=== PATIENT | male | born 1945 | race Caucasian/White ===

== ENCOUNTER → 2016-07-17 | Outpatient (CLI) | payer OTHER ==
[~2016-07-17] MED LIST: ASPI81TA21 PO; ATV/1 PO; CHOL100010 PO; HMLI SC; HYDROCODONE PO; INSDGI SC; LISI40TA PO; LORSARTIN PO; LSX/40 PO; LSX10 PO; METO50TA7 PO; PRLSR20 PO; [UNRECOGNIZED DRUG - OTHER] PO
[2016-07-17 12:00] LABS: HEMATOCRIT 40.8 % (42-52); MEAN CELL VOLUME 88.3 fL (80-100); MEAN CORPUSCULAR HEMOGLOBIN 30.3 pg (25-34); MEAN CORPUSCULAR HGB CONC 34.3 g/dl (32-36); MEAN PLATELET VOLUME 10.3 fL (7.4-10.4); PLATELET COUNT 191 K/uL (130-400); RED BLOOD COUNT 4.62 M/uL (4.7-6.1); WHITE BLOOD COUNT 7.12 K/uL (4.8-10.8)
[2016-07-17 12:18] LABS: URINE PROTIEN/CREAT RATIO 1.6 (0-0.2); URINE TOTAL PROTEIN 175.9 mg/dl (0-11.9)
[2016-07-17 12:20] LABS: ESTIMATED AVERAGE GLUCOSE 183 mg/dl; HA1C FLAG Normal (Normal)
[2016-07-17 12:40] LABS: URINE APPEARANCE CLEAR (CLEAR); URINE BILIRUBIN NEG (NEG); URINE COLOR YELLOW; URINE NITRITE NEG (NEG); URINE PH 5.5 (4.5-7.5); URINE SPECIFIC GRAVITY 1.018 (1.000-1.030); UROBILINOGEN NEG (NEG)
[2016-07-17 12:45] LABS: MANUAL MICROSCOPIC REQUIRED? NO; REVIEW REQ? NO
[2016-07-17 12:50] LABS: BLOOD UREA NITROGEN 32 mg/dl (7-18); CALCIUM 8.9 mg/dl (8.5-10.1); CARBON DIOXIDE 21 mmol/L (21-32); CHLORIDE 107 mmol/L (98-107); GLUCOSE 173 mg/dl (70-99); POTASSIUM 4.8 mmol/L (3.5-5.1); SODIUM 141 mmol/L (136-145)
[2016-07-17 12:51] LABS: PHOSPHORUS 2.7 mg/dl (2.5-4.9)
== END | disposition home or self-care (01) ==
LOC: C.LABBFT 08:13
PROVIDERS: ATTEND Nurse Practitioner Family
DX: I12.9 Hypertensive chronic kidney disease with stage 1 through stage 4 chronic kidney disease, or unspecified chronic kidney disease (principal); N18.3 Chronic kidney disease, stage 3 (moderate); N25.81 Secondary hyperparathyroidism of renal origin; R80.9 Proteinuria, unspecified; E55.9 Vitamin D deficiency, unspecified; E11.21 Type 2 diabetes mellitus with diabetic nephropathy

== ENCOUNTER → 2016-10-22 | Outpatient (CLI) | payer OTHER ==
[2016-10-22 12:23] LABS: BASO % 0.3 %; BASO ABS # 0.02 K/uL (0-0.2); COMPLETE YES; EOS % 2.6 %; HEMATOCRIT 40.8 % (42-52); IG% 0.4 %; LYMPH ABS # 2.28 K/uL (1.2-3.4); MEAN CELL VOLUME 89.9 fL (80-100); MEAN CORPUSCULAR HEMOGLOBIN 29.7 pg (25-34); MEAN CORPUSCULAR HGB CONC 33.1 g/dl (32-36); MEAN PLATELET VOLUME 10.7 fL (7.4-10.4); NEUT % 55.7 %; PLATELET COUNT 210 K/uL (130-400); RED BLOOD COUNT 4.54 M/uL (4.7-6.1)
[2016-10-22 12:52] LABS: ESTIMATED AVERAGE GLUCOSE 163 mg/dl; HA1C FLAG Normal (Normal)
[2016-10-22 12:56] LABS: ALT/SGPT 19 U/L (12-78); BLOOD UREA NITROGEN 27 mg/dl (7-18); CALCIUM 9.2 mg/dl (8.5-10.1); CARBON DIOXIDE 27 mmol/L (21-32); CHLORIDE 108 mmol/L (98-107); GLUCOSE 170 mg/dl (70-99); POTASSIUM 4.7 mmol/L (3.5-5.1); SODIUM 139 mmol/L (136-145)
[2016-10-22 13:07] LABS: ALB/GLOB RATIO 0.9 (0.9-2); ALKALINE PHOSPHATASE 129 U/L (45-117); AST/SGOT 18 U/L (15-37)
== END | disposition home or self-care (01) ==
LOC: C.LABBFT 09:42
PROVIDERS: ATTEND Nurse Practitioner Family
DX: E11.29 Type 2 diabetes mellitus with other diabetic kidney complication (principal); R06.02 Shortness of breath

== ENCOUNTER → 2017-02-09 | Outpatient (CLI) | payer OTHER ==
[~2017-02-09] MED LIST changes: +ASPI-319 PO; -ASPI81TA21 PO; -METO50TA7 PO; +METO50TA8 PO
[2017-02-09 12:31] LABS: HEMATOCRIT 41.7 % (42-52); HEMOGLOBIN 14.1 g/dL (14.0-18.0); MEAN CELL VOLUME 89.5 fL (80-100); MEAN CORPUSCULAR HEMOGLOBIN 30.3 pg (25-34); MEAN CORPUSCULAR HGB CONC 33.8 g/dl (32-36); MEAN PLATELET VOLUME 10.8 fL (7.4-10.4); PLATELET COUNT 189 K/uL (130-400); RED CELL DISTRIBUTION WIDTH CV 13.6 % (11.5-14.5); RED CELL DISTRIBUTION WIDTH SD 44.1 fL (36.4-46.3); RETIC COUNT % 1.2 % (0.5-2.0); WHITE BLOOD COUNT 8.02 K/uL (4.8-10.8)
[2017-02-09 12:59] LABS: ALBUMIN 3.3 gm/dl (3.4-5.0); BLOOD UREA NITROGEN 26 mg/dl (7-18); CARBON DIOXIDE 28 mmol/L (21-32); CREATININE 1.79 mg/dl (0.60-1.40); GLUCOSE 90 mg/dl (70-99); POTASSIUM 4.5 mmol/L (3.5-5.1); SODIUM 137 mmol/L (136-145)
[2017-02-09 13:02] LABS: HEMOGLOBIN A1C 7.5 % (4.5-5.6)
[2017-02-09 13:05] LABS: CHOLESTEROL 206 mg/dl (0-200); LDL CHOLESTEROL CALCULATED 131 mg/dl; PHOSPHORUS 2.8 mg/dl (2.5-4.9); TRANSFERRIN 198 mg/dl (200-360)
--- NOTE | 2017-02-15 14:21 | CODING QUERY MEDICAL NECESSITY ---
CQSUPPORTING DIAGNOSIS NEEDED A supporting diagnosis is required for the test/procedure performed on this patient in order for us to be reimbursed by the patient's insurance. Please provide a supporting diagnosis for the following test/procedure listed below next to the test name along with your signature. *If there is no additional diagnosis for this patient that would support the following test/procedure please document that below next to the test/procedure. Test(s)/Procedure(s) that require a supporting diagnosis: DOS 02/09/17 VITAMIN B12 TEST FOLIC ACID TEST Provider Signature: Date: Thank you Alissa Vasquez Health Information Management Once completed, please kindly fax back to [phone] For questions please call [phone]
== END | disposition home or self-care (01) ==
LOC: C.LABBFT 08:21
PROVIDERS: ATTEND Physician Assistant Medical
DX: D64.9 Anemia, unspecified (principal); E11.21 Type 2 diabetes mellitus with diabetic nephropathy; N18.3 Chronic kidney disease, stage 3 (moderate); N25.81 Secondary hyperparathyroidism of renal origin; R80.9 Proteinuria, unspecified; E55.9 Vitamin D deficiency, unspecified; I12.9 Hypertensive chronic kidney disease with stage 1 through stage 4 chronic kidney disease, or unspecified chronic kidney disease; R53.83 Other fatigue

== ENCOUNTER → 2017-06-17 | Outpatient (CLI) | payer OTHER ==
[2017-06-17 12:59] LABS: HEMOGLOBIN A1C 7.8 % (4.5-5.6)
== END | disposition home or self-care (01) ==
LOC: C.LABBFT 09:13
PROVIDERS: ATTEND Nurse Practitioner Family
DX: E11.21 Type 2 diabetes mellitus with diabetic nephropathy (principal)

== ENCOUNTER → 2017-09-08 | Outpatient (CLI) | payer OTHER ==
[2017-09-08 17:19] LABS: HEMATOCRIT 36.4 % (42-52); HEMOGLOBIN 12.8 g/dL (14.0-18.0); MEAN CELL VOLUME 88.1 fL (80-100); MEAN CORPUSCULAR HGB CONC 35.2 g/dl (32-36); MEAN PLATELET VOLUME 11.3 fL (7.4-10.4); PLATELET COUNT 199 K/uL (130-400); RED CELL DISTRIBUTION WIDTH CV 13.2 % (11.5-14.5); RED CELL DISTRIBUTION WIDTH SD 42.3 fL (36.4-46.3); WHITE BLOOD COUNT 9.33 K/uL (4.8-10.8)
[2017-09-08 17:32] LABS: ALBUMIN 3.5 gm/dl (3.4-5.0); BLOOD UREA NITROGEN 65 mg/dl (7-18); CALCIUM 8.9 mg/dl (8.5-10.1); CARBON DIOXIDE 26 mmol/L (21-32); CHOLESTEROL 211 mg/dl (0-200); CREATININE 2.93 mg/dl (0.60-1.40); GLUCOSE 243 mg/dl (70-99); PHOSPHORUS 3.8 mg/dl (2.5-4.9); SODIUM 133 mmol/L (136-145)
== END | disposition home or self-care (01) ==
LOC: C.LABBFT 13:46
PROVIDERS: ATTEND Physician Assistant Medical
DX: I12.9 Hypertensive chronic kidney disease with stage 1 through stage 4 chronic kidney disease, or unspecified chronic kidney disease (principal); N18.3 Chronic kidney disease, stage 3 (moderate); N25.81 Secondary hyperparathyroidism of renal origin; D64.9 Anemia, unspecified; R80.9 Proteinuria, unspecified; E55.9 Vitamin D deficiency, unspecified; R60.9 Edema, unspecified; E78.5 Hyperlipidemia, unspecified

== ENCOUNTER → 2017-09-28 | Outpatient (CLI) | payer OTHER ==
[2017-09-28 13:36] LABS: HEMOGLOBIN A1C 7.4 % (4.5-5.6)
[2017-09-28 13:55] LABS: ALBUMIN 3.4 gm/dl (3.4-5.0); BLOOD UREA NITROGEN 32 mg/dl (7-18); CALCIUM 9.1 mg/dl (8.5-10.1); CARBON DIOXIDE 28 mmol/L (21-32); GLUCOSE 89 mg/dl (70-99); PHOSPHORUS 3.4 mg/dl (2.5-4.9); POTASSIUM 4.9 mmol/L (3.5-5.1); SODIUM 141 mmol/L (136-145)
== END | disposition home or self-care (01) ==
LOC: C.LABBFT 07:36
PROVIDERS: ATTEND Internal Medicine Nephrology
DX: I12.9 Hypertensive chronic kidney disease with stage 1 through stage 4 chronic kidney disease, or unspecified chronic kidney disease (principal); N18.3 Chronic kidney disease, stage 3 (moderate); R80.9 Proteinuria, unspecified; N25.81 Secondary hyperparathyroidism of renal origin; E55.9 Vitamin D deficiency, unspecified; R60.9 Edema, unspecified; E11.65 Type 2 diabetes mellitus with hyperglycemia

== ENCOUNTER 2023-01-16 22:41 | Observation (INO) ==
--- NOTE | 2023-01-16 23:10 | Emergency Department Note ---
Impression & Plan SOB (shortness of breath), Anemia, Weakness, IDALMIS (acute kidney injury), Acute GI bleeding, Pedal edema ED Provider Note NAME: NADER AMAYA AGE: 77 SEX: M : 1945 ARRIVES VIA: Walk-In INFORMANT: [Patient][] ED PROVIDER(S): [Matthew Conner MD] CHIEF COMPLAINT: Weakness HISTORY OF PRESENT ILLNESS: The patient is a 77-year-old male who has been on prednisone for months. He is on this medication for temporal arteritis. He is weaning down his dose. Patient has been using Aleve as well for joint pain and arthritis. Patient in the last week or so has noticed leg edema and increasing shortness of breath. He has been weaker. He recently went to his doctor's office and was told that he was anemic. He did send in some stool samples and the stool was positive for blood. The patient states that tonight, he was exceptionally weak and his knees wanted to buckle. He did not fall. No chest pain, no cough or cold or fever. He has had no urinary complaints. He does admit to some black stool. Of note, the patient just stopped taking his Aleve this past week. PMHx/PSHx/Social Hx: See Below PHYSICAL EXAM: GENERAL: Patient is in no acute distress. HEENT: No acute trauma, normocephalic atraumatic, mucous membranes moist, no nasal congestion. NECK: No stridor, no adenopathy, no meningismus, trachea is midline. LUNGS: Clear to auscultation bilaterally, no wheeze, no rhonchi, breath sounds equal. HEART: 2/6 systolic murmur, regular rate and rhythm. ABDOMEN: Soft, nontender, no peritonitis. Obese. EXTREMITIES: No cyanosis, full range of motion of all the joints without pain or difficulty. Moderate bilateral pedal edema. NEUROLOGIC: Oriented x 3, no acute motor or sensory deficits, no focal weakness. SKIN: No jaundice, no diaphoresis. DIFFERENTIAL DIAGNOSIS: GI bleed, anemia, electrolyte imbalance, renal or liver failure, WI, dysrhythmia, among others. EMERGENCY DEPARTMENT PROCEDURES: MEDICAL DECISION MAKING: There is a mild leukocytosis, this is likely from his chronic steroid use--the patient has had a slight white count elevation as of late. Patient is anemic with a hemoglobin of 9.2. This is a significant drop for him looking back at previous testing. As per the testing done outpatient, his stool did return heme positive. There was a normal platelet count. No coagulopathy. There was evidence for acute kidney injury with a creatinine of 3.04. The BUN was quite high at 122, likely consistent with upper GI bleeding. No worrisome liver enzyme elevation. Patient appeared to be in a euthyroid state. BNP was somewhat elevated consistent with some fluid overload. ECG showed what appears to be a sinus rhythm with a left bundle branch block, no obvious ST elevation. Cardiac enzyme testing x 1 is slightly elevated. This troponin elevation could be secondary to cardiac injury or potentially just mismatch from his dyspnea and anemia. COVID, influenza and RSV test were negative. On exam, the patient appeared quite pale. He was not hypotensive or tachycardic. He did have moderate pedal edema. The patient was given IV Protonix and IV Pepcid. This was given to help reduce the chance for further GI bleeding. Patient is not currently in need of a packed red blood cell transfusion. His hemoglobin is still above 8. I spoke with the patient and his . I did speak with the director of casework. Hospitalization is indicated. The patient requires hemoglobin trending, he will need seen by GI, he would likely benefit from an endoscopy. Patient is comfortable with staying in the hospital. He understands the findings on our testing today. I do think his weakness and shortness of breath are secondary to his anemia/GI bleed. Prior/Outside records/notes reviewed: Recent family practice note from 01/14/2023 discussing his anemia and high blood pressure and the plan moving forward. ECG per my interpretation: Indication was weakness. The ECG shows what appears to be a sinus rhythm with a rate of 90. There is a left bundle branch block. There is some ectopy noted. There is no concerning ST elevation. The QTc is 474. Baseline artifact is seen. Compared to an ECG from 28 October 2022, baseline artifact is now present. Ectopy is now present. Continuous Cardiac Monitoring per my interpretation: An order was placed for continuous cardiac monitoring. The monitor shows a rate of 86 with sinus rhythm with a PVC. Imaging/x-ray results per my interpretation: Chest x-ray shows some cardiomegaly and some potential mild fluid overload, no pneumonia or pneumothorax. Chronic Medical/Social conditions affecting care: Obesity, temporal neuritis. Care/Management discussed with: Case management and the on-call hospitalist. Level of care consideration(s): After review of the information above and other included data: --I believe the patient requires escalation of care to admission Critical Care Note: I have personally spent 52 minutes of critical care time in the direct management of this patient. This includes bedside care, interpretation of diagnostic studies, and testing, discussion with consultants, patient, and family members, and other required patient management activities. This 52 minutes is in excess of all separately billable procedures. DISPOSITION: Admission Past Med/Surg History Medical History LYNDA (obstructive sleep apnea) no device Type 2 diabetes mellitus IDDM Umbilical hernia present Eye problem right/hole present in this eye for yrs/follows Dr. Mclean - 2 mon ago vessel broken & healing/recent f/u2 weeks ago and told eye is fine. History of anesthesia reaction remote hx w/ tonsillectomy/ ether : n/v. Unique anesthetic considerations on preoperative anesthesia assessment becomes anxious when lies flat/no sob. Snoring Positive colorectal cancer screening using Cologuard test seeing GI specialist after up coming procedure Gallstones present for several yrs Gastroparesis Hx of gout Hyperlipidemia Chronic rhinitis Chronic idiopathic urticaria hx Chronic kidney disease, stage 4 (severe) follows with Dr. Lance, Baseline Cr 2.4 w/ EGFR 24 cc/min Chronic diastolic congestive heart failure follows with Dr. Issa Bilateral tinnitus Sensorineural hearing loss (SNHL) of both ears Diabetic peripheral neuropathy associated with type 2 diabetes mellitus MRSA (methicillin resistant staph aureus) culture positive no known hx that is aware of Left bundle-branch block chronic Hypertension Anemia Surgical History History of tooth extraction History of myringotomy History of carpal tunnel surgery left History of surgical removal of skin lesion History of tonsillectomy Family History Father Bladder cancer Diabetes Mother Uterine cancer Breast cancer Heart disease Hypertension Denies family history of Ovarian cancer Prostate cancer Coronary heart disease Myocardial infarction Colorectal cancer Social History Smoking Status: Unknown if ever smoked Tobacco Type: Cigarettes Age Started Using Tobacco: 14; Age Quit Using Tobacco: 24; packs per day: 3; Second Hand Exposure: No; Do You Dip or Chew Tobacco: No; Hx Alcohol Use: Yes Hx Substance Use: No Preferred Language: Faroese Communication Ability: Effective Communication Ability Comment: TRIBE - uses hearing aides and microphone /pt does phone interview Visual Impairment: No Limitations 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 Beliefs That Will Affect Care: None marital status: Current Living Situation: Spouse Current Living Situation Comment: richar and family living in basement current occupational status: retired 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[employer] How many Children do You have: 4 Feels Safe at Home: Yes Childhood Exposure to Second-Hand Smoke: No Diet: diabetic and regular caffeine: Yes during the past year weight has: decreased > 10 lbs Dental Care, Regularly: No Physical Activity Frequency: Daily Seatbelt Use: never Sunscreen Use: No Assistive Devices: Cane, Glasses and Hearing Aid - Bilateral Allergies Allergies Allergy/AdvReac Type Severity Reaction Status Date / Time atorvastatin Allergy Intermediate MUSCLE Verified 01/14/23 11:37 ACHES exenatide Allergy Intermediate SWELLING Verified 01/14/23 11:37 metformin Allergy Intermediate KIDNEY Verified 01/14/23 11:37 DISEASE phenol Allergy Intermediate SWELLING Verified 01/14/23 11:37 pioglitazone Allergy Intermediate SWELLING Verified 01/14/23 11:37 simvastatin Allergy Intermediate MUSCLE Verified 01/14/23 11:37 ACHES ether Allergy Mild n/v Verified 01/14/23 11:37 Home Meds Home Medications Medication Instructions Recorded Confirmed allopurinol 100 mg tablet 100 mg PO QAM 10/14/22 01/16/23 aspirin 81 mg tablet,delayed 81 mg PO QAM 10/14/22 01/16/23 release (Adult Low Dose Aspirin) fluticasone propionate 50 2 spray intranasal UD PRN 10/14/22 01/16/23 mcg/actuation nasal Congestion spray,suspension lorazepam 0.5 mg tablet 0.5 mg PO DAILY PRN anxiety/pain 10/14/22 01/16/23 nystatin 100,000 unit/gram topical 1 applic topical DAILY PRN Rash 10/14/22 01/16/23 powder polyethylene glycol 3350 17 gram 17 g PO HS 10/14/22 01/16/23 oral powder packet (Miralax) ibuprofen 200 mg-diphenhydramine 1 cap PO HS 10/16/22 01/16/23 HCl 25 mg capsule (Advil PM Liqui-Gels) acetaminophen 500 mg tablet 1,000 mg PO TID PRN Pain 10/22/22 01/16/23 (Tylenol Extra Strength) doxazosin 4 mg tablet (Cardura) 4 mg PO HS 10/28/22 01/16/23 carvedilol 25 mg tablet 12.5 mg PO BID 12/02/22 01/16/23 insulin NPH isoph U-100 human 100 29 unit subcut QAM 12/02/22 01/16/23 unit/mL (3 mL) subcutaneous pen (Novolin N FlexPen) Lactobacillus rhamnosus-Bifidobac. 1 cap PO QAM 12/03/22 01/16/23 animalis 3 billion cell capsule (SimpleHoney) dimenhydrinate 50 mg tablet 50 mg PO Q8H PRN Dizziness 12/03/22 01/16/23 (Dramamine) guaifenesin 1,200 mg tablet, 1,200 mg PO BID 12/03/22 01/16/23 extended release 12 hr (Mucinex) loratadine 10 mg tablet (Claritin) 10 mg PO QAM 12/03/22 01/16/23 prednisone 20 mg tablet 30 mg PO QAM 01/06/23 01/16/23 Previous Rx's Medication Instructions Recorded nitroglycerin 0.3 mg sublingual 0.3 mg sublingual Q5M PRN chest 07/11/20 tablet (Nitrostat) pain #30 tabs flash glucose sensor (FreeStyle #1 ea 11/17/21 Saleem 2 Sensor kit) levalbuterol tartrate 45 2 inh inhalation Q6H PRN shortness 05/19/22 mcg/actuation aerosol inhaler of breath #15 grams (Xopenex HFA) alirocumab 75 mg/mL subcutaneous 75 mg subcut Q14D #1 mL 06/23/22 pen injector (Praluent Pen) isosorbide mononitrate 30 mg 30 mg PO BID #180 tabs 07/22/22 tablet,extended release 24 hr azelastine 137 mcg (0.1 %) nasal 2 spray intranasal BID PRN nasal 07/29/22 spray aerosol congestion #30 mL Tresiba FlexTouch U-200 200 32 unit (0.16 mL) subcut HS 30 10/06/22 unit/mL (3 mL) subcutaneous pen days #4.8 Boxes (insulin degludec) omeprazole 20 mg capsule,delayed 20 mg PO BID #180 caps 10/30/22 release pen needle, diabetic 32 gauge x #150 ea 11/17/22 5/32" (BD Denia 2nd Gen Pen Needle) insulin aspart U-100 100 unit/mL 33 unit (0.33 mL) subcut TIDM #2 11/20/22 (3 mL) subcutaneous pen (Novolog Boxes FlexPen U-100 Insulin aspart) olmesartan 40 mg tablet 40 mg PO DAILY #90 tabs 12/22/22 miscellaneous medical supply #2 ea 01/06/23 (Anti-Embolism Stockings) ergocalciferol (vitamin D2) 1,250 1,250 mcg PO MONTHLY #3 caps 01/11/23 mcg (50,000 unit) capsule mupirocin 2 % topical ointment See Rx Instructions topical BID 01/11/23 PRN skin wound #15 grams torsemide 40 mg tablet See Rx Instructions .Route 01/14/23 .COMPLEX #180 tabs Results & Data (ED) Vital Signs Vital Signs - 24 hr 01/16/23 22:42 01/16/23 22:56 01/16/23 23:01 Temperature 36 C L Temperature Source Temporal Artery Scan Pulse Rate 85 83 Pulse Rate [Apical] 86 Respiratory Rate 19 18 Respiratory Effort / Characteristics Non-Labored Spontaneous Non-Labored Spontaneous Respiratory Depth Normal Normal Respiratory Pattern Regular Blood Pressure 147/62 H Blood Pressure [Right Arm] 181/87 H Blood Pressure Mean 90 Blood Pressure Mean [Right Arm] 118 Blood Pressure Position [Right Arm] Lying Pulse Oximetry 95 94 Oxygen Delivery Method Room Air Room Air Sepsis Recent Fever Within 48 Hours No Sepsis New/Unexplained Change in Mental Status N/A Sepsis Action Taken by Nursing No Action Required Home Medications Current Medication List: was personally reviewed by me Laboratory Data Attestation: I reviewed the patient's lab results. 01/16/23 23:50 01/16/23 23:50 Lab Results 01/16/23 01/16/23 Range/Units 23:50 23:56 WBC 13.57 H (4.8-10.8) K/ul RBC 2.95 L (4.70-6.10) M/uL Hgb 9.2 L (14.0-18.0) g/dl Hct 26.8 L (42.0-52.0) % MCV 90.8 (80.0-100.0) fL MCH 31.2 (25.0-34.0) pg MCHC 34.3 (32.0-36.0) g/dL RDW Std Deviation 49.7 H (36.4-46.3) fL RDW Coeff of [place] 14.9 H (11.5-14.5) % Plt Count 247 (130-400) K/uL MPV 10.5 (9.4-12.4) fL Immature Gran % (Auto) 4.2 % Neut % (Auto) 80.6 % Lymph % (Auto) 7.4 % [place] % (Auto) 4.9 % Eos % (Auto) 2.6 % Baso % (Auto) 0.3 % Neut # (Auto) 10.93 H (1.40-6.50) K/uL Lymph # (Auto) 1.01 L (1.20-3.40) K/uL [place] # (Auto) 0.67 H (0.11-0.59) K/uL Eos # (Auto) 0.35 (0.00-0.50) K/uL Baso # (Auto) 0.04 (0.00-0.20) K/uL Immature Gran # (Auto) 0.57 H (0.01-0.20) K/uL Absolute Nucleated RBC 0.03 (0.00-0.12) K/uL Nucleated RBC % (auto) 0.2 % PT 11.5 (9.0-12.0) Seconds INR 1.1 (0.9-1.1) APTT 21 (21-31) Seconds PTT Ratio 0.7 Sodium 135 L (136-145) mmol/L Potassium 4.6 (3.5-5.1) mmol/L Chloride 98 (98-107) mmol/L Carbon Dioxide 25 (21-32) mmol/L Anion Gap 12 H (3-11) BUN 122 H (6-23) mg/dl Creatinine 3.04 H (0.6-1.4) mg/dl Est Cr Clr Drug Dosing Not Reportable Est GFR ( Amer) 21.7 ml/min Est GFR (Non-Af Amer) 18.7 ml/min BUN/Creatinine Ratio 40.1 H (10-20) Glucose 225 H (70-99(Fasting)) mg/dl Calcium 9.1 (8.6-10.3) mg/dl Magnesium 2.0 (1.7-2.4) mg/dl Total Bilirubin 0.6 (0.2-1.0) mg/dl AST 14 (13-39) U/L ALT 15 (7-52) U/L Alkaline Phosphatase 73 (34-104) U/L Troponin I High Sens 26.1 H (0-20) pg/ml B-Natriuretic Peptide 103 H (0-100) pg/ml Total Protein 6.0 (6.0-8.3) gm/dl Albumin 3.0 L (3.4-5.0) gm/dl Globulin 3.0 (2.5-4.0) gm/dl Albumin/Globulin Ratio 1.0 (0.9-2) TSH 3.025 (0.300-4.500) uIu/ml SARS-CoV-2 (PCR) NEGATIVE (Negative) Influenza Type A (PCR) Negative (Neg) Influenza Type B (PCR) Negative (Neg) RSV (RT-PCR) Negative (Neg) Blood Type O Positive Antibody Screen NEGATIVE Discharge Plan Visit Data Chief Complaint: Weakness Stated Complaint: WEAKNESS, SOB ED Provider: Matthew Conner Discharge Problem: SOB (shortness of breath), Anemia, Weakness, IDALMIS (acute kidney injury), Acute GI bleeding, Pedal edema Patient Disposition: Admitted As Inpatient Condition: Fair Forms Stand Alone Forms: My [facility] Prescriptions Prescriptions: No Action (DME) FreeStyle Saleem 2 Sensor Kit See Rx Instructions .Route Qty: 1 0RF Rx Instructions: Change sensor every 14 days levalbuterol tartrate [Xopenex HFA] 45 mcg/actuation HFA aerosol inhaler 2 inh INH Q6H PRN (Reason: shortness of breath) Qty: 15 2RF isosorbide mononitrate 30 mg tablet extended release 24 hr 30 mg PO BID Qty: 180 3RF insulin degludec [Tresiba FlexTouch U-200] 200 unit/mL (3 mL) insulin pen 32 unit SQ HS 30 Days Qty: 4.8 5RF omeprazole 20 mg capsule,delayed release(DR/EC) 20 mg PO BID Qty: 180 3RF (DME) pen needle, diabetic [BD Denia 2nd Gen Pen Needle] 32 gauge x 5/32" needle See Rx Instructions miscellaneous .MEDSUPPLY Qty: 150 5RF Rx Instructions: change new pen needle 5x a day insulin aspart U-100 [Novolog FlexPen U-100 Insulin] 100 unit/mL (3 mL) insulin pen 33 unit SQ TIDM Qty: 2 3RF Rx Instructions: Inject per sliding scale with meals up to 33 units daily (DME) Anti-Embolism Stockings Misc See Rx Instructions .Route Qty: 2 0RF Rx Instructions: As directed anti-embolism stockings ergocalciferol (vitamin D2) 1,250 mcg (50,000 unit) capsule 1,250 mcg PO MONTHLY Qty: 3 3RF Rx Instructions: TAKE THIS MED MONTHLY ON THE FIRST WEDNESDAY OF THE MONTH. mupirocin 2 % ointment See Rx Instructions TOP BID PRN (Reason: skin wound) Qty: 15 0RF Rx Instructions: Apply a small amount to open area of skin topically twice a day PRN; torsemide 40 mg tablet See Rx Instructions .ROUTE .COMPLEX Qty: 180 2RF Rx Instructions: Alternate 40 mg daily and 40 mg BID every other day; nitroglycerin [Nitrostat] 0.3 mg tablet, sublingual 0.3 mg sublingual Q5M PRN (Reason: chest pain) Qty: 30 3RF Patient Comments: has never needed it Rx Instructions: do not exceed 3 doses per episode carvedilol 25 mg tablet 12.5 mg PO BID Rx Instructions: must administer with a meal/food Novolin N FlexPen 100 unit/mL (3 mL) insulin pen 29 unit subcut QAM Rx Instructions: To start 23 units in the morning with Prednisone. Titrate up per protocol up to 46 units every morning. olmesartan 40 mg tablet 40 mg PO DAILY Qty: 90 3RF azelastine 137 mcg (0.1 %) aerosol,spray 2 spray intranasal BID PRN (Reason: nasal congestion) Qty: 30 11RF Rx Instructions: administer into each nostril acetaminophen [Tylenol Extra Strength] 500 mg tablet 1,000 mg PO TID PRN (Reason: Pain) Praluent Pen 75 mg/mL pen injector 75 mg subcut Q14D Qty: 1 6RF Patient Comments: will take dose 12/04/22 Rx Instructions: inject subcutaneously into abdomen, thigh, or upper arm; rotate sites allopurinol 100 mg tablet 100 mg PO QAM aspirin [Adult Low Dose Aspirin] 81 mg tablet,delayed release (DR/EC) 81 mg PO QAM lorazepam 0.5 mg tablet 0.5 mg PO DAILY PRN (Reason: anxiety/pain ) nystatin 100,000 unit/gram powder 1 applic TOP DAILY PRN (Reason: Rash) fluticasone propionate 50 mcg/actuation spray,suspension 2 spray intranasal UD PRN (Reason: Congestion) Rx Instructions: administer into each nostril polyethylene glycol 3350 [Miralax] 17 gram Powder In Packet 17 g PO HS Advil PM Liqui-Gels 200-25 mg Capsule 1 cap PO HS doxazosin [Cardura] 4 mg tablet 4 mg PO HS dimenhydrinate [Dramamine] 50 mg Tablet 50 mg PO Q8H PRN (Reason: Dizziness) loratadine [Claritin] 10 mg Tablet 10 mg PO QAM guaifenesin [Mucinex] 1,200 mg Tablet Extended Release 12hr 1,200 mg PO BID SimpleHoney 3 billion cell Capsule 1 cap PO QAM prednisone 20 mg tablet 30 mg PO QAM Referrals Referrals: Mariusz Bustamante MD [Primary Care Provider] - Discharge Problem: Anemia Qualifiers: Anemia type: unspecified type Qualified Code(s): D64.9 - Anemia, unspecified
[2023-01-17 00:22] LABS: Basophils # (auto) 0.04 K/uL (0.00-0.20); Basophils % (auto) 0.3 %; Eosinophils # (auto) 0.35 K/uL (0.00-0.50); Eosinophils % (auto) 2.6 %; Hematocrit (blood only) 26.8 % (42.0-52.0); Hemoglobin 9.2 g/dl (14.0-18.0); Immature Granulocytes # (auto) 0.57 K/uL (0.01-0.20); Immature Granulocytes % (auto) 4.2 %; Lymphocytes # (auto) 1.01 K/uL (1.20-3.40); Lymphocytes % (auto) 7.4 %; Mean Corpuscular Hemoglobin 31.2 pg (25.0-34.0); Mean Corpuscular Hgb Conc 34.3 g/dL (32.0-36.0); Mean Corpuscular Volume 90.8 fL (80.0-100.0); Mean Platelet Volume 10.5 fL (9.4-12.4); Monocytes # (auto) 0.67 K/uL (0.11-0.59); Monocytes % (auto) 4.9 %; Neutrophils # (auto) 10.93 K/uL (1.40-6.50); Neutrophils % (auto) 80.6 %; Nucleated RBC # (auto) 0.03 K/uL (0.00-0.12); Nucleated RBC % (auto) 0.2 %; Platelet Count 247 K/uL (130-400); RDW Coefficient of Variation 14.9 % (11.5-14.5); RDW Standard Deviation 49.7 fL (36.4-46.3); Red Blood Count 2.95 M/uL (4.70-6.10); White Blood Count 13.57 K/ul (4.8-10.8)
[2023-01-17 00:31] LABS: Alanine Aminotransferase 15 U/L (7-52); Alkaline Phosphatase 73 U/L (34-104); Anion Gap 12 (3-11); Aspartate Aminotransferase 14 U/L (13-39); BUN Creatinine Ratio 40.1 (10-20); Bilirubin,Total 0.6 mg/dl (0.2-1.0); Blood Urea Nitrogen 122 mg/dl (6-23); Calcium 9.1 mg/dl (8.6-10.3); Carbon Dioxide 25 mmol/L (21-32); Chloride 98 mmol/L (98-107); Est GFR (African American) 21.7 ml/min; Est GFR (Non-African American) 18.7 ml/min; Glucose 225 mg/dl (70-99(Fasting)); Potassium 4.6 mmol/L (3.5-5.1); Sodium 135 mmol/L (136-145)
[2023-01-17 00:36] LABS: Troponin I High Sensitivity 26.1 pg/ml (0-20)
[2023-01-17] MEDS ORDERED: FAMOTIDINE 20MG IV PUSH 20 MG/5 ML SYR IV STA (00:38)
[2023-01-17] MEDS ORDERED: PANTOprazole 80 MG in DEXTROSE 5% 100 ML IV STA (00:38)
[2023-01-17 00:45] LABS: INR 1.1 (0.9-1.1); Partial Thromboplastin Ratio 0.7; Partial Thromboplastin Time 21 Seconds (21-31); Prothrombin Time 11.5 Seconds (9.0-12.0)
[2023-01-17 00:46] LABS: Thyroid Stimulating Hormone 3.025 uIu/ml (0.300-4.500)
[2023-01-17 00:52] LABS: Influenza A virus by PCR Negative (Neg); Influenza B virus by PCR Negative (Neg); RSV by PCR Negative (Neg); SARS CoV2 RNA(COVID-19) Ceph NEGATIVE (Negative)
[2023-01-17] MEDS ORDERED: FUROSEMIDE 40 MG/4 ML VIAL IV ONE (01:36)
[2023-01-17 01:58] LABS: Appearance Urine Clear (Clear); Bacteria Urine Automated Negative (Negative); Bilirubin Urine Negative (Negative); Blood Urine Negative (Negative); Color Urine Yellow; Epithelial Cell Urine Auto 0-5 /lpf (0-5); Glucose Urine UA Negative (Negative); Ketones Urine Negative (Negative); Leukocyte Esterase Urine Negative (Negative); Nitrite Urine Negative (Negative); Protein Urine 1+ (Negative); RBC Urine Automated 0-4 /hpf (0-4); Specific Gravity Urine 1.013 (1.000-1.030); Urobilinogen Urine Negative (Negative); WBC Urine Automated 0 /hpf (0-5); pH Urine 6.5 (4.5-7.5)
[2023-01-17] MEDS ORDERED: GLUCAGON FOR INJ 1 MG VIAL SQ PRN (02:39)
[2023-01-17] MEDS ORDERED: ONDANSETRON INJ 2 MG/ML 2 ML VIAL IV PRN (02:39)
[2023-01-17] MEDS ORDERED: GLUCOSE 40% GEL 15 GM TUBE PO PRN (02:39)
[2023-01-17] MEDS ORDERED: GLUCOSE 10 TAB/TUBE PO PRN (02:39)
[2023-01-17] MEDS ORDERED: DEXTROSE 50% 50 ML SYRINGE IV PRN (02:39)
[2023-01-17] MEDS ORDERED: LEVALBUTEROL TARTRATE 15 GM HFA.AER.AD INH PRN (02:39)
[2023-01-17] MEDS ORDERED: CARBOHYDRATES FOR HYPOGLYCEMIA PO PRN (02:39)
[2023-01-17] MEDS ORDERED: METOPROLOL TARTRATE 1 MG/ML VIAL IV PRN (03:32)
--- NOTE | 2023-01-17 03:55 | History & Physical Report ---
Date of Service January 17, 2023 Assessment & Plan (1) Bilateral lower extremity edema: (2) Acute GI bleeding: (3) Acute kidney injury superimposed on CKD: (4) Acute on chronic diastolic CHF (congestive heart failure), NYHA class 3: (5) On corticosteroid therapy: (6) Temporal arteritis: (7) Type 2 diabetes mellitus, with long-term current use of insulin: (8) Background diabetic retinopathy associated with type 2 diabetes mellitus: (9) Diabetic nephropathy associated with type 2 diabetes mellitus: (10) Chronic kidney disease, stage 4 (severe): (11) Elevated troponin: (12) Symptomatic anemia: Plan Symptomatic anemia/acute GI bleeding- Likely associated with chronic steroid use since July, and use of ibuprofen twice daily. Ibuprofen was discontinued 2 days ago, Hemoglobin has decreased from 12.8 on 11/27/2019 3-9.2 today Hemoccult stools are positive N.p.o. Given Protonix 80 mg IV in the ED, and will continue 40 mg IV twice daily Also given famotidine 20 mg IV in ED H&H every 6 hours Type and screen, but no need for transfusion at this time No anticoagulation for DVT prophylaxis Consult gastroenterology CHF/lower extremity edema/elevated troponin- The patient will be admitted to telemetry for serial cardiac enzymes, serial EKG's, cardiac rhythm monitoring Contributing factors including but not limited to: NSAID use, CKD, prednisone use, high-output CHF, Placed on Nitropaste to take the place of isosorbide while n.p.o. Hold torsemide Give furosemide 40 mg IV now and every morning, increase if needed depending upon response Follow serial renal function panel and magnesium levels Diabetes mellitus- Patient will be n.p.o., and therefore will not be on most of his insulin medications Placed on glargine 12 units subcu twice daily with NovoLog coverage Temporal arteritis- Patient had been on prednisone 60 mg starting in July, and had been tapered down to [address] on hydrocortisone 50 mg IV every 8 hours Admission and Anticipated Discharge Date Admission Date: January 17, 2023 History of Present Illness Chief Complaint: The patient presents to the emergency department with primary symptom of worsening generalized weakness over the past few weeks Primary Care Provider: Mariusz Bustamante MD The patient is a 77-year-old male with a past medical history including CKD, chronic anemia, hypertension, acute on chronic diastolic CHF, anxiety, asthma, diabetes mellitus, diabetic nephropathy and background retinopathy, left bundle branch block, secondary hyperparathyroidism, gastroparesis, bilateral mixed hearing loss and obesity. He has been treated for temporal arteritis since July, with initial prednisone dose of 60 mg, and is gradually been tapered to the point of being on 20 mg daily now. He has also been taking ibuprofen twice daily until discontinued 2 days ago by his PCP. He presents to the emergency department with worsening generalized weakness, with some shortness of breath. He had undergone outpatient laboratory testing which had showed decline in hemoglobin from 12.8-9.8, and presently in the ED this evening is 9.2, with heme positive stool. His is also noted worsening lower extremity edema in both legs. She reports that he does also complain of some intermittent epigastric area discomfort and bloating. He reports that his legs feel generally weak like they are going to give out and not support his weight. Allergies Allergy/AdvReac Type Severity Reaction Status Date / Time atorvastatin Allergy Intermediate MUSCLE Verified 01/14/23 11:37 ACHES exenatide Allergy Intermediate SWELLING Verified 01/14/23 11:37 metformin Allergy Intermediate KIDNEY Verified 01/14/23 11:37 DISEASE phenol Allergy Intermediate SWELLING Verified 01/14/23 11:37 pioglitazone Allergy Intermediate SWELLING Verified 01/14/23 11:37 simvastatin Allergy Intermediate MUSCLE Verified 01/14/23 11:37 ACHES ether Allergy Mild n/v Verified 01/14/23 11:37 Home Medications Medication Instructions Recorded Confirmed Type nitroglycerin 0.3 mg sublingual 0.3 mg sublingual Q5M PRN chest 07/11/20 01/16/23 Rx tablet (Nitrostat) pain #30 tabs flash glucose sensor (FreeStyle #1 ea 11/17/21 01/16/23 Rx Saleem 2 Sensor kit) levalbuterol tartrate 45 2 inh inhalation Q6H PRN shortness 05/19/22 01/16/23 Rx mcg/actuation aerosol inhaler of breath #15 grams (Xopenex HFA) alirocumab 75 mg/mL subcutaneous 75 mg subcut Q14D #1 mL 06/23/22 01/16/23 Rx pen injector (Praluent Pen) isosorbide mononitrate 30 mg 30 mg PO BID #180 tabs 07/22/22 01/16/23 Rx tablet,extended release 24 hr azelastine 137 mcg (0.1 %) nasal 2 spray intranasal BID PRN nasal 07/29/22 01/16/23 Rx spray aerosol congestion #30 mL Tresiba FlexTouch U-200 200 32 unit (0.16 mL) subcut HS 30 10/06/22 01/16/23 Rx unit/mL (3 mL) subcutaneous pen days #4.8 Boxes (insulin degludec) allopurinol 100 mg tablet 100 mg PO QAM 10/14/22 01/16/23 History aspirin 81 mg tablet,delayed 81 mg PO QAM 10/14/22 01/16/23 History release (Adult Low Dose Aspirin) fluticasone propionate 50 2 spray intranasal UD PRN 10/14/22 01/16/23 History mcg/actuation nasal Congestion spray,suspension lorazepam 0.5 mg tablet 0.5 mg PO DAILY PRN anxiety/pain 10/14/22 01/16/23 History nystatin 100,000 unit/gram topical 1 applic topical DAILY PRN Rash 10/14/22 01/16/23 History powder polyethylene glycol 3350 17 gram 17 g PO HS 10/14/22 01/16/23 History oral powder packet (Miralax) ibuprofen 200 mg-diphenhydramine 1 cap PO HS 10/16/22 01/16/23 History HCl 25 mg capsule (Advil PM Liqui-Gels) acetaminophen 500 mg tablet 1,000 mg PO TID PRN Pain 10/22/22 01/16/23 History (Tylenol Extra Strength) doxazosin 4 mg tablet (Cardura) 4 mg PO HS 10/28/22 01/16/23 History omeprazole 20 mg capsule,delayed 20 mg PO BID #180 caps 10/30/22 01/16/23 Rx release pen needle, diabetic 32 gauge x #150 ea 11/17/22 01/16/23 Rx 5/32" (BD Denia 2nd Gen Pen Needle) insulin aspart U-100 100 unit/mL 33 unit (0.33 mL) subcut TIDM #2 11/20/22 01/16/23 Rx (3 mL) subcutaneous pen (Novolog Boxes FlexPen U-100 Insulin aspart) carvedilol 25 mg tablet 12.5 mg PO BID 12/02/22 01/16/23 History insulin NPH isoph U-100 human 100 29 unit subcut QAM 12/02/22 01/16/23 History unit/mL (3 mL) subcutaneous pen (Novolin N FlexPen) Lactobacillus rhamnosus-Bifidobac. 1 cap PO QAM 12/03/22 01/16/23 History animalis 3 billion cell capsule ([employer]) dimenhydrinate 50 mg tablet 50 mg PO Q8H PRN Dizziness 12/03/22 01/16/23 History (Dramamine) guaifenesin 1,200 mg tablet, 1,200 mg PO BID 12/03/22 01/16/23 History extended release 12 hr (Mucinex) loratadine 10 mg tablet (Claritin) 10 mg PO QAM 12/03/22 01/16/23 History olmesartan 40 mg tablet 40 mg PO DAILY #90 tabs 12/22/22 01/16/23 Rx miscellaneous medical supply #2 ea 01/06/23 01/16/23 Rx (Anti-Embolism Stockings) prednisone 20 mg tablet 30 mg PO QAM 01/06/23 01/16/23 History ergocalciferol (vitamin D2) 1,250 1,250 mcg PO MONTHLY #3 caps 01/11/23 01/16/23 Rx mcg (50,000 unit) capsule mupirocin 2 % topical ointment See Rx Instructions topical BID 01/11/23 01/16/23 Rx PRN skin wound #15 grams torsemide 40 mg tablet See Rx Instructions .Route 01/14/23 01/16/23 Rx .COMPLEX #180 tabs Past Med/Surg History Medical History (Updated 01/17/23 @ 03:48 by Hiren Morocho MD) Temporal arteritis LYDNA (obstructive sleep apnea) no device Type 2 diabetes mellitus IDDM Umbilical hernia present Eye problem right/hole present in this eye for yrs/follows Dr. Mclean - 2 mon ago vessel broken & healing/recent f/u2 weeks ago and told eye is fine. History of anesthesia reaction remote hx w/ tonsillectomy/ ether : n/v. Unique anesthetic considerations on preoperative anesthesia assessment becomes anxious when lies flat/no sob. Snoring Positive colorectal cancer screening using Cologuard test seeing GI specialist after up coming procedure Gallstones present for several yrs Gastroparesis Hx of gout Hyperlipidemia Chronic rhinitis Chronic idiopathic urticaria hx Chronic kidney disease, stage 4 (severe) follows with Dr. Lance, Baseline Cr 2.4 w/ EGFR 24 cc/min Chronic diastolic congestive heart failure follows with Dr. Issa Bilateral tinnitus Sensorineural hearing loss (SNHL) of both ears Diabetic peripheral neuropathy associated with type 2 diabetes mellitus MRSA (methicillin resistant staph aureus) culture positive no known hx that is aware of Left bundle-branch block chronic Hypertension Anemia Surgical History History of tooth extraction History of myringotomy History of carpal tunnel surgery left History of surgical removal of skin lesion History of tonsillectomy Family History Father Bladder cancer Diabetes Mother Uterine cancer Breast cancer Heart disease Hypertension Denies family history of Ovarian cancer Prostate cancer Coronary heart disease Myocardial infarction Colorectal cancer Social History Smoking Status: Unknown if ever smoked Tobacco Type: Cigarettes Age Started Using Tobacco: 14; Age Quit Using Tobacco: 24; packs per day: 3; Second Hand Exposure: No; Do You Dip or Chew Tobacco: No; Hx Alcohol Use: Yes Hx Substance Use: No Preferred Language: Armenian Communication Ability: Effective Communication Ability Comment: KAW - uses hearing aides and microphone /pt does phone interview Visual Impairment: No Limitations Hearing Ability: Use of Hearing Aid Herd Tester Required: No Beliefs That Will Affect Care: None marital status: Current Living Situation: Spouse Current Living Situation Comment: [facility] and family living in basement current occupational status: retired 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[employer] How many Children do You have: 4 Feels Safe at Home: Yes Childhood Exposure to Second-Hand Smoke: No Diet: diabetic and regular caffeine: Yes during the past year weight has: decreased > 10 lbs Dental Care, Regularly: No Physical Activity Frequency: Daily Seatbelt Use: never Sunscreen Use: No Assistive Devices: Cane, Glasses and Hearing Aid - Bilateral Review of Systems Review of Systems: The patient denies chest pain, palpitations, cough, sore throat, fevers, chills, sweats, nausea, vomiting, diarrhea , constipation, blood in urine or stool, dysuria, urinary frequency or urgency, lightheadedness, dizziness, headache, memory loss, loss of consciousness, rash, abnormal bruising or bleeding, focal weakness, numbness or tingling in arms, generalized arthralgias or myalgias, back or neck pain, or night sweats. The review of systems is otherwise negative other than for that already noted above, and at least 10 systems have been reviewed. Physical Exam Physical Exam: The patient is awake, alert and oriented 3, is hard of hearing, well developed and well nourished, normocephalic and atraumatic, lying in bed and in no acute distress. HEENT--PERRL, EOMI, mucous membranes and oropharynx normal Neck--supple. No JVD. No bruits. Thyroid normal, trachea midline, no adenopathy. Heart--normal S1 and S2. No murmurs, rubs or gallops. Lungs-- crackles at the bases bilaterally. No respiratory distress, no accessory muscle use. Abdomen--normal bowel sounds and soft. Nontender. Mild epigastric discomfort. Extremities--3+ bilateral pretibial pitting edema. Chronic appearing excoriation bilateral anterior tibial surfaces Dermatologic-skin changes as noted Neurologic--cranial nerves II through XII grossly intact. Rheumatologic-Limited exam Psychiatric--normal affect. Results & Data Results & Data Vital Signs (Past 12 Hours) Vital Signs Temp Pulse Pulse Resp BP BP Pulse Ox 01/17/23 03:12 01/17/23 03:12 88 19 222/98 H 91 01/17/23 02:00 89 21 216/112 H 94 01/17/23 01:00 89 18 219/100 H 94 01/17/23 00:30 78 18 94 01/17/23 00:30 01/17/23 00:30 78 18 191/95 H 90 01/16/23 23:01 83 01/16/23 23:00 84 19 181/87 H 94 01/16/23 22:56 86 18 181/87 H 94 01/16/23 22:42 36 C L 85 19 147/62 H 95 Pulse Ox O2 Del Method O2 Del Method 01/17/23 03:12 91 Room Air 01/17/23 03:12 Room Air 01/17/23 02:00 Room Air 01/17/23 01:00 Room Air 01/17/23 00:30 Room Air 01/17/23 00:30 Room Air 01/17/23 00:30 Room Air 01/16/23 23:01 01/16/23 23:00 Room Air 01/16/23 22:56 Room Air 01/16/23 22:42 Room Air Laboratory Results Laboratory Results WBC 13.57 K/ul (4.8-10.8) H 01/16/23 23:50 RBC 2.95 M/uL (4.70-6.10) L 01/16/23 23:50 Hgb 9.2 g/dl (14.0-18.0) L 01/16/23 23:50 Hct 26.8 % (42.0-52.0) L 01/16/23 23:50 MCV 90.8 fL (80.0-100.0) 01/16/23 23:50 MCH 31.2 pg (25.0-34.0) 01/16/23 23:50 MCHC 34.3 g/dL (32.0-36.0) 01/16/23 23:50 RDW Std Deviation 49.7 fL (36.4-46.3) H 01/16/23 23:50 RDW Coeff of [place] 14.9 % (11.5-14.5) H 01/16/23 23:50 Plt Count 247 K/uL (130-400) 01/16/23 23:50 MPV 10.5 fL (9.4-12.4) 01/16/23 23:50 Immature Gran % (Auto) 4.2 % 01/16/23 23:50 Neut % (Auto) 80.6 % 01/16/23 23:50 Lymph % (Auto) 7.4 % 01/16/23 23:50 Floyd % (Auto) 4.9 % 01/16/23 23:50 Eos % (Auto) 2.6 % 01/16/23 23:50 Baso % (Auto) 0.3 % 01/16/23 23:50 Neut # (Auto) 10.93 K/uL (1.40-6.50) H 01/16/23 23:50 Lymph # (Auto) 1.01 K/uL (1.20-3.40) L 01/16/23 23:50 Floyd # (Auto) 0.67 K/uL (0.11-0.59) H 01/16/23 23:50 Eos # (Auto) 0.35 K/uL (0.00-0.50) 01/16/23 23:50 Baso # (Auto) 0.04 K/uL (0.00-0.20) 01/16/23 23:50 Immature Gran # (Auto) 0.57 K/uL (0.01-0.20) H 01/16/23 23:50 Absolute Nucleated RBC 0.03 K/uL (0.00-0.12) 01/16/23 23:50 Nucleated RBC % (auto) 0.2 % 01/16/23 23:50 PT 11.5 Seconds (9.0-12.0) 01/16/23 23:50 INR 1.1 (0.9-1.1) 01/16/23 23:50 APTT 21 Seconds (21-31) 01/16/23 23:50 PTT Ratio 0.7 01/16/23 23:50 Sodium 135 mmol/L (136-145) L 01/16/23 23:50 Potassium 4.6 mmol/L (3.5-5.1) 01/16/23 23:50 Chloride 98 mmol/L (98-107) 01/16/23 23:50 Carbon Dioxide 25 mmol/L (21-32) 01/16/23 23:50 Anion Gap 12 (3-11) H 01/16/23 23:50 BUN 122 mg/dl (6-23) H 01/16/23 23:50 Creatinine 3.04 mg/dl (0.6-1.4) H 01/16/23 23:50 Est Cr Clr Drug Dosing Not Reportable 01/16/23 23:50 Est GFR ( Amer) 21.7 ml/min 01/16/23 23:50 Est GFR (Non-Af Amer) 18.7 ml/min 01/16/23 23:50 BUN/Creatinine Ratio 40.1 (10-20) H 01/16/23 23:50 Glucose 225 mg/dl (70-99(Fasting)) H 01/16/23 23:50 Calcium 9.1 mg/dl (8.6-10.3) 01/16/23 23:50 Magnesium 2.0 mg/dl (1.7-2.4) 01/16/23 23:50 Total Bilirubin 0.6 mg/dl (0.2-1.0) 01/16/23 23:50 AST 14 U/L (13-39) 01/16/23 23:50 ALT 15 U/L (7-52) 01/16/23 23:50 Alkaline Phosphatase 73 U/L (34-104) 01/16/23 23:50 Troponin I High Sens 25.9 pg/ml (0-20) H 01/17/23 01:42 B-Natriuretic Peptide 103 pg/ml (0-100) H 01/16/23 23:50 Total Protein 6.0 gm/dl (6.0-8.3) 01/16/23 23:50 Albumin 3.0 gm/dl (3.4-5.0) L 01/16/23 23:50 Globulin 3.0 gm/dl (2.5-4.0) 01/16/23 23:50 Albumin/Globulin Ratio 1.0 (0.9-2) 01/16/23 23:50 TSH 3.025 uIu/ml (0.300-4.500) 01/16/23 23:50 Urine Color Yellow 01/17/23 01:45 Urine Appearance Clear (Clear) 01/17/23 01:45 Urine pH 6.5 (4.5-7.5) 01/17/23 01:45 Ur Specific [place] 1.013 (1.000-1.030) 01/17/23 01:45 Urine Protein 1+ (Negative) H 01/17/23 01:45 Urine Glucose (UA) Negative (Negative) 01/17/23 01:45 Urine Ketones Negative (Negative) 01/17/23 01:45 Urine Blood Negative (Negative) 01/17/23 01:45 Urine Nitrite Negative (Negative) 01/17/23 01:45 Urine Bilirubin Negative (Negative) 01/17/23 01:45 Urine Urobilinogen Negative (Negative) 01/17/23 01:45 Ur Leukocyte Esterase Negative (Negative) 01/17/23 01:45 Urine WBC (Auto) 0 /hpf (0-5) 01/17/23 01:45 Urine RBC (Auto) 0-4 /hpf (0-4) 01/17/23 01:45 U Hyaline Cast (Auto) 1-5 /lpf (0-5) 01/17/23 01:45 U Epithel Cells (Auto) 0-5 /lpf (0-5) 01/17/23 01:45 Urine Bacteria (Auto) Negative (Negative) 01/17/23 01:45 SARS-CoV-2 (PCR) NEGATIVE (Negative) 01/16/23 23:50 Influenza Type A (PCR) Negative (Neg) 01/16/23 23:50 Influenza Type B (PCR) Negative (Neg) 01/16/23 23:50 RSV (RT-PCR) Negative (Neg) 01/16/23 23:50 Blood Type O Positive 01/16/23 23:56 Antibody Screen NEGATIVE 01/16/23 23:56 Code Status & VTE Plan Code Status Full code VTE Prophylaxis Plan VTE Prophylaxis will be ordered: Yes PG Care Time/CCT Total # of Minutes Spent Total Time Spent with Patient: Total time spent is greater than 50% in coordination of care (as documented) at patient's floor/unit and/or counseling patient: Coding Level of Care Code 98170 INT INP/OBS CARE 3/75MIN Diagnoses Bilateral lower extremity edema R60.0 Acute GI bleeding K92.2 Acute kidney injury superimposed on CKD N17.9; N18.9 Acute on chronic diastolic CHF (congestive heart failure), NYHA class 3 I50.33 On corticosteroid therapy Z79.52 Temporal arteritis M31.6 Type 2 diabetes mellitus, with long-term current use of insulin E11.9; Z79.4 Background diabetic retinopathy associated with type 2 diabetes mellitus E11.3299 Diabetic nephropathy associated with type 2 diabetes mellitus E11.21 Chronic kidney disease, stage 4 (severe) N18.4 Elevated troponin R79.89 Symptomatic anemia D64.9
[2023-01-17] MEDS ORDERED: HYDROCORTISONE SOD 50 MG in SYRINGE 0 ML IV SCH (04:00)
[2023-01-17] MEDS ORDERED: NITROGLYCERIN 2% OINTMENT 30GM TUBE EXT SCH (04:30)
[2023-01-17 05:01] LABS: Basophils # (auto) 0.04 K/uL (0.00-0.20); Basophils % (auto) 0.3 %; Eosinophils # (auto) 0.38 K/uL (0.00-0.50); Eosinophils % (auto) 3.2 %; Hematocrit (blood only) 26.8 % (42.0-52.0); Hemoglobin 9.4 g/dl (14.0-18.0); Immature Granulocytes # (auto) 0.51 K/uL (0.01-0.20); Immature Granulocytes % (auto) 4.3 %; Lymphocytes # (auto) 0.94 K/uL (1.20-3.40); Lymphocytes % (auto) 7.9 %; Mean Corpuscular Hemoglobin 31.4 pg (25.0-34.0); Mean Corpuscular Hgb Conc 35.1 g/dL (32.0-36.0); Mean Corpuscular Volume 89.6 fL (80.0-100.0); Mean Platelet Volume 10.2 fL (9.4-12.4); Monocytes # (auto) 0.62 K/uL (0.11-0.59); Monocytes % (auto) 5.2 %; Neutrophils # (auto) 9.48 K/uL (1.40-6.50); Neutrophils % (auto) 79.1 %; Nucleated RBC # (auto) 0.03 K/uL (0.00-0.12); Nucleated RBC % (auto) 0.3 %; Platelet Count 257 K/uL (130-400); RDW Coefficient of Variation 14.8 % (11.5-14.5); Red Blood Count 2.99 M/uL (4.70-6.10); White Blood Count 11.97 K/ul (4.8-10.8)
[2023-01-17 05:36] LABS: Albumin Globulin Ratio 1.1 (0.9-2); Albumin Level 3.1 gm/dl (3.4-5.0); BUN Creatinine Ratio 39.9 (10-20); Bilirubin,Total 0.6 mg/dl (0.2-1.0); Calcium 9.2 mg/dl (8.6-10.3); Creatinine Clr Calc Pharmacy 26.3 ml/min; Est GFR (African American) 22.4 ml/min; Est GFR (Non-African American) 19.3 ml/min; Globulin 2.9 gm/dl (2.5-4.0); Potassium 4.5 mmol/L (3.5-5.1)
--- NOTE | 2023-01-17 07:16 | XRay Report ---
XR chest 1V portable HISTORY: 77 years-old Male weakness acute weakness COMPARISON: 10/28/2022 TECHNIQUE: AP view of the chest FINDINGS: Cardiac silhouette is enlarged. No pneumothorax, pleural effusion or overt pulmonary edema. Subsegmen kolby left basilar retrocardiac opacities suggestive of atelectasis versus scarring. Degenerative morley es of the shoulders and spine. IMPRESSION: Cardiomegaly without acute process. ACT 112: Negative or not required by law. The above report was generated using voice recognition software. It may contain grammatical, syntax o r spelling errors. Electronically signed by: Miguel Arreola M.D. 01/17/2023 7:15 AM
[2023-01-17] MEDS ORDERED: INSULIN ASPART PER UNIT CHARGE SC SCH (07:30)
--- NOTE | 2023-01-17 07:51 | Electrocardiogram Report ---
Test Reason : Blood Pressure : / mmHG Vent. Rate : 090 BPM Atrial Rate : 000 BPM P-R Int : 000 ms QRS Dur : 132 ms QT Int : 388 ms P-R-T Axes : 000 -09 144 degrees QTc Int : 474 ms Sinus rhythm with PVCs Left bundle branch block Abnormal ECG Confirmed by Mariusz Chance ([id number] on 01/17/2023 7:51:06 AM Referred By: REFERRED SELF Confirmed By:Sarkis Chance
[2023-01-17] MEDS ORDERED: LORazepam 0.5 MG TAB PO PRN (08:22)
[2023-01-17] MEDS ORDERED: DOXAZosin MESYLATE 4 MG TAB PO ONE (08:23)
[2023-01-17] MEDS ORDERED: FUROSEMIDE 40 MG/4 ML VIAL IV SCH (09:00)
[2023-01-17] MEDS ORDERED: TORSEMIDE 10 MG TAB PO SCH (09:00)
[2023-01-17] MEDS ORDERED: ISOSORBIDE MONO EXTENDED REL 30 MG TABCR PO SCH (09:00)
[2023-01-17] MEDS ORDERED: TORSEMIDE 20 MG TAB PO SCH (09:00)
[2023-01-17] MEDS ORDERED: PANTOprazole 40 MG in SYRINGE 0 ML IV SCH (09:00)
[2023-01-17] MEDS ORDERED: LOSARTAN POTASSIUM 50 MG TAB PO SCH (09:00)
[2023-01-17] MEDS ORDERED: carvediloL 12.5 MG TAB PO SCH (09:00)
[2023-01-17] MEDS ORDERED: LANTUS PER UNIT CHARGE SQ SCH (09:00)
[2023-01-17] MEDS ORDERED: LORATADINE 10 MG TAB PO SCH (09:00)
--- NOTE | 2023-01-17 09:46 | Gastrointestinal Consultation ---
Date of Consultation January 17, 2023 Assessment & Plan (1) Anemia: He has what appears to be a chronic anemia. There is no suggestion of an acute GI bleed and heme + stools do not denote acute GI bleeding. He definitely needs evaluation and with iron deficiency and positive cologuard I would be concerned about colon cancer especially in light of the fact that he has never had a colonoscopy. I offered to set these up for tomorrow but he is adamant about going home and arranging these as an outpatient. I discussed with Dr. Huffman and she will discuss with him. If he stays I will get him prepped for tomorrow. History of Present Illness Reason for Consultation: anemia Attending Physician: Ghazala Huffman MD History of Present Illness 77 year old man admitted with anemia. He has CKD and usually runs a hemoglobin above 11--it was 12.8 in November. He does admit that his stools are dark but they have been "dark for years". He has been on high dose prednisone with taper and also has been taking ibuprofen. He does not admit to ever seeing blood in his stool. The consistency and frequency of his stools have not changed. He did have a positive cologuard in July but has not arranged colonoscopy yet. He carries the diagnosis of gastroparesis but has never had an EGD. He also has never had a colonoscopy. He came to the hospital at the suggestion of his physician and claims no symptoms although he has been feeling "weak". He is adamant about going home since procedures would not be able to be done tomorrow. Allergies Allergy/AdvReac Type Severity Reaction Status Date / Time atorvastatin Allergy Intermediate MUSCLE Verified 01/14/23 11:37 ACHES exenatide Allergy Intermediate SWELLING Verified 01/14/23 11:37 metformin Allergy Intermediate KIDNEY Verified 01/14/23 11:37 DISEASE phenol Allergy Intermediate SWELLING Verified 01/14/23 11:37 pioglitazone Allergy Intermediate SWELLING Verified 01/14/23 11:37 simvastatin Allergy Intermediate MUSCLE Verified 01/14/23 11:37 ACHES ether Allergy Mild n/v Verified 01/14/23 11:37 Home Medications Medication Instructions Recorded Confirmed Type nitroglycerin 0.3 mg sublingual 0.3 mg sublingual Q5M PRN chest 07/11/20 01/16/23 Rx tablet (Nitrostat) pain #30 tabs flash glucose sensor (FreeStyle #1 ea 11/17/21 01/16/23 Rx Saleem 2 Sensor kit) levalbuterol tartrate 45 2 inh inhalation Q6H PRN shortness 05/19/22 01/16/23 Rx mcg/actuation aerosol inhaler of breath #15 grams (Xopenex HFA) alirocumab 75 mg/mL subcutaneous 75 mg subcut Q14D #1 mL 06/23/22 01/16/23 Rx pen injector (Praluent Pen) isosorbide mononitrate 30 mg 30 mg PO BID #180 tabs 07/22/22 01/16/23 Rx tablet,extended release 24 hr azelastine 137 mcg (0.1 %) nasal 2 spray intranasal BID PRN nasal 07/29/22 01/16/23 Rx spray aerosol congestion #30 mL Tresiba FlexTouch U-200 200 32 unit (0.16 mL) subcut HS 30 10/06/22 01/16/23 Rx unit/mL (3 mL) subcutaneous pen days #4.8 Boxes (insulin degludec) allopurinol 100 mg tablet 100 mg PO QAM 10/14/22 01/16/23 History aspirin 81 mg tablet,delayed 81 mg PO QAM 10/14/22 01/16/23 History release (Adult Low Dose Aspirin) fluticasone propionate 50 2 spray intranasal UD PRN 10/14/22 01/16/23 History mcg/actuation nasal Congestion spray,suspension lorazepam 0.5 mg tablet 0.5 mg PO DAILY PRN anxiety/pain 10/14/22 01/16/23 History nystatin 100,000 unit/gram topical 1 applic topical DAILY PRN Rash 10/14/22 01/16/23 History powder polyethylene glycol 3350 17 gram 17 g PO HS 10/14/22 01/16/23 History oral powder packet (Miralax) ibuprofen 200 mg-diphenhydramine 1 cap PO HS 10/16/22 01/16/23 History HCl 25 mg capsule (Advil PM Liqui-Gels) acetaminophen 500 mg tablet 1,000 mg PO TID PRN Pain 10/22/22 01/16/23 History (Tylenol Extra Strength) doxazosin 4 mg tablet (Cardura) 4 mg PO HS 10/28/22 01/16/23 History omeprazole 20 mg capsule,delayed 20 mg PO BID #180 caps 10/30/22 01/16/23 Rx release pen needle, diabetic 32 gauge x #150 ea 11/17/22 01/16/23 Rx 5/32" (BD Denia 2nd Gen Pen Needle) insulin aspart U-100 100 unit/mL 33 unit (0.33 mL) subcut TIDM #2 11/20/22 01/16/23 Rx (3 mL) subcutaneous pen (Novolog Boxes FlexPen U-100 Insulin aspart) carvedilol 25 mg tablet 12.5 mg PO BID 12/02/22 01/16/23 History insulin NPH isoph U-100 human 100 29 unit subcut QAM 12/02/22 01/16/23 History unit/mL (3 mL) subcutaneous pen (Novolin N FlexPen) Lactobacillus rhamnosus-Bifidobac. 1 cap PO QAM 12/03/22 01/16/23 History animalis 3 billion cell capsule (Innotrieve) dimenhydrinate 50 mg tablet 50 mg PO Q8H PRN Dizziness 12/03/22 01/16/23 History (Dramamine) guaifenesin 1,200 mg tablet, 1,200 mg PO BID 12/03/22 01/16/23 History extended release 12 hr (Mucinex) loratadine 10 mg tablet (Claritin) 10 mg PO QAM 12/03/22 01/16/23 History olmesartan 40 mg tablet 40 mg PO DAILY #90 tabs 12/22/22 01/16/23 Rx miscellaneous medical supply #2 ea 01/06/23 01/16/23 Rx (Anti-Embolism Stockings) prednisone 20 mg tablet 30 mg PO QAM 01/06/23 01/16/23 History ergocalciferol (vitamin D2) 1,250 1,250 mcg PO MONTHLY #3 caps 01/11/23 01/16/23 Rx mcg (50,000 unit) capsule mupirocin 2 % topical ointment See Rx Instructions topical BID 01/11/23 01/16/23 Rx PRN skin wound #15 grams torsemide 40 mg tablet See Rx Instructions .Route 01/14/23 01/16/23 Rx .COMPLEX #180 tabs Patient History Medical History Temporal arteritis LYNDA (obstructive sleep apnea) no device Type 2 diabetes mellitus IDDM Umbilical hernia present Eye problem right/hole present in this eye for yrs/follows Dr. Mclean - 2 mon ago vessel broken & healing/recent f/u2 weeks ago and told eye is fine. History of anesthesia reaction remote hx w/ tonsillectomy/ ether : n/v. Unique anesthetic considerations on preoperative anesthesia assessment becomes anxious when lies flat/no sob. Snoring Positive colorectal cancer screening using Cologuard test seeing GI specialist after up coming procedure Gallstones present for several yrs Gastroparesis Hx of gout Hyperlipidemia Chronic rhinitis Chronic idiopathic urticaria hx Chronic kidney disease, stage 4 (severe) follows with Dr. Lance, Baseline Cr 2.4 w/ EGFR 24 cc/min Chronic diastolic congestive heart failure follows with Dr. Issa Bilateral tinnitus Sensorineural hearing loss (SNHL) of both ears Diabetic peripheral neuropathy associated with type 2 diabetes mellitus MRSA (methicillin resistant staph aureus) culture positive no known hx that is aware of Left bundle-branch block chronic Hypertension Anemia Surgical History History of tooth extraction History of myringotomy History of carpal tunnel surgery left History of surgical removal of skin lesion History of tonsillectomy Family History Father Bladder cancer Diabetes Mother Uterine cancer Breast cancer Heart disease Hypertension Denies family history of Ovarian cancer Prostate cancer Coronary heart disease Myocardial infarction Colorectal cancer Social History Smoking Status: Unknown if ever smoked Tobacco Type: Cigarettes Age Started Using Tobacco: 14; Age Quit Using Tobacco: 24; packs per day: 3; Second Hand Exposure: No; Do You Dip or Chew Tobacco: No; Hx Alcohol Use: Yes Hx Substance Use: No Preferred Language: Czech Communication Ability: Effective Communication Ability Comment: KIANA - uses hearing aides and microphone /pt does phone interview Visual Impairment: No Limitations Hearing Ability: Use of Hearing Aid Dental Insurance Biller Required: No Beliefs That Will Affect Care: None marital status: Current Living Situation: Spouse Current Living Situation Comment: gradaughter and family living in basement current occupational status: retired 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[employer]) How many Children do You have: 4 Feels Safe at Home: Yes Childhood Exposure to Second-Hand Smoke: No Diet: diabetic and regular caffeine: Yes during the past year weight has: decreased > 10 lbs Dental Care, Regularly: No Physical Activity Frequency: Daily Seatbelt Use: never Sunscreen Use: No Assistive Devices: Cane, Glasses and Hearing Aid - Bilateral Review of Systems Review of Systems: All systems reviewed & are unremarkable except as noted in HPI & below Physical Exam Physical Exam: Pleasantly cantankerous but in no distress Constitutional: WD/WN, vitals as above Neck: trachea midline, no thyromegaly Respiratory: normal respiratory effort, lungs clear to auscultation Cardiovascular: RRR, no murmur, no edema Gastrointestinal (Abdomen): normal bowel sounds, soft, nontender, no hepatosplenomegaly Results & Data Vital Signs (Past 12 Hours) Vital Signs Temp Pulse Pulse Resp BP BP Pulse Ox 01/17/23 09:00 96 H 25 H 126/70 94 01/17/23 08:00 95 H 19 135/89 94 01/17/23 07:30 95 H 16 166/93 H 94 01/17/23 06:58 92 H 01/17/23 03:12 01/17/23 03:12 88 19 222/98 H 91 01/17/23 03:00 87 01/17/23 02:00 89 21 216/112 H 94 01/17/23 01:00 89 18 219/100 H 94 01/17/23 00:30 78 18 94 01/17/23 00:30 01/17/23 00:30 78 18 191/95 H 90 01/16/23 23:01 83 01/16/23 23:00 84 19 181/87 H 94 01/16/23 22:56 86 18 181/87 H 94 01/16/23 22:42 36 C L 85 19 147/62 H 95 Pulse Ox O2 Del Method O2 Del Method 01/17/23 09:00 Room Air 01/17/23 08:00 Room Air 01/17/23 07:30 Room Air 01/17/23 06:58 01/17/23 03:12 91 Room Air 01/17/23 03:12 Room Air 01/17/23 03:00 01/17/23 02:00 Room Air 01/17/23 01:00 Room Air 01/17/23 00:30 Room Air 01/17/23 00:30 Room Air 01/17/23 00:30 Room Air 01/16/23 23:01 01/16/23 23:00 Room Air 01/16/23 22:56 Room Air 01/16/23 22:42 Room Air Laboratory Results 01/17/23 01/17/23 01/17/23 Range/Units 04:42 01:45 01:42 WBC 11.97 H (4.8-10.8) K/ul RBC 2.99 L (4.70-6.10) M/uL Hgb 9.4 L (14.0-18.0) g/dl Hct 26.8 L (42.0-52.0) % MCV 89.6 (80.0-100.0) fL MCH 31.4 (25.0-34.0) pg MCHC 35.1 (32.0-36.0) g/dL RDW Std Deviation 48.0 H (36.4-46.3) fL RDW Coeff of [place] 14.8 H (11.5-14.5) % Plt Count 257 (130-400) K/uL MPV 10.2 (9.4-12.4) fL Immature Gran % (Auto) 4.3 % Neut % (Auto) 79.1 % Lymph % (Auto) 7.9 % [place] % (Auto) 5.2 % Eos % (Auto) 3.2 % Baso % (Auto) 0.3 % Neut # (Auto) 9.48 H (1.40-6.50) K/uL Lymph # (Auto) 0.94 L (1.20-3.40) K/uL [place] # (Auto) 0.62 H (0.11-0.59) K/uL Eos # (Auto) 0.38 (0.00-0.50) K/uL Baso # (Auto) 0.04 (0.00-0.20) K/uL Immature Gran # (Auto) 0.51 H (0.01-0.20) K/uL Absolute Nucleated RBC 0.03 (0.00-0.12) K/uL Nucleated RBC % (auto) 0.3 % PT (9.0-12.0) Seconds INR (0.9-1.1) APTT (21-31) Seconds PTT Ratio Sodium 136 (136-145) mmol/L Potassium 4.5 (3.5-5.1) mmol/L Chloride 99 (98-107) mmol/L Carbon Dioxide 27 (21-32) mmol/L Anion Gap 10 (3-11) BUN 118 H (6-23) mg/dl Creatinine 2.96 H (0.6-1.4) mg/dl Est Cr Clr Drug Dosing 26.3 Est GFR ( Amer) 22.4 ml/min Est GFR (Non-Af Amer) 19.3 ml/min BUN/Creatinine Ratio 39.9 H (10-20) Glucose 171 H (70-99(Fasting)) mg/dl Calcium 9.2 (8.6-10.3) mg/dl Magnesium (1.7-2.4) mg/dl Total Bilirubin 0.6 (0.2-1.0) mg/dl AST 12 L (13-39) U/L ALT 14 (7-52) U/L Alkaline Phosphatase 71 (34-104) U/L Troponin I High Sens 25.9 H (0-20) pg/ml B-Natriuretic Peptide (0-100) pg/ml Total Protein 6.0 (6.0-8.3) gm/dl Albumin 3.1 L (3.4-5.0) gm/dl Globulin 2.9 (2.5-4.0) gm/dl Albumin/Globulin Ratio 1.1 (0.9-2) TSH (0.300-4.500) uIu/ml Urine Color Yellow Urine Appearance Clear (Clear) Urine pH 6.5 (4.5-7.5) Ur Specific [place]onda 1.013 (1.000-1.030) Urine Protein 1+ H (Negative) Urine Glucose (UA) Negative (Negative) Urine Ketones Negative (Negative) Urine Blood Negative (Negative) Urine Nitrite Negative (Negative) Urine Bilirubin Negative (Negative) Urine Urobilinogen Negative (Negative) Ur Leukocyte Esterase Negative (Negative) Urine WBC (Auto) 0 (0-5) /hpf Urine RBC (Auto) 0-4 (0-4) /hpf U Hyaline Cast (Auto) 1-5 (0-5) /lpf U Epithel Cells (Auto) 0-5 (0-5) /lpf Urine Bacteria (Auto) Negative (Negative) SARS-CoV-2 (PCR) (Negative) Influenza Type A (PCR) (Neg) Influenza Type B (PCR) (Neg) RSV (RT-PCR) (Neg) Blood Type Antibody Screen 01/16/23 01/16/23 Range/Units 23:56 23:50 WBC 13.57 H (4.8-10.8) K/ul RBC 2.95 L (4.70-6.10) M/uL Hgb 9.2 L (14.0-18.0) g/dl Hct 26.8 L (42.0-52.0) % MCV 90.8 (80.0-100.0) fL MCH 31.2 (25.0-34.0) pg MCHC 34.3 (32.0-36.0) g/dL RDW Std Deviation 49.7 H (36.4-46.3) fL RDW Coeff of [place] 14.9 H (11.5-14.5) % Plt Count 247 (130-400) K/uL MPV 10.5 (9.4-12.4) fL Immature Gran % (Auto) 4.2 % Neut % (Auto) 80.6 % Lymph % (Auto) 7.4 % [place] % (Auto) 4.9 % Eos % (Auto) 2.6 % Baso % (Auto) 0.3 % Neut # (Auto) 10.93 H (1.40-6.50) K/uL Lymph # (Auto) 1.01 L (1.20-3.40) K/uL [place] # (Auto) 0.67 H (0.11-0.59) K/uL Eos # (Auto) 0.35 (0.00-0.50) K/uL Baso # (Auto) 0.04 (0.00-0.20) K/uL Immature Gran # (Auto) 0.57 H (0.01-0.20) K/uL Absolute Nucleated RBC 0.03 (0.00-0.12) K/uL Nucleated RBC % (auto) 0.2 % PT 11.5 (9.0-12.0) Seconds INR 1.1 (0.9-1.1) APTT 21 (21-31) Seconds PTT Ratio 0.7 Sodium 135 L (136-145) mmol/L Potassium 4.6 (3.5-5.1) mmol/L Chloride 98 (98-107) mmol/L Carbon Dioxide 25 (21-32) mmol/L Anion Gap 12 H (3-11) BUN 122 H (6-23) mg/dl Creatinine 3.04 H (0.6-1.4) mg/dl Est Cr Clr Drug Dosing Not Reportable Est GFR ( Amer) 21.7 ml/min Est GFR (Non-Af Amer) 18.7 ml/min BUN/Creatinine Ratio 40.1 H (10-20) Glucose 225 H (70-99(Fasting)) mg/dl Calcium 9.1 (8.6-10.3) mg/dl Magnesium 2.0 (1.7-2.4) mg/dl Total Bilirubin 0.6 (0.2-1.0) mg/dl AST 14 (13-39) U/L ALT 15 (7-52) U/L Alkaline Phosphatase 73 (34-104) U/L Troponin I High Sens 26.1 H (0-20) pg/ml B-Natriuretic Peptide 103 H (0-100) pg/ml Total Protein 6.0 (6.0-8.3) gm/dl Albumin 3.0 L (3.4-5.0) gm/dl Globulin 3.0 (2.5-4.0) gm/dl Albumin/Globulin Ratio 1.0 (0.9-2) TSH 3.025 (0.300-4.500) uIu/ml Urine Color Urine Appearance (Clear) Urine pH (4.5-7.5) Ur Specific [place]onda (1.000-1.030) Urine Protein (Negative) Urine Glucose (UA) (Negative) Urine Ketones (Negative) Urine Blood (Negative) Urine Nitrite (Negative) Urine Bilirubin (Negative) Urine Urobilinogen (Negative) Ur Leukocyte Esterase (Negative) Urine WBC (Auto) (0-5) /hpf Urine RBC (Auto) (0-4) /hpf U Hyaline Cast (Auto) (0-5) /lpf U Epithel Cells (Auto) (0-5) /lpf Urine Bacteria (Auto) (Negative) SARS-CoV-2 (PCR) NEGATIVE (Negative) Influenza Type A (PCR) Negative (Neg) Influenza Type B (PCR) Negative (Neg) RSV (RT-PCR) Negative (Neg) Blood Type O Positive Antibody Screen NEGATIVE Diagnostic Findings Chest X-Ray 01/16/23 23:00 XR chest 1V portable HISTORY: 77 years-old Male weakness acute weakness COMPARISON: 10/28/2022 TECHNIQUE: AP view of the chest FINDINGS: Cardiac silhouette is enlarged. No pneumothorax, pleural effusion or overt pulmonary edema. Subsegmental left basilar retrocardiac opacities suggestive of atelectasis versus scarring. Degenerative changes of the shoulders and spine. IMPRESSION: Cardiomegaly without acute process. ACT 112: Negative or not required by law. The above report was generated using voice recognition software. It may contain grammatical, syntax or spelling errors. Electronically signed by: Miguel Arreola M.D. 01/17/2023 7:15 AM (1) Anemia Anemia type: unspecified type Qualified Code(s): D64.9 - Anemia, unspecified
--- NOTE | 2023-01-17 11:34 | Discharge Summary ---
Discharge Summary Date of Service January 17, 2023 Notes For Next Care Provider Needs EGD/Colonoscopy done as outpt [facility] Follow CBC, BMP within 1 week as outpatient Medication Changes From Visit Stop ibuprofen, Aleve Prednisone is now tapered to 20mg po daily Admission HPI Per Admitting Provider The patient is a 77-year-old male with a past medical history including CKD, chronic anemia, hypertension, acute on chronic diastolic CHF, anxiety, asthma, diabetes mellitus, diabetic nephropathy and background retinopathy, left bundle branch block, secondary hyperparathyroidism, gastroparesis, bilateral mixed hearing loss and obesity. He has been treated for temporal arteritis since July, with initial prednisone dose of 60 mg, and is gradually been tapered to the point of being on 20 mg daily now. He has also been taking ibuprofen twice daily until discontinued 2 days ago by his PCP. He presents to the emergency department with worsening generalized weakness, with some shortness of breath. He had undergone outpatient laboratory testing which had showed decline in hemoglobin from 12.8-9.8, and presently in the ED this evening is 9.2, with heme positive stool. His is also noted worsening lower extremity edema in both legs. She reports that he does also complain of some intermittent epigastric area discomfort and bloating. He reports that his legs feel generally weak like they are going to give out and not support his weight. Principal Dx & Hospital Course #1 = Principal Diagnosis (1) Acute GI bleeding: Symptomatic anemia/acute GI bleeding- Likely associated with chronic steroid use since July, and use of ibuprofen and/or Aleve twice daily. Ibuprofen was discontinued 2 days LANDSCAPE ARCHITECT Hemoglobin has decreased from 12.8 on 11/27/2019 3-9.2 here and remained stable over 24 hrs at 9.4 indicating this is not an acute GI bleed Hemoccult stools are noted to be "positive" but when I click on the balloon next to the result, it states the result is "invalid." Two other hemoccults are negastive--REGARDLESS, he had a positive Cologuard test in July 2022, hgb steadily dropping over last 2 months, and has been on steroids and NSAIDs so high risk for colon CA and/or gastritis or PUD. He denies any indigestion or reflux symptoms. Says his stool is always dark in color. Seen by GI and declines to stay until Wednesday for EGD/colonoscopy. Prefers to go home. He is certainly hemodynamically stable (in fact, was hypertensive due to anxiety and refused to take the hospital's medicines for his BP). He is stable to go home and have scopes as outpatient and says he will do this although his states she does not think he will ever actually come back in to have them done. -dc NSAIDs, continue baby ASA due to h/o presumed CAD as per Cardiology notes -weaning down prednieon -remain on PPI bid -plan for outpt EGD/colonoscopy (2) Symptomatic anemia: as above follow CBC as outpt within 1 week, f/u GI (3) Bilateral lower extremity edema: With a h/o chronic HFpEF. With recently worsening LE edema, RUIZ. Likely with fluid retention from chronic prednisone use over last few months He was given IV lasix here in ER x 1 dose and can continue on his usual torsemide dose Hi BUN is quite elevated but this is likely due to prednisone use as well as high doses of diuretics. 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 I do not think the elevated BUN is from acute upper GI bleed COuld use compression stockings and elevate legs at home as well low sodium diet encouraged (4) On corticosteroid therapy: for GCA presumed weaning off, follows with Rheum (5) Temporal arteritis: as above (6) Type 2 diabetes mellitus, with long-term current use of insulin: continue home meds (7) Chronic kidney disease, stage 4 (severe): check embosser at baseline, f/u with Neprho and follow BMP AVOID NSAIDs discussed (8) Elevated troponin: trop very minimally elevated at 26 and then 25 on repeat. No CP, no ischemic changes on ECG-has chronic LBBB Likely from demand ischemia from acute on chornic HFpEF in setting of CKD stage 4 no further eval needed (9) Pressure injury, stage 2: Pt noted ot have a 1.5 x 1 cm open superficial pressure wound on right buttocks superiorly without much drainage and no surrounding erythema. reports it has been there fo rmonths and she has been applying topical creams but it won't close. He has been very sedentary the last few months. He has an appt with [facility] in 2 days Plan Dispo-discussed all care with patient extensively for 45 min with at bedside. He absolutely refuses to remain in hospital any longer for GI procedures to be expedited. I do not htink he is bleeding acutely and is stable for discharge to home. STOP ALL NSAID use as discussed, remain on po PPI bid. Sent message to Dr. Ramos to arrange outpt EGD/colonoscopy which pt is agreeable to. Of note, did report that patient mentioned that he can understand why his own father committed suicide after finding out he had bladder CA. had concerns that pt could become suicidal if he thinks he could have colon CA. I addressed this issue with patient-he reports he definitely is not suicidal and would not ever do that because as he jokes "I can't afford to" citing he does not have a life insurance policy for his family from which to benefit. He was given reassurance that he may not have cancer and thie anemia could be from gastritis or PUD from NSAID and steroid use. He has no thoughts of or plans for suicide and contracts for safety verbally that if he did start feeling depressed, he would tell someone about it. Stable for dc to home with close follow up Discharge Exam Constitutional WD/WN, vitals as above Respiratory normal respiratory effort, lungs clear to auscultation Cardiovascular Rate/Rhythm: regular rate and regular rhythm Heart Sounds: no murmur Extremities: + edema (1+ pitting edema legs bilat) Gastrointestinal (Abdomen) normal bowel sounds, soft, nontender, no hepatosplenomegaly Skin legs with chronic venous stasis changes bilat righ tsuperior buttocks wound 1.5 cm stage 2, open, minimal drainage and no surrounding erythema Psychiatric Orientation: alert and oriented x 3 Updated Medication List Medication Instructions Recorded Confirmed Type nitroglycerin 0.3 mg sublingual 0.3 mg sublingual Q5M PRN chest 07/11/20 01/19/23 Rx tablet (Nitrostat) pain #30 tabs flash glucose sensor (FreeStyle #1 ea 11/17/21 01/19/23 Rx Saleem 2 Sensor kit) levalbuterol tartrate 45 2 inh inhalation Q6H PRN shortness 05/19/22 01/19/23 Rx mcg/actuation aerosol inhaler of breath #15 grams (Xopenex HFA) alirocumab 75 mg/mL subcutaneous 75 mg subcut Q14D #1 mL 06/23/22 01/19/23 Rx pen injector (Praluent Pen) isosorbide mononitrate 30 mg 30 mg PO BID #180 tabs 07/22/22 01/19/23 Rx tablet,extended release 24 hr azelastine 137 mcg (0.1 %) nasal 2 spray intranasal BID PRN nasal 07/29/22 01/19/23 Rx spray aerosol congestion #30 mL Tresiba FlexTouch U-200 200 32 unit (0.16 mL) subcut HS 30 10/06/22 01/19/23 Rx unit/mL (3 mL) subcutaneous pen days #4.8 Boxes (insulin degludec) allopurinol 100 mg tablet 100 mg PO QAM 10/14/22 01/19/23 History aspirin 81 mg tablet,delayed 81 mg PO QAM 10/14/22 01/19/23 History release (Adult Low Dose Aspirin) fluticasone propionate 50 2 spray intranasal UD PRN 10/14/22 01/19/23 History mcg/actuation nasal Congestion spray,suspension lorazepam 0.5 mg tablet 0.5 mg PO DAILY PRN anxiety/pain 10/14/22 01/19/23 History nystatin 100,000 unit/gram topical 1 applic topical DAILY PRN Rash 10/14/22 01/19/23 History powder polyethylene glycol 3350 17 gram 17 g PO HS 10/14/22 01/19/23 History oral powder packet (Miralax) acetaminophen 500 mg tablet 1,000 mg PO TID PRN Pain 10/22/22 01/19/23 History (Tylenol Extra Strength) doxazosin 4 mg tablet (Cardura) 4 mg PO HS 10/28/22 01/19/23 History omeprazole 20 mg capsule,delayed 20 mg PO BID #180 caps 10/30/22 01/19/23 Rx release pen needle, diabetic 32 gauge x #150 ea 11/17/22 01/19/23 Rx 5/32" (BD Denia 2nd Gen Pen Needle) insulin aspart U-100 100 unit/mL 33 unit (0.33 mL) subcut TIDM #2 11/20/22 01/19/23 Rx (3 mL) subcutaneous pen (Novolog Boxes FlexPen U-100 Insulin aspart) carvedilol 25 mg tablet 12.5 mg PO BID 12/02/22 01/19/23 History Lactobacillus rhamnosus-Bifidobac. 1 cap PO QAM 12/03/22 01/19/23 History animalis 3 billion cell capsule (TradeGig) dimenhydrinate 50 mg tablet 50 mg PO Q8H PRN Dizziness 12/03/22 01/19/23 History (Dramamine) guaifenesin 1,200 mg tablet, 1,200 mg PO BID 12/03/22 01/19/23 History extended release 12 hr (Mucinex) loratadine 10 mg tablet (Claritin) 10 mg PO QAM 12/03/22 01/19/23 History olmesartan 40 mg tablet 40 mg PO DAILY #90 tabs 12/22/22 01/19/23 Rx miscellaneous medical supply #2 ea 01/06/23 01/19/23 Rx (Anti-Embolism Stockings) ergocalciferol (vitamin D2) 1,250 1,250 mcg PO MONTHLY #3 caps 01/11/23 01/19/23 Rx mcg (50,000 unit) capsule mupirocin 2 % topical ointment See Rx Instructions topical BID 01/11/23 01/19/23 Rx PRN skin wound #15 grams prednisone 20 mg tablet 20 mg PO QAM #30 tabs 01/17/23 01/19/23 Rx torsemide 40 mg tablet See Rx Instructions .Route 01/18/23 01/19/23 Rx .COMPLEX #135 tabs insulin NPH isoph U-100 human 100 14 unit subcut QAM 01/19/23 01/19/23 History unit/mL (3 mL) subcutaneous pen (Novolin N FlexPen) peg 3350-electrolytes 236 240 ml PO Q10M #4,000 mL 01/19/23 01/19/23 Rx gram-22.74 gram-6.74 gram-5.86 gram solution (Golytely) Hospital Stay Data Consultations 01/17/23 00:41 ED Decision to Admit Stat 01/17/23 02:39 Consult Gastroenterology Routine Pending Results Patient Have Any Pending Studies at Discharge: No Discharge Instructions Given to Patient (Per Discharging Provider) You were admitted with anemia and worsening shortness of breath and fatigue. The anemia could be causing the symptoms. The shortness of breath and swelling in the legs could be from your ongoing prednisone use causing fluid retention. Please continue to follow the instructions of the CHF clinic as far as your diuretic dosing goes. Your anemia could be from a very slow bleed in either the stomach or the in testine. Your blood count did not change in the time that you are in the hospital so it is unlikely that you are having a heavy amount of bleeding. It is recommended that you undergo an upper and lower endoscopy with gastroenterology to find any potential source of bleeding. This will be arranged for you as an outpatient. If you develop any bright red blood or black tarry frequent stools in the meantime or vomit blood, please return to the hospital right away. You should stop taking Aleve and all NSAIDs such as ibuprofen, Advil, Motrin, etc. as these can cause ulcers in the stomach that can bleed. You should continue on your baby aspirin daily because of your history of heart disease to prevent heart attack. Please remain on your omeprazole twice daily to protect the stomach lining from ulcers. Your primary care provider can follow your blood count also within 1 week to make sure your blood count is staying stable. Total Time Total Time Spent Total Time Spent (In Minutes): 60 min Coding Level of Care Code 81266 INP/OBS DISCH >30 MIN Diagnoses Acute GI bleeding K92.2 Symptomatic anemia D64.9 Bilateral lower extremity edema R60.0 On corticosteroid therapy Z79.52 Temporal arteritis M31.6 Type 2 diabetes mellitus, with long-term current use of insulin E11.9; Z79.4 Chronic kidney disease, stage 4 (severe) N18.4 Elevated troponin R79.89 Pressure injury, stage 2 L89.92
[2023-01-17] MEDS ORDERED: DOXAZosin MESYLATE 4 MG TAB PO SCH (21:00)
[2023-01-18] MEDS ORDERED: predniSONE 10 MG TABLET PO SCH (09:00)
[2023-01-18] MEDS ORDERED: predniSONE 20 MG TAB PO SCH (09:00)
== END 2023-01-17 12:00 | disposition home or self-care (01) | DRG 811 ==
LOC: ED 22:41 → INTOOBSV 01-17 01:38 → EDINP 01-17 01:38 → SUATTDRO 01-17 01:38 → EDINP 01-17 02:40

== ENCOUNTER 2023-02-02 12:29 | Inpatient (IN) ==
[2023-02-02] MEDS ORDERED: SODIUM CHLORIDE 0.9% 1,000 ML IV STA (13:02)
--- NOTE | 2023-02-02 13:12 | Emergency Department Note ---
Impression & Plan Cellulitis ADMIT ED Provider Note HPI: History obtained from patient and at bedside. The patient is a 78-year-old gentleman with history of iron deficiency anemia, who presents the emergency department with chief complaint of worsening generalized weakness and dyspnea on exertion over about the past 7 days. Patient's states that the patient had a colonoscopy performed on 01/27 as well as a EGD. These were generally unremarkable without obvious sources for potential anemia, she states that ever since he took the bowel prep the night before he is seem to be weak and this has been getting progressively worse ever since. Patient's most recent hemoglobin was 8.5 and given his generalized weakness and worsening dyspnea the patient and his had concern for symptomatic anemia and therefore brought him to the ED to be assessed. On my initial assessment here in the ED the patient is somewhat listless appearing however he is hemodynamically stable. He denies any blood per rectum, denies any hematemesis, denies any chest pain, patient states he does get easily fatigued with minimal exertion, states he generally just feels weak and has limited energy. Patient is hemodynamically stable on arrival and he is saturating well on room air. ROS: - Per HPI Differential Diagnosis: Symptomatic anemia, GI bleed, iron deficiency, urinary tract infection, pneumonia, cellulitis, CHF exacerbation, amongst other potential pathologies. *Outpatient medications and allergy history reviewed. PE: General: Alert, frail-appearing, no acute distress HEENT: Normocephalic, trachea midline Eyes: Extraocular eye movement is intact, no scleral erythema Pulmonary: Clear to auscultation bilaterally, no wheezing Cardio: Regular rate and rhythm GI: Abdomen is soft to palpation : No suprapubic tenderness MSK: No evidence of trauma or malformation of the extremities, 2+ edema bilateral lower extremities with venous stasis changes and surrounding erythema to the right lower extremity Skin: No evidence of rash Neuro: Alert, no focal deficits Psychiatric: Cooperative INDEPENDENT INTERPRETATIONS: quality assurance monitor: (As interpreted by myself): - An order was placed for continuous cardiac monitoring - Patient was noted to be in sinus rhythm with a rate of 85 EKG: (As interpreted by myself): Rate: 82 Rhythm: Sinus rhythm with underlying left bundle branch block (known) Intervals: QRS 142 ms, otherwise within normal limits ST changes: No ST elevation Time: 1238 Chest x-ray: (As interpreted by myself): -No focal infiltrate Interventions provided in ED: -IV fluid bolus, IV cefepime Medical Decision Making: IV was established and lab work obtained, patient was placed on front desk monitor. Lab work shows a significant leukocytosis of 21.4, hemoglobin is 8.1 which is down trended steadily but overall stable in comparison to 8.95 days ago, patient did recently have a colonoscopy and EGD that did not reveal any obvious source of bleeding. Anemia does appear to be normocytic. Patient does have history of iron deficiency. Platelet count is within normal limits, CMP shows a mild hyponatremia 133, chronic disease with creatinine near baseline at 3.62, BUN is elevated at 171, patient was given IV fluids here in the ED, procalcitonin is elevated at 0.62. No obvious pneumonia is noted on the patient's chest x-ray per my interpretation, urine sample does not show any evidence of infection. Viral panel testing is negative. Unclear source for the patient's significant leukocytosis and elevated procalcitonin at this time, patient does have some venous stasis changes with surrounding erythema to the right lower extremity and therefore this could possibly represent a cellulitis. Patient was given a dose of IV cefepime after blood cultures were obtained here in the ED. Given the patient's multiple comorbidities, lab work, and overall frailty I think he would benefit from admission with IV antibiotics. Patient's at the bedside is in agreement as is the patient. Case was discussed with the on-call midlevel provider for the [facility] hospitalist service, Abe Rodriguez PA-C, and the patient was placed for admission in stable condition. Consultants/Discussions held with other healthcare providers: -Hospitalist service, Dr. Morocho / Abe Rodriguez PA-C Disposition discussion held by myself with: -Patient and at bedside Diagnosis: 1. Generalized weakness, acute 2. Dyspnea, acute, nonspecific 3. Cellulitis of right lower extremity, acute 4. Leukocytosis, acute 5. Elevated procalcitonin, acute Disposition: Admission Reese Delarosa DO Emergency Medicine Past Med/Surg History Medical History (Updated 02/02/23 @ 18:06 by Reese Delarosa DO) Arthritis Wound of back currently seeing wound care for small wound on lower back/top of buttocks, next visit w/wound dr will be on 01/26/23 Weakness generalized currently trying to get in home therapy Temporal arteritis LYNDA (obstructive sleep apnea) no device Type 2 diabetes mellitus IDDM Umbilical hernia present Eye problem right/hole present in this eye for yrs/follows Dr. Mclean - 2 mon ago vessel broken & healing/recent f/u2 weeks ago and told eye is fine. History of anesthesia reaction age 2 w/ tonsillectomy/ ether : n/v. Unique anesthetic considerations on preoperative anesthesia assessment becomes anxious when lies flat/worries he will be short of breath Snoring Positive colorectal cancer screening using Cologuard test seeing GI specialist after up coming procedure Gallstones present for several yrs Gastroparesis Hx of gout Hyperlipidemia Chronic rhinitis Chronic idiopathic urticaria hx Chronic kidney disease, stage 4 (severe) follows with Dr. Lance, Baseline Cr 2.4 w/ EGFR 24 cc/min Chronic diastolic congestive heart failure follows with Dr. Issa Bilateral tinnitus Sensorineural hearing loss (SNHL) of both ears wears hearing aids both ears Diabetic peripheral neuropathy associated with type 2 diabetes mellitus MRSA (methicillin resistant staph aureus) culture positive no known hx that is aware of Left bundle-branch block chronic Hypertension Anemia Surgical History (Updated 01/22/23 @ 00:08 by Andre Rosenbaum) History of tooth extraction History of myringotomy History of carpal tunnel surgery left History of surgical removal of skin lesion History of tonsillectomy Family History Father Bladder cancer Diabetes Mother Uterine cancer Breast cancer Heart disease Hypertension Denies family history of Ovarian cancer Prostate cancer Coronary heart disease Myocardial infarction Colorectal cancer Social History (Updated 01/19/23 @ 10:46 by Mary Lou Johnson RN) Smoking Status: Former smoker Tobacco Type: Cigarettes Age Started Using Tobacco: 14; Age Quit Using Tobacco: 24; packs per day: 3; Second Hand Exposure: No; Do You Dip or Chew Tobacco: No; Hx Alcohol Use: Yes (none for last 30 years, not a heavy drinker) Hx Substance Use: No Preferred Language: Wolof Communication Ability: Effective Communication Ability Comment: SAMISH - uses hearing aides and microphone /pt does phone interview Visual Impairment: Limited Hearing Ability: Use of Hearing Aid Dock Coordinator Required: No Beliefs That Will Affect Care: None marital status: Current Living Situation: Spouse and Family Current Living Situation Comment: gradaughter and family living in basement current occupational status: retired 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 Feels Safe at Home: Yes Childhood Exposure to Second-Hand Smoke: No Diet: diabetic and regular caffeine: Yes during the past year weight has: decreased > 10 lbs Dental Care, Regularly: No Physical Activity Frequency: Daily Seatbelt Use: never Sunscreen Use: No Assistive Devices: Cane, Denture - Upper, Glasses, Hearing Aid - Bilateral, Walker and Wheelchair Allergies Allergies Allergy/AdvReac Type Severity Reaction Status Date / Time atorvastatin Allergy Intermediate MUSCLE Verified 01/29/23 09:03 ACHES exenatide Allergy Intermediate SWELLING Verified 01/29/23 09:03 metformin Allergy Intermediate KIDNEY Verified 01/29/23 09:03 DISEASE phenol Allergy Intermediate SWELLING Verified 01/29/23 09:03 pioglitazone Allergy Intermediate SWELLING Verified 01/29/23 09:03 simvastatin Allergy Intermediate MUSCLE Verified 01/29/23 09:03 ACHES ether Allergy Mild n/v Verified 01/29/23 09:03 Home Meds Home Medications Medication Instructions Recorded Confirmed allopurinol 100 mg tablet 100 mg PO QAM 10/14/22 01/29/23 aspirin 81 mg tablet,delayed 81 mg PO QAM 10/14/22 01/29/23 release (Adult Low Dose Aspirin) fluticasone propionate 50 2 spray intranasal UD PRN 10/14/22 01/29/23 mcg/actuation nasal Congestion spray,suspension lorazepam 0.5 mg tablet 0.5 mg PO DAILY PRN anxiety/pain 10/14/22 01/29/23 nystatin 100,000 unit/gram topical 1 applic topical DAILY PRN Rash 10/14/22 01/29/23 powder polyethylene glycol 3350 17 gram 17 g PO HS 10/14/22 01/29/23 oral powder packet (Miralax) acetaminophen 500 mg tablet 1,000 mg PO TID PRN Pain 10/22/22 01/29/23 (Tylenol Extra Strength) doxazosin 4 mg tablet (Cardura) 4 mg PO HS 10/28/22 01/29/23 Lactobacillus rhamnosus-Bifidobac. 1 cap PO QAM 12/03/22 01/29/23 animalis 3 billion cell capsule (Del Taco) carvedilol 12.5 mg tablet 12.5 mg PO BID 01/20/23 01/29/23 ergocalciferol (vitamin D2) 1,250 1,250 mcg PO Q30D 01/20/23 01/29/23 mcg (50,000 unit) capsule nystatin 100,000 unit/mL oral 5 ml PO UD 01/20/23 01/29/23 suspension olmesartan 40 mg tablet 40 mg PO QAM 01/20/23 01/29/23 torsemide 40 mg tablet 40 mg PO UD 01/20/23 01/29/23 insulin NPH isoph U-100 human 100 12 unit subcut QAM 01/29/23 01/29/23 unit/mL (3 mL) subcutaneous pen (Novolin N FlexPen) prednisone 20 mg tablet 15 mg PO QAM 01/29/23 Previous Rx's Medication Instructions Recorded nitroglycerin 0.3 mg sublingual 0.3 mg sublingual Q5M PRN chest 07/11/20 tablet (Nitrostat) pain #30 tabs flash glucose sensor (FreeStyle #1 ea 11/17/21 Saleem 2 Sensor kit) levalbuterol tartrate 45 2 inh inhalation Q6H PRN shortness 05/19/22 mcg/actuation aerosol inhaler of breath #15 grams (Xopenex HFA) alirocumab 75 mg/mL subcutaneous 75 mg subcut Q14D #1 mL 06/23/22 pen injector (Praluent Pen) isosorbide mononitrate 30 mg 30 mg PO BID #180 tabs 07/22/22 tablet,extended release 24 hr azelastine 137 mcg (0.1 %) nasal 2 spray intranasal BID PRN nasal 07/29/22 spray aerosol congestion #30 mL Tresiba FlexTouch U-200 200 32 unit (0.16 mL) subcut HS 30 10/06/22 unit/mL (3 mL) subcutaneous pen days #4.8 Boxes (insulin degludec) omeprazole 20 mg capsule,delayed 20 mg PO BID #180 caps 10/30/22 release pen needle, diabetic 32 gauge x #150 ea 11/17/22 5/32" (BD Denia 2nd Gen Pen Needle) insulin aspart U-100 100 unit/mL 33 unit (0.33 mL) subcut TIDM #2 11/20/22 (3 mL) subcutaneous pen (Novolog Boxes FlexPen U-100 Insulin aspart) miscellaneous medical supply #2 ea 01/06/23 (Anti-Embolism Stockings) mupirocin 2 % topical ointment See Rx Instructions topical BID 01/11/23 PRN skin wound #15 grams Results & Data (ED) Vital Signs Vital Signs - 24 hr 02/02/23 12:46 02/02/23 12:53 02/02/23 13:22 Temperature 36.8 C 36.8 C Temperature Source Oral Oral Pulse Rate 100 H 78 Pulse Rate [Apical] 80 Pulse Rhythm Regular Pulse Rhythm [Apical] Regular Pulse Strength Normal Pulse Strength [Apical] Normal Respiratory Rate 18 17 Respiratory Effort / Characteristics Non-Labored Spontaneous Non-Labored Spontaneous Respiratory Depth Normal Normal Respiratory Pattern Regular Regular Blood Pressure 125/93 Blood Pressure [Left Arm] 125/93 Blood Pressure Mean 103 Blood Pressure Mean [Left Arm] 103 Pulse Oximetry 100 100 Oxygen Delivery Method Room Air Room Air Sepsis Recent Fever Within 48 Hours No Sepsis New/Unexplained Change in Mental Status No Sepsis Action Taken by Nursing No Action Required 02/02/23 13:40 02/02/23 17:19 Temperature Temperature Source Pulse Rate 81 Pulse Rate [Apical] Pulse Rhythm Pulse Rhythm [Apical] Pulse Strength Pulse Strength [Apical] Respiratory Rate Respiratory Effort / Characteristics Respiratory Depth Respiratory Pattern Blood Pressure Blood Pressure [Left Arm] Blood Pressure Mean Blood Pressure Mean [Left Arm] Pulse Oximetry 96 Oxygen Delivery Method Room Air Sepsis Recent Fever Within 48 Hours Sepsis New/Unexplained Change in Mental Status Sepsis Action Taken by Nursing Laboratory Data 02/02/23 12:45 02/02/23 12:45 Lab Results 02/02/23 02/02/23 02/02/23 Range/Units 12:45 14:49 Unknown WBC 21.44 H (4.8-10.8) K/ul RBC 2.56 L (4.70-6.10) M/uL Hgb 8.1 L (14.0-18.0) g/dl Hct 23.7 L (42.0-52.0) % MCV 92.6 (80.0-100.0) fL MCH 31.6 (25.0-34.0) pg MCHC 34.2 (32.0-36.0) g/dL RDW Std Deviation 54.1 H (36.4-46.3) fL RDW Coeff of [place] 15.9 H (11.5-14.5) % Plt Count 212 (130-400) K/uL MPV 11.2 (9.4-12.4) fL Immature Gran % (Auto) 1.9 % Neut % (Auto) 90.6 % Lymph % (Auto) 3.1 % [place]key % (Auto) 4.3 % Eos % (Auto) 0.0 % Baso % (Auto) 0.1 % Neut # (Auto) 19.41 H (1.40-6.50) K/uL Lymph # (Auto) 0.66 L (1.20-3.40) K/uL Dickey # (Auto) 0.93 H (0.11-0.59) K/uL Eos # (Auto) 0.01 (0.00-0.50) K/uL Baso # (Auto) 0.03 (0.00-0.20) K/uL Immature Gran # (Auto) 0.40 H (0.01-0.20) K/uL PT 11.3 (9.0-12.0) Seconds INR 1.0 (0.9-1.1) Sodium 133 L (136-145) mmol/L Potassium 4.9 (3.5-5.1) mmol/L Chloride 97 L (98-107) mmol/L Carbon Dioxide 24 (21-32) mmol/L Anion Gap 12 H (3-11) BUN 171 H (6-23) mg/dl Creatinine 3.62 H (0.6-1.4) mg/dl Est Cr Clr Drug Dosing 21.6 ml/min Est GFR ( Amer) 17.4 ml/min Est GFR (Non-Af Amer) 15.0 ml/min BUN/Creatinine Ratio 47.2 H (10-20) Glucose 183 H (70-99(Fasting)) mg/dl Calcium 8.6 (8.6-10.3) mg/dl Total Bilirubin 0.7 (0.2-1.0) mg/dl AST 12 L (13-39) U/L ALT 15 (7-52) U/L Alkaline Phosphatase 75 (34-104) U/L Troponin I High Sens 31.3 H 29.8 H (0-20) pg/ml Total Protein 6.0 (6.0-8.3) gm/dl Albumin 3.1 L (3.4-5.0) gm/dl Globulin 2.9 (2.5-4.0) gm/dl Albumin/Globulin Ratio 1.1 (0.9-2) Lipase 54 (11-82) U/L Procalcitonin 0.62 H (0-0.5) ng/ml Urine Color Yellow Urine Appearance Clear (Clear) Urine pH 6.0 (4.5-7.5) Ur Specific [place] 1.013 (1.000-1.030) Urine Protein 1+ H (Negative) Urine Glucose (UA) Negative (Negative) Urine Ketones Negative (Negative) Urine Blood Negative (Negative) Urine Nitrite Negative (Negative) Urine Bilirubin Negative (Negative) Urine Urobilinogen Negative (Negative) Ur Leukocyte Esterase Negative (Negative) Urine WBC (Auto) 0 (0-5) /hpf Urine RBC (Auto) 0-4 (0-4) /hpf U Hyaline Cast (Auto) 1-5 (0-5) /lpf U Epithel Cells (Auto) 0-5 (0-5) /lpf Urine Bacteria (Auto) Negative (Negative) Adenovirus (PCR) Not Detected (NotDetected) B. pertussis DNA (PCR) Not Detected (NotDetected) B.parapertussis DNA PCR Not Detected (NotDetected) C. pneumoniae DNA (PCR) Not Detected (NotDetected) Coronavirus OC43 (PCR) Not Detected (NotDetected) Coronavirus HKU1 (PCR) Not Detected (NotDetected) Coronavirus 229E (PCR) Not Detected (NotDetected) SARS-CoV-2 (PCR) Not Detected (NotDetected) Coronavirus NL63 (PCR) Not Detected (NotDetected) Human Metapneumovir PCR Not Detected (NotDetected) Influenza Type A (PCR) Not Detected (NotDetected) Influenza Type B (PCR) Not Detected (NotDetected) M. pneumoniae (PCR) Not Detected (NotDetected) Parainfluenza 1 (PCR) Not Detected (NotDetected) Parainfluenza 2 (PCR) Not Detected (NotDetected) Parainfluenza 3 (PCR) Not Detected (NotDetected) Parainfluenza 4 (PCR) Not Detected (NotDetected) RSV (PCR) Not Detected (NotDetected) Entero/Rhino (PCR) Not Detected (NotDetected) Blood Type O Positive Antibody Screen NEGATIVE Administered Medications Discontinued Medications Sodium Chloride (Nss) 1,000 mls @ 999 mls/hr IV .Q1H1M STA Stop: 02/02/23 14:02 Last Infusion: 02/02/23 14:47 Dose: Infused Documented By: Admin: 02/02/23 13:22 Dose: 999 mls/hr Documented By: BARBARA Cefepime HCl (Maxipime) 2,000 mg in 20 mls @ 5 mls/min IV NOW STA; Protocol Stop: 02/02/23 16:16 Last Admin: 02/02/23 16:48 Dose: 5 mls/min Documented By: BARBARA Imaging Data Radiologist's Impression: Chest X-Ray 02/02/23 13:29 SINGLE VIEW CHEST CLINICAL HISTORY: Dyspnea FINDINGS: An AP, portable, upright chest radiograph is compared to study dated 01/16/2023. The heart is enlarged noting atherosclerotic calcification of the thoracic aorta. The pulmonary vasculature is noncongested. Chronic interstitial thickening is similar to previous. Mild scarring/atelectasis is noted at the lung bases. The lungs and pleural spaces are otherwise clear. No pneumothorax is seen. The skeletal structures are osteopenic. The bony thorax is grossly intact. IMPRESSION: Cardiomegaly with no acute cardiopulmonary abnormality identified. ACT 112: Negative or not required by law. Electronically signed by: Matthew Young M.D. 02/02/2023 1:46 PM Discharge Plan Visit Data Chief Complaint: Weakness ED Provider: Reese Delarosa Discharge Problem: Cellulitis Forms Stand Alone Forms: My [facility] [place] Prescriptions Prescriptions: No Action (DME) FreeStyle Saleem 2 Sensor Kit See Rx Instructions .Route Qty: 1 0RF Rx Instructions: Change sensor every 14 days levalbuterol tartrate [Xopenex HFA] 45 mcg/actuation HFA aerosol inhaler 2 inh INH Q6H PRN (Reason: shortness of breath) Qty: 15 2RF isosorbide mononitrate 30 mg tablet extended release 24 hr 30 mg PO BID Qty: 180 3RF insulin degludec [Tresiba FlexTouch U-200] 200 unit/mL (3 mL) insulin pen 32 unit SQ HS 30 Days Qty: 4.8 5RF Patient Comments: 16 units omeprazole 20 mg capsule,delayed release(DR/EC) 20 mg PO BID Qty: 180 3RF (DME) pen needle, diabetic [BD Denia 2nd Gen Pen Needle] 32 gauge x 5/32" needle See Rx Instructions miscellaneous .MEDSUPPLY Qty: 150 5RF Rx Instructions: change new pen needle 5x a day insulin aspart U-100 [Novolog FlexPen U-100 Insulin] 100 unit/mL (3 mL) insulin pen 33 unit SQ TIDM Qty: 2 3RF Patient Comments: 4 units Rx Instructions: Inject per sliding scale with meals up to 33 units daily (DME) Anti-Embolism Stockings Misc See Rx Instructions .Route Qty: 2 0RF Rx Instructions: As directed anti-embolism stockings mupirocin 2 % ointment See Rx Instructions TOP BID PRN (Reason: skin wound) Qty: 15 0RF Rx Instructions: Apply a small amount to open area of skin topically twice a day PRN; nitroglycerin [Nitrostat] 0.3 mg tablet, sublingual 0.3 mg sublingual Q5M PRN (Reason: chest pain) Qty: 30 3RF Patient Comments: has never needed it Rx Instructions: do not exceed 3 doses per episode Novolin N FlexPen 100 unit/mL (3 mL) insulin pen 12 unit subcut QAM Patient Comments: 14 units Rx Instructions: To start 23 units in the morning with Prednisone. Titrate up per protocol up to 46 units every morning. azelastine 137 mcg (0.1 %) aerosol,spray 2 spray intranasal BID PRN (Reason: nasal congestion) Qty: 30 11RF Rx Instructions: administer into each nostril acetaminophen [Tylenol Extra Strength] 500 mg tablet 1,000 mg PO TID PRN (Reason: Pain) Praluent Pen 75 mg/mL pen injector 75 mg subcut Q14D Qty: 1 6RF Patient Comments: most recent dose 01/15/23 Rx Instructions: inject subcutaneously into abdomen, thigh, or upper arm; rotate sites prednisone 20 mg tablet 15 mg PO QAM Patient Comments: on 01/25, will go down to 15mg daily for 2 weeks allopurinol 100 mg tablet 100 mg PO QAM aspirin [Adult Low Dose Aspirin] 81 mg tablet,delayed release (DR/EC) 81 mg PO QAM lorazepam 0.5 mg tablet 0.5 mg PO DAILY PRN (Reason: anxiety/pain ) nystatin 100,000 unit/gram powder 1 applic TOP DAILY PRN (Reason: Rash) fluticasone propionate 50 mcg/actuation spray,suspension 2 spray intranasal UD PRN (Reason: Congestion) Rx Instructions: administer into each nostril polyethylene glycol 3350 [Miralax] 17 gram Powder In Packet 17 g PO HS doxazosin [Cardura] 4 mg tablet 4 mg PO HS Del Taco 3 billion cell Capsule 1 cap PO QAM carvedilol 12.5 mg tablet 12.5 mg PO BID nystatin 100,000 unit/mL suspension 5 ml PO UD Rx Instructions: swish and spit out ergocalciferol (vitamin D2) 1,250 mcg (50,000 unit) capsule 1,250 mcg PO Q30D Rx Instructions: TAKE THIS MED MONTHLY ON THE FIRST WEDNESDAY OF THE MONTH. olmesartan 40 mg tablet 40 mg PO QAM torsemide 40 mg tablet 40 mg PO UD Rx Instructions: Alternate 40 mg daily and 40 mg BID every other day; Referrals Referrals: Mariusz Bustamante MD [Primary Care Provider] - Discharge Problem: Cellulitis Qualifiers: Site of cellulitis: extremity Site of cellulitis of extremity: lower extremity Laterality: right Qualified Code(s): L03.115 - Cellulitis of right lower limb
[2023-02-02 13:23] LABS: Hematocrit (blood only) 23.7 % (42.0-52.0); Hemoglobin 8.1 g/dl (14.0-18.0); Mean Corpuscular Hemoglobin 31.6 pg (25.0-34.0); Mean Corpuscular Hgb Conc 34.2 g/dL (32.0-36.0); Mean Corpuscular Volume 92.6 fL (80.0-100.0); Mean Platelet Volume 11.2 fL (9.4-12.4); Platelet Count 212 K/uL (130-400); RDW Coefficient of Variation 15.9 % (11.5-14.5); RDW Standard Deviation 54.1 fL (36.4-46.3); Red Blood Count 2.56 M/uL (4.70-6.10); White Blood Count 21.44 K/ul (4.8-10.8)
[2023-02-02 13:34] LABS: Albumin Globulin Ratio 1.1 (0.9-2); Albumin Level 3.1 gm/dl (3.4-5.0); Bilirubin,Total 0.7 mg/dl (0.2-1.0); Calcium 8.6 mg/dl (8.6-10.3); Creatinine Clr Calc Pharmacy 21.6 ml/min; Est GFR (African American) 17.4 ml/min; Globulin 2.9 gm/dl (2.5-4.0); Potassium 4.9 mmol/L (3.5-5.1)
[2023-02-02 13:40] LABS: Troponin I High Sensitivity 31.3 pg/ml (0-20)
[2023-02-02 13:42] LABS: Prothrombin Time 11.3 Seconds (9.0-12.0)
[2023-02-02 13:44] LABS: Basophils # (auto) 0.03 K/uL (0.00-0.20); Basophils % (auto) 0.1 %; Eosinophils # (auto) 0.01 K/uL (0.00-0.50); Immature Granulocytes % (auto) 1.9 %; Lymphocytes # (auto) 0.66 K/uL (1.20-3.40); Lymphocytes % (auto) 3.1 %; Monocytes # (auto) 0.93 K/uL (0.11-0.59); Monocytes % (auto) 4.3 %; Neutrophils # (auto) 19.41 K/uL (1.40-6.50); Neutrophils % (auto) 90.6 %
--- NOTE | 2023-02-02 13:47 | XRay Report ---
SINGLE VIEW CHEST CLINICAL HISTORY: Dyspnea FINDINGS: An AP, portable, upright chest radiograph is compared to study dated 01/16/2023. The heart i s enlarged noting atherosclerotic calcification of the thoracic aorta. The pulmonary vasculature is n oncongested. Chronic interstitial thickening is similar to previous. Mild scarring/atelectasis is not ed at the lung bases. The lungs and pleural spaces are otherwise clear. No pneumothorax is seen. The skeletal structures are osteopenic. The bony thorax is grossly intact. IMPRESSION: Cardiomegaly with no acute cardiopulmonary abnormality identified. ACT 112: Negative or not required by law. Electronically signed by: Matthew Young M.D. 02/02/2023 1:46 PM
[2023-02-02 13:54] LABS: BUN Creatinine Ratio 47.2 (10-20)
[2023-02-02 14:36] LABS: Adenovirus PCR Not Detected (NotDetected); Bordetella parapertussis PCR Not Detected (NotDetected); Bordetella pertussis PCR Not Detected (NotDetected); Chlamydia pneumoniae PCR Not Detected (NotDetected); Coronavirus 229E PCR Not Detected (NotDetected); Coronavirus CoV-2 (COVID19)PCR Not Detected (NotDetected); Coronavirus HKU1 PCR Not Detected (NotDetected); Coronavirus NL63 PCR Not Detected (NotDetected); Coronavirus OC43PCR Not Detected (NotDetected); Human Metapneumovirus PCR Not Detected (NotDetected); Influenza A PCR Not Detected (NotDetected); Influenza B PCR Not Detected (NotDetected); Mycoplasma pneumoniae PCR Not Detected (NotDetected); Parainfluenza Virus 1 PCR Not Detected (NotDetected); Parainfluenza Virus 2 PCR Not Detected (NotDetected); Parainfluenza Virus 3 PCR Not Detected (NotDetected); Parainfluenza Virus 4 PCR Not Detected (NotDetected); Respiratory Syncytial VirusPCR Not Detected (NotDetected); Rhinovirus/Enterovirus PCR Not Detected (NotDetected)
[2023-02-02 15:37] LABS: Appearance Urine Clear (Clear); Bacteria Urine Automated Negative (Negative); Bilirubin Urine Negative (Negative); Blood Urine Negative (Negative); Color Urine Yellow; Epithelial Cell Urine Auto 0-5 /lpf (0-5); Glucose Urine UA Negative (Negative); Ketones Urine Negative (Negative); Leukocyte Esterase Urine Negative (Negative); Nitrite Urine Negative (Negative); Protein Urine 1+ (Negative); RBC Urine Automated 0-4 /hpf (0-4); Specific Gravity Urine 1.013 (1.000-1.030); Urobilinogen Urine Negative (Negative); WBC Urine Automated 0 /hpf (0-5)
--- NOTE | 2023-02-02 15:45 | Electrocardiogram Report ---
Test Reason : Blood Pressure : / mmHG Vent. Rate : 082 BPM Atrial Rate : 000 BPM P-R Int : 000 ms QRS Dur : 142 ms QT Int : 406 ms P-R-T Axes : 000 -08 126 degrees QTc Int : 474 ms Sinus rhythm Left bundle branch block Abnormal ECG Confirmed by Mariusz Chance ([id number]) on 02/02/2023 3:45:34 PM Referred By: Sarkis Bustamante Confirmed By:Sarkis Chance
[2023-02-02] MEDS ORDERED: CEFEPIME 2,000 MG/20 ML VIAL IV STA (16:13)
--- NOTE | 2023-02-02 16:58 | History & Physical Report ---
Date of Service February 02, 2023 Assessment & Plan (1) Anemia: Plan: -Admit to med/tele -Currently hemodynamically stable and stable on RA -Patient has had known, progressive anemia over the past 3-4 months -Was recently admitted to [facility] on 01/17 due to concerns for acute GI bleed -He remained stable and wished to be discharged later that day -Hgb today is 8.1, down from 9.4 as of 01/17 -Has been reporting dark stool for months, was recently taken off Ibuprofen as he is also on chronic prednisone and on daily aspirin -EGD and Colonoscopy obtained on 01/27 were without signs of bleeding, had one 8 mm polyp on colonoscopy which was removed -No signs of acute bleeding on exam, will obtain Fecal Occult blood testing on admission -He has multiple risk factors for possible GI bleed, but with a recent negative workup this could be a chronic anemia from his temporal arteritis -Will obtain reticulocyte count to see if his bone marrow is responding appropriately -Will continue BID PPI -Can continue with clear liquid diet for now -Hold Chemical DVT PPX, will continue with home aspirin and BL CHI's until GI bleed can be ruled out -Patient was scheduled to have a Venofer infusion on 02/05, would need to hold venofer for now with current infection -Blood consent obtained, will type/screen for now if case he requires transfusion while admitted -Monitor CBC q6h overnight, transfusion for Hgb less than 7 or acute instability -AM BMP (2) Cellulitis of right leg: Plan: -Patient appears to have acute cellulitis of the RLE over the henry and calf -Stated today per , was fine yesterday when she was wrapping his legs -S/P one dose of cefepime in the ED -Will continue with Cefepime and add Daptomycin to cover possible MRSA -Wound care consult placed as the patient would likely do well with Unna Boots on discharge -Monitor blood cultures obtained in the ED (3) Acute kidney injury superimposed on CKD: Plan: -Cr today is 3.62, baseline is near 3.0 -Etiology is not obvious at this time -He may be intravascularly depleted but third spacing as he is without significant fluid on his lungs and has dry mucus membranes -He has been urinating but will obtain PVR on admission to rule out retention/post-renal etiology -He does have 1+ protein in his urine today, will obtain Protein:Cr ratio -S/P 1L NSS in the ED -Will hold additional IV fluids and his torsemide overnight and monitor for response, if he improves overnight then his etiology was likely pre-renal -Hold Olmesartan for now (4) Stage III pressure ulcer of right buttock: Plan: -Wound care nurse consult placed -Does not appear infected on exam today -Turn and position q2h ordered (5) Temporal arteritis: Plan: -Has been on a slow Prednisone taper since July per his -Was recently reduced from 20 mg PO daily to 15 with first dose yesterday -Gave 100 mg IV solu-medrol on admission, will continue 50 mg IV q6h for now -Will hold PO prednisone while on stress dosed regimen, will need to restart prior to discharge (6) Esophageal candidiasis: Plan: -Has been treated for esophageal candidiasis with Oral Nystatin for months per patient's without improvement -Noted to have signs of ongoing infection on exam today -Will start IV fluconazole today, should continue daily for 14-21 days -Will hold oral nystatin for now -Monitor for improvement (7) Bilateral lower extremity edema: Plan: -Known chronic venous insufficiency - states that patient doesn't like to have CHI stockings in place -Stressed the importance of CHI stockings, patient is willing to try -BL CHI's ordered -Holding torsemide overnight with his IDALMIS (8) Weakness: Plan: -Likely multifactorial with baseline poor health exacerbated by cellulitis, worsening anemia, and IDALMIS -Could also have a component of adrenal insufficiency -Will continue treatment of his acute illnesses -Stress dose steroids started -PT/OT consults placed -Fall precautions (9) Type 2 diabetes mellitus, with long-term current use of insulin: Plan: -Monitor BSG ACHS goal is 110-160 while on stress dosed steroids -Will start 15 units lantus BID -CF of 40 ACHS, hold carb ratio while on clear liquid diet -Pharmacy glycemic consult placed (10) Hypertension: Plan: -Stable -Holding torsemide and Olmesartan for now with IDALMIS -Continue Carvedilol Plan The patient was discussed with Dr. Morocho at the time of the admission History of Present Illness Chief Complaint: Generalized weakness, worsening anemia, recommended for ED eval by PCP Primary Care Provider: Mariusz Bustamante MD David is a 78 year old male with a PMH significant for CKD, chronic anemia, hypertension, HFpEF, asthma, diabetes mellitus, left bundle branch block, and giant cell arteritis (Currently on Prednisone tape) who presented to the [facility] ED via EMS on 02/02 with complaints of increased weakness, sacral ulcer, and worsening edema to the BL LE's. They called his PCP today as he was reportedly supposed to have an iron infusion in the near future and was directed to go to the ED for further evaluation. He was initially tachycardic at 100 BPM but otherwise stable. Labs were significant for a leukocytosis of 21 with neutrophil predominance of 19 (both increased since 01/28), Hgb of 8.1 (down from 12 as of October), Cr of 3.62 (baseline is near 3.0), BUN of 171, initial high sen trop of 31 --> 29 on 2 hour repeat, procal of 0.62. Chest xray was read as "Cardiomegaly with no acute cardiopulmonary abnormality identified.". Prior to admission the patient was given a dose of Cefepime and 1L NSS. The patient was recently admitted on 01/17 with same day discharge for concerns of acute GI bleed, anemia, BL LE swelling, and stage 2 pressure ulcer of the sacrum. Per the discharge summary, the patient has been on a steroid taper due to giant cell arteritis and has been on 20 mg PO daily. He was reportedly taking BID ibuprofen on top of his daily baby aspirin, he stopped the ibuprofen approximately 2 days prior to his last admission. His initial Hemoccult test was inconclusive with 2 repeats being negative. He remained stable and did not require transfusion while admitted. The patient did not want to stay for inpatient GI workup and was discharged home off Ibuprofen but still on Aspirin and Prednisone. At the time of the exam the patient was sitting in bed in no acute distress with his /Primary Caregiver sitting bedside, history was obtained from both. The patient's states that since getting his EGD and Colonoscopy on 01/27 the patient has on progressive generalized weakness. Normally he is able to get out of bed with his 's assistance and ambulate with the use of a walker. Today, his states that he was too weak to get out of bed. He appetite has been good. He is no longer taking Ibuprofen. He is currently on 15 mg PO Prednisone daily. They deny recent fever, chills, chest pain, cough, SOB, and pain, nausea, vomiting, diarrhea, dysuria, hematuria, and recent trauma. When asked, they state that his stool has been "dark" for "months" as noted on his last admission. They deny bright red blood on recent BM's. His states that the patient right LE became acutely erythematous earlier today. She confirms that it usually has chronic skin changes from venous stasis like his LLE. When asked, they explain that he has been treated with oral Nystatin for chronic esophageal Candidiasis for "months" without improvement. He is a full code and his is his primary decision maker if he is unable to make decisions himself. His is asking if we can order him something for sleep as he has been having ongoing insomnia for the past few months, she confirms he takes his prednisone in the am. Please refer to Dr. Morocho's attestation for any changes to the treatment plan Allergies Allergy/AdvReac Type Severity Reaction Status Date / Time atorvastatin Allergy Intermediate MUSCLE Verified 01/29/23 09:03 ACHES exenatide Allergy Intermediate SWELLING Verified 01/29/23 09:03 metformin Allergy Intermediate KIDNEY Verified 01/29/23 09:03 DISEASE phenol Allergy Intermediate SWELLING Verified 01/29/23 09:03 pioglitazone Allergy Intermediate SWELLING Verified 01/29/23 09:03 simvastatin Allergy Intermediate MUSCLE Verified 01/29/23 09:03 ACHES ether Allergy Mild n/v Verified 01/29/23 09:03 Home Medications Medication Instructions Recorded Confirmed Type nitroglycerin 0.3 mg sublingual 0.3 mg sublingual Q5M PRN chest 07/11/20 02/02/23 Rx tablet (Nitrostat) pain #30 tabs flash glucose sensor (FreeStyle #1 ea 11/17/21 01/29/23 Rx Saleem 2 Sensor kit) levalbuterol tartrate 45 2 inh inhalation Q6H PRN shortness 05/19/22 02/02/23 Rx mcg/actuation aerosol inhaler of breath #15 grams (Xopenex HFA) alirocumab 75 mg/mL subcutaneous 75 mg subcut Q14D #1 mL 06/23/22 02/02/23 Rx pen injector (Praluent Pen) isosorbide mononitrate 30 mg 30 mg PO BID #180 tabs 07/22/22 02/02/23 Rx tablet,extended release 24 hr azelastine 137 mcg (0.1 %) nasal 2 spray intranasal BID PRN nasal 07/29/22 02/02/23 Rx spray aerosol congestion #30 mL Tresiba FlexTouch U-200 200 32 unit (0.16 mL) subcut HS 30 10/06/22 02/02/23 Rx unit/mL (3 mL) subcutaneous pen days #4.8 Boxes (insulin degludec) allopurinol 100 mg tablet 100 mg PO QAM 10/14/22 02/02/23 History aspirin 81 mg tablet,delayed 81 mg PO QAM 10/14/22 02/02/23 History release (Adult Low Dose Aspirin) fluticasone propionate 50 2 spray intranasal UD PRN 10/14/22 02/02/23 History mcg/actuation nasal Congestion spray,suspension nystatin 100,000 unit/gram topical 1 applic topical DAILY PRN Rash 10/14/22 1 04/05/22 History powder polyethylene glycol 3350 17 gram 17 g PO HS 10/14/22 02/02/23 History oral powder packet (Miralax) acetaminophen 500 mg tablet 1,000 mg PO TID PRN Pain 10/22/22 02/02/23 History (Tylenol Extra Strength) doxazosin 4 mg tablet (Cardura) 4 mg PO HS 10/28/22 02/02/23 History omeprazole 20 mg capsule,delayed 20 mg PO BID #180 caps 10/30/22 02/02/23 Rx release pen needle, diabetic 32 gauge x #150 ea 11/17/22 01/29/23 Rx 5/32" (BD Denia 2nd Gen Pen Needle) insulin aspart U-100 100 unit/mL 33 unit (0.33 mL) subcut TIDM #2 11/20/22 02/02/23 Rx (3 mL) subcutaneous pen (Novolog Boxes FlexPen U-100 Insulin aspart) Lactobacillus rhamnosus-Bifidobac. 1 cap PO QAM 12/03/22 02/02/23 History animalis 3 billion cell capsule ([employer]) miscellaneous medical supply #2 ea 01/06/23 01/29/23 Rx (Anti-Embolism Stockings) carvedilol 12.5 mg tablet 12.5 mg PO BID 01/20/23 02/02/23 History ergocalciferol (vitamin D2) 1,250 1,250 mcg PO Q30D 01/20/23 02/02/23 History mcg (50,000 unit) capsule nystatin 100,000 unit/mL oral 5 ml PO UD 01/20/23 02/02/23 History suspension olmesartan 40 mg tablet 40 mg PO QAM 01/20/23 02/02/23 History torsemide 40 mg tablet 40 mg PO UD 01/20/23 02/02/23 History insulin NPH isoph U-100 human 100 12 unit subcut QAM 01/29/23 02/02/23 History unit/mL (3 mL) subcutaneous pen (Novolin N FlexPen) prednisone 20 mg tablet 15 mg PO QAM 01/29/23 02/02/23 History Past Med/Surg History Medical History (Updated 02/02/23 @ 18:35 by Abe Rodriguez PA-C) Arthritis Wound of back currently seeing wound care for small wound on lower back/top of buttocks, next visit w/wound dr will be on 01/26/23 Weakness generalized currently trying to get in home therapy Temporal arteritis LYNDA (obstructive sleep apnea) no device Type 2 diabetes mellitus IDDM Umbilical hernia present Eye problem right/hole present in this eye for yrs/follows Dr. Mclean - 2 mon ago vessel broken & healing/recent f/u2 weeks ago and told eye is fine. History of anesthesia reaction age 2 w/ tonsillectomy/ ether : n/v. Unique anesthetic considerations on preoperative anesthesia assessment becomes anxious when lies flat/worries he will be short of breath Snoring Positive colorectal cancer screening using Cologuard test seeing GI specialist after up coming procedure Gallstones present for several yrs Gastroparesis Hx of gout Hyperlipidemia Chronic rhinitis Chronic idiopathic urticaria hx Chronic kidney disease, stage 4 (severe) follows with Dr. Lance, Baseline Cr 2.4 w/ EGFR 24 cc/min Chronic diastolic congestive heart failure follows with Dr. Issa Bilateral tinnitus Sensorineural hearing loss (SNHL) of both ears wears hearing aids both ears Diabetic peripheral neuropathy associated with type 2 diabetes mellitus MRSA (methicillin resistant staph aureus) culture positive no known hx that is aware of Left bundle-branch block chronic Hypertension Anemia Surgical History (Updated 01/22/23 @ 00:08 by Andre Rosenbaum) History of tooth extraction History of myringotomy History of carpal tunnel surgery left History of surgical removal of skin lesion History of tonsillectomy Family History Father Bladder cancer Diabetes Mother Uterine cancer Breast cancer Heart disease Hypertension Denies family history of Ovarian cancer Prostate cancer Coronary heart disease Myocardial infarction Colorectal cancer Social History (Updated 01/19/23 @ 10:46 by Mary Lou Johnson RN) Smoking Status: Former smoker Tobacco Type: Cigarettes Age Started Using Tobacco: 14; Age Quit Using Tobacco: 24; packs per day: 3; Second Hand Exposure: No; Do You Dip or Chew Tobacco: No; Hx Alcohol Use: Yes (none for last 30 years, not a heavy drinker) Hx Substance Use: No Preferred Language: Mohawk Communication Ability: Effective Communication Ability Comment: [place] - uses hearing aides and microphone /pt does phone interview Visual Impairment: Limited Hearing Ability: Use of Hearing Aid Leisure Travel Agent Required: No Beliefs That Will Affect Care: None marital status: Current Living Situation: Spouse and Family Current Living Situation Comment: gradaughter and family living in basement current occupational status: retired 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 Feels Safe at Home: Yes Childhood Exposure to Second-Hand Smoke: No Diet: diabetic and regular caffeine: Yes during the past year weight has: decreased > 10 lbs Dental Care, Regularly: No Physical Activity Frequency: Daily Seatbelt Use: never Sunscreen Use: No Assistive Devices: Cane, Denture - Upper, Glasses, Hearing Aid - Bilateral, Walker and Wheelchair Physical Exam Physical Exam: Physical Exam: General: In no acute distress, stated age, chronically ill appearing but non- toxic appearing HEENT: Normocephalic, atraumatic, no scleral icterus, pupils around round, symmetrical, and reactive to light, dry mucus membranes, patient with brown discharge on the mucus membranes of the oropharynx consistent with fungal infection, trachea midline, no thyromegaly Chest/Pulm: No respiratory distress, symmetrical chest expansion, clear breath sounds throughout Cardiac: RRR, no murmurs noted Abdomen: Negative for ascites and bruising, normoactive bowel sounds, soft, non-tender to palpation throughout Musculoskeletal: Symmetrical and without signs of acute trauma, upper and lower extremities with full ROM, no atrophy, spasticity, or flaccidity Extremities: Radial, dorsalis pedis, and posterior tibial pulses are intact and symmetrical, 3+ pitting edema noted in the BL LE's Skin: patient with erythema, warmth and tenderness circumferentially over the right henry/calf consistent with cellulitis, LLE with signs consistent with chronic venous stasis Neuro: Alert and oriented to person, place, month, year, and president, no focal defects, no tremors noted Psych: No acute distress, calm and cooperative during the exam Results & Data Results & Data Vital Signs (Past 12 Hours) Vital Signs Temp Pulse Pulse Resp BP BP Pulse Ox 02/02/23 13:40 96 02/02/23 13:22 78 02/02/23 12:53 36.8 C 80 17 125/93 100 02/02/23 12:46 36.8 C 100 H 18 125/93 100 O2 Del Method 02/02/23 13:40 Room Air 02/02/23 13:22 02/02/23 12:53 Room Air 02/02/23 12:46 Room Air Laboratory Results Abnormal lab results 02/02/23 02/02/23 02/02/23 Range/Units 12:45 14:49 Unknown WBC 21.44 H (4.8-10.8) K/ul RBC 2.56 L (4.70-6.10) M/uL Hgb 8.1 L (14.0-18.0) g/dl Hct 23.7 L (42.0-52.0) % RDW Std Deviation 54.1 H (36.4-46.3) fL RDW Coeff of [place] 15.9 H (11.5-14.5) % Neut # (Auto) 19.41 H (1.40-6.50) K/uL Lymph # (Auto) 0.66 L (1.20-3.40) K/uL [place] # (Auto) 0.93 H (0.11-0.59) K/uL Immature Gran # (Auto) 0.40 H (0.01-0.20) K/uL Sodium 133 L (136-145) mmol/L Chloride 97 L (98-107) mmol/L Anion Gap 12 H (3-11) BUN 171 H (6-23) mg/dl Creatinine 3.62 H (0.6-1.4) mg/dl BUN/Creatinine Ratio 47.2 H (10-20) Glucose 183 H (70-99(Fasting)) mg/dl AST 12 L (13-39) U/L Troponin I High Sens 31.3 H 29.8 H (0-20) pg/ml Albumin 3.1 L (3.4-5.0) gm/dl Procalcitonin 0.62 H (0-0.5) ng/ml Urine Protein 1+ H (Negative) Diagnostic Findings Chest X-Ray 02/02/23 13:29 SINGLE VIEW CHEST CLINICAL HISTORY: Dyspnea FINDINGS: An AP, portable, upright chest radiograph is compared to study dated 01/16/2023. The heart is enlarged noting atherosclerotic calcification of the thoracic aorta. The pulmonary vasculature is noncongested. Chronic interstitial thickening is similar to previous. Mild scarring/atelectasis is noted at the lung bases. The lungs and pleural spaces are otherwise clear. No pneumothorax is seen. The skeletal structures are osteopenic. The bony thorax is grossly intact. IMPRESSION: Cardiomegaly with no acute cardiopulmonary abnormality identified. ACT 112: Negative or not required by law. Electronically signed by: Matthew Young M.D. 02/02/2023 1:46 PM ECG Additional Comments: Sinus rhythm Left bundle branch block Abnormal ECG Confirmed by Mariusz Chance ([id number]) on 02/02/2023 3:45:34 PM Code Status & VTE Plan Code Status Full code VTE Prophylaxis Plan VTE Prophylaxis will be ordered: Yes Supervising Physician Co-Signing Physician Notes Attending addendum: I have physically seen this patient, have supervised the RADHA's activities, and agree with the H&P unless as otherwise noted. Assessment and Plan: Progressive symptomatic anemia- The patient will be admitted to telemetry for serial cardiac enzymes, serial EKG's, cardiac rhythm monitoring Hemoglobin noted to be 12.8 on 11/26/2022, with gradual decline since that time Potential contributing factors but not limited to: Temporal arteritis, gastric irritation from chronic prednisone/ibuprofen use. Anemia of chronic CKD Hemoccult stools Check iron studies and B12 and folate levels, check reticulocyte count Hemoglobin may actually be low then appears at 8.1, as patient looks to be volume contracted from relative dehydration Recheck laboratories in a.m. and transfuse as needed Type and screen with consent Pantoprazole 40 mg p.o. twice daily Was to have an iron infusion on 02/05 Cellulitis of right lower extremity- Relatively new finding per his , who takes care of him daily Placed on daptomycin IV and cefepime IV Consult wound care Outpatient would benefit from Nino cunningham Acute kidney injury superimposed on CKD- Creatinine 3.62, with base 2.61 Follow serially Temporal arteritis- Patient has been on prednisone taper since July Will need stress dosing with IV Solu-Medrol to address possible adrenal insufficiency PG Care Time/CCT Total # of Minutes Spent Total Time Spent with Patient: Total time spent is greater than 50% in coordination of care (as documented) at patient's floor/unit and/or counseling patient: Coding [place] [address] INT INP/OBS CARE 3/75MIN Patient Type Established Medical Decision Making High Complexity Diagnoses Anemia D64.9 Anemia type: unspecified type Cellulitis of right leg L03.115 Acute kidney injury superimposed on CKD N17.9; N18.9 Stage III pressure ulcer of right buttock L89.313 Temporal arteritis M31.6 Esophageal candidiasis B37.81 Bilateral lower extremity edema R60.0 Weakness R53.1 Type 2 diabetes mellitus, with long-term current use of insulin E11.9; Z79.4 Primary hypertension I10 Hypertension type: primary hypertension (1) Anemia Anemia type: unspecified type Qualified Code(s): D64.9 - Anemia, unspecified (10) Hypertension Hypertension type: primary hypertension Qualified Code(s): I10 - Essential (primary) hypertension
[2023-02-02] MEDS ORDERED: HYDROCORTISONE SOD SUCCINATE 100 MG/2 ML VIAL IV STA (17:54)
[2023-02-02] MEDS ORDERED: FLUCONAZOLE 200 MG/100 ML BAG IV SCH (18:00)
[2023-02-02] MEDS ORDERED: DAPTOmycin 375 MG in SYRINGE 0 ML IV SCH (18:00)
[2023-02-02] MEDS ORDERED: GLUCOSE 40% GEL 15 GM TUBE PO PRN (18:04)
[2023-02-02] MEDS ORDERED: GLUCOSE 10 TAB/TUBE PO PRN (18:04)
[2023-02-02] MEDS ORDERED: DEXTROSE 50% 50 ML SYRINGE IV PRN (18:04)
[2023-02-02] MEDS ORDERED: GLUCAGON FOR INJ 1 MG VIAL SQ PRN (18:04)
[2023-02-02] MEDS ORDERED: CARBOHYDRATES FOR HYPOGLYCEMIA PO PRN (18:04)
[2023-02-02] MEDS ORDERED: PHARMACY GLYCEMIC MGMT CONSULT PRN (18:04)
[2023-02-02 19:13] LABS: Reticulocyte % 5.9 % (0.5-2.0); Reticulocytes # 0.15 10^6/uL (0.02-0.10)
[2023-02-02] MEDS ORDERED: TORSEMIDE 40 MG PO SCH (19:26)
[2023-02-02 20:22] LABS: Creatinine Urine Random 59.1 mg/dl; Protein Creatinine Ratio Urine 0.6 (0-0.2); Total Protein Urine Random 37.8 mg/dl (0-11.9)
[2023-02-02] MEDS ORDERED: LANTUS PER UNIT CHARGE SQ SCH (21:00)
[2023-02-02] MEDS: carvediloL 12.5 MG TAB PO SCH (21:32)
[2023-02-02] MEDS: ISOSORBIDE MONO EXTENDED REL 30 MG TABCR PO SCH (21:32)
[2023-02-02] MEDS: PANTOprazole 40 MG TAB PO SCH (21:32)
[2023-02-02] MEDS: DOXAZosin MESYLATE 4 MG TAB PO SCH (21:32)
[2023-02-02] MEDS: INSULIN ASPART PER UNIT CHARGE SC SCH (21:40)
[2023-02-03] MEDS ORDERED: HYDROCORTISONE SOD SUCCINATE 100 MG/2 ML VIAL IV SCH
[2023-02-03 01:30] LABS: Hematocrit (blood only) 23.9 % (42.0-52.0); Mean Corpuscular Hemoglobin 31.9 pg (25.0-34.0); Mean Corpuscular Hgb Conc 33.5 g/dL (32.0-36.0); Mean Corpuscular Volume 95.2 fL (80.0-100.0); Mean Platelet Volume 11.6 fL (9.4-12.4); Platelet Count 203 K/uL (130-400); RDW Coefficient of Variation 15.9 % (11.5-14.5); RDW Standard Deviation 54.9 fL (36.4-46.3); Red Blood Count 2.51 M/uL (4.70-6.10); White Blood Count 16.34 K/ul (4.8-10.8)
[2023-02-03] MEDS: HYDROCORTISONE SOD 50 MG in SYRINGE 0 ML IV SCH ×4 (06:05→20:24)
[2023-02-03] MEDS: CEFEPIME 1,000 MG in SYRINGE 0 ML IV SCH ×2 (06:05→16:18)
[2023-02-03 07:45] LABS: Hematocrit (blood only) 24.2 % (42.0-52.0); Mean Corpuscular Hemoglobin 31.7 pg (25.0-34.0); Mean Corpuscular Hgb Conc 33.1 g/dL (32.0-36.0); Mean Platelet Volume 11.2 fL (9.4-12.4); Platelet Count 191 K/uL (130-400); RDW Coefficient of Variation 15.9 % (11.5-14.5); RDW Standard Deviation 55.6 fL (36.4-46.3); Red Blood Count 2.52 M/uL (4.70-6.10); White Blood Count 14.73 K/ul (4.8-10.8)
[2023-02-03 07:58] LABS: Calcium 8.6 mg/dl (8.6-10.3); Creatinine Clr Calc Pharmacy 24.2 ml/min; Est GFR (Non-African American) 17.3 ml/min; Magnesium 2.6 mg/dl (1.7-2.4); Potassium 4.3 mmol/L (3.5-5.1)
[2023-02-03 08:12] LABS: BUN Creatinine Ratio 46.7 (10-20)
[2023-02-03] MEDS: ASPIRIN 81 MG ECTAB PO SCH (08:35)
[2023-02-03] MEDS: allopurinoL 100 MG TAB PO SCH (08:35)
[2023-02-03] MEDS: PANTOprazole 40 MG TAB PO SCH ×2 (08:35→20:25)
[2023-02-03] MEDS: ISOSORBIDE MONO EXTENDED REL 30 MG TABCR PO SCH ×2 (08:35→20:25)
[2023-02-03] MEDS: carvediloL 12.5 MG TAB PO SCH ×2 (08:35→20:25)
[2023-02-03] MEDS: FLUCONAZOLE 200 MG/100 ML BAG IV SCH (08:36)
[2023-02-03] MEDS: INSULIN ASPART PER UNIT CHARGE SC SCH ×4 (08:45→20:32)
[2023-02-03 08:51] LABS: Estimated Average Glucose 174 mg/dl; Hemoglobin A1C 7.7 % (4.5-5.6)
[2023-02-03] MEDS ORDERED: LANTUS PER UNIT CHARGE SQ ONE (09:00)
[2023-02-03 12:36] LABS: Hematocrit (blood only) 24.1 % (42.0-52.0); Hemoglobin 8.1 g/dl (14.0-18.0); Mean Corpuscular Hemoglobin 32.3 pg (25.0-34.0); Mean Corpuscular Hgb Conc 33.6 g/dL (32.0-36.0); Mean Platelet Volume 10.9 fL (9.4-12.4); Platelet Count 187 K/uL (130-400); RDW Coefficient of Variation 15.8 % (11.5-14.5); RDW Standard Deviation 54.4 fL (36.4-46.3); Red Blood Count 2.51 M/uL (4.70-6.10); White Blood Count 14.62 K/ul (4.8-10.8)
--- NOTE | 2023-02-03 13:16 | Hospitalist Progress Note ---
Date of Service February 03, 2023 Assessment & Plan (1) Anemia: Plan: Hemodynamically stable Hemoglobin recently with a baseline around 8, was last elevated at 9.4 in 01/17 Is iron deficient and was pending an iron transfusion 02/04, this is held pending treatment of suspected active infection and cellulitis. Patient should have at least 1 dose of this prior to discharge No signs of active bleeding Stool occult pending Continue clear diet, may advance if no signs of decreasing hemoglobin/Hemoccult negative - Reticulocyte count 5.9%, hematocrit 24.1, reticulocyte index 1.69 indicating hypoproliferation. Suspect due to iron deficiency. PPI twice daily (2) Cellulitis of right leg: Plan: - Right leg with 24 hours of acute warmth, tenderness, demarcated erythema asymmetrical compared to the left. With associated leukocytosis and elevated procalcitonin Cefepime/daptomycin ordered Continue broad coverage due to comorbidities, narrow once clinically improving. High sensitive troponin was mildly elevated suspect demand ischemia, this is downtrending -Wound care consulted for both unna boots and sacral wound. Sacral wound is without evidence of superimposed cellulitis/infection (3) Acute kidney injury superimposed on CKD: Plan: Baseline creatinine around 3, acutely elevated to 3.62 on admission and now beginning to down trended Patient suspected to have third spacing in the setting of infection Olmesartan held Continue oral fluids, hemodynamically stable Trend BMP daily Will likely need diuresis once infection is treated and third spacing improves (4) Stage III pressure ulcer of right buttock: Plan: -Wound care nurse consult placed -Does not appear infected on exam today -Turn and position q2h ordered (5) Temporal arteritis: Plan: -Has been on a slow Prednisone taper since July per his -Was recently reduced from 20 mg PO daily to 15 with first dose yesterday -Gave 100 mg IV solu-medrol on admission, continue on 50 mg IV every 6 Blood pressure is rapidly improved, will space to twice daily at this time and then continue to down titrate to lower breast dose as clinically (6) Esophageal candidiasis: Plan: -Has been treated for esophageal candidiasis with Oral Nystatin for months per patient's without improvement -Noted to have signs of ongoing infection on exam today IV fluconazole continued, total course 14-day (7) Bilateral lower extremity edema: Plan: -Known chronic venous insufficiency - states that patient doesn't like to have CHI stockings in place -Stressed the importance of CHI stockings, patient is willing to try -BL CHI's ordered -Holding torsemide due to IDALMIS and suspected intravascular depletion (8) Weakness: Plan: -Likely multifactorial with baseline poor health exacerbated by cellulitis, worsening anemia, and IDALMIS -Could also have a component of adrenal insufficiency -Will continue treatment of his acute illnesses -Stress dose steroids started -PT/OT consults placed -Fall precautions (9) Type 2 diabetes mellitus, with long-term current use of insulin: Plan: -Monitor BSG ACHS goal is 110-160 while on stress dosed steroids -Will start 15 units lantus BID -CF of 40 ACHS, hold carb ratio while on clear liquid diet -Pharmacy glycemic consult placed (10) Hypertension: Plan: -Stable -Holding torsemide and Olmesartan for now with IDALMIS -Continue Carvedilol Admission and Anticipated Discharge Date Admission Date: February 02, 2023 Subjective Seen at the bedside this morning. He reports his right leg has been acutely red, hot, warm, and tender for the last 24 hours and asymmetrically so compared to the left leg. He reports that this is new and had not happened before. He denies fever, chills, sweats, lightheadedness, dizziness. Does endorse global weakness which is worse in general in the last week and probably worse in the last 24 hours as well. He has had dark bowel movements but denies melena/hematochezia. Hemoglobin has been gradually downtrending but is stable at around 8 on admission. He is on a PPI. He had a EGD/Hope which did not show any evidence of bleeding or ulcers. He is iron deficient and was pending a iron infusion 02/04, patient is aware this has been held temporarily in the setting of acute infection and suspected right lower extremity cellulitis. He is hungry without other complaints or concerns Physical Exam Physical Exam: General: A&Ox3. NAD. Cooperative. HEENT: Atraumatic, normocephalic. Vision and hearing grossly intact Pulm: CTAB A&P. -wheezes, -rales, -rhonchi. Symmetrical chest rise. No increased work of breathing. No respiratory distress. Cardiac: RRR, -mrg. Radial pulses intact and symmetrical. Skin: 3X areas of superficial skin erosion and sacral pressure ulcers. Covered with dressing, no signs of superimposed cellulitis on admission Abdominal: Nontender, nondistended, soft. BS present. Extremities: 2+ pitting edema in the lower extremities bilaterally, right lower extremity with acute and asymmetric warmth, erythema, and tenderness consistent with cellulitis sensation soft touch intact in hands and feet bilaterally Results & Data Results & Data Vital Signs (Past 12 Hours) Vital Signs Temp Pulse Pulse Pulse Resp BP Pulse Ox 02/03/23 11:59 36.3 C L 66 16 161/71 H 97 02/03/23 10:50 02/03/23 09:05 36.6 C 75 16 164/71 H 96 02/03/23 07:27 78 02/03/23 04:13 36.6 C 78 18 173/70 H 99 O2 Del Method 02/03/23 11:59 Room Air 02/03/23 10:50 Room Air 02/03/23 09:05 Room Air 02/03/23 07:27 02/03/23 04:13 Room Air PG Care Time/CCT Total # of Minutes Spent Total Time Spent with Patient: Total time spent is greater than 50% in coordination of care (as documented) at patient's floor/unit and/or counseling patient: Coding Level of Care Code 45877 SUB INP/OBS CARE 3/50MIN Diagnoses Anemia D64.9 Anemia type: unspecified type Cellulitis of right leg L03.115 Acute kidney injury superimposed on CKD N17.9; N18.9 Stage III pressure ulcer of right buttock L89.313 Temporal arteritis M31.6 Esophageal candidiasis B37.81 Bilateral lower extremity edema R60.0 Weakness R53.1 Type 2 diabetes mellitus, with long-term current use of insulin E11.9; Z79.4 Primary hypertension I10 Hypertension type: primary hypertension (1) Anemia Anemia type: unspecified type Qualified Code(s): D64.9 - Anemia, unspecified (10) Hypertension Hypertension type: primary hypertension Qualified Code(s): I10 - Essential (primary) hypertension
--- NOTE | 2023-02-03 14:35 | Pharmacy Report ---
Pharmacy Glycemic Short Note 2 - Date of Service February 03, 2023 - Glycemic Short BSG Results (Last 24 hours): 02/03/23 02/03/23 02/03/23 07:01 08:16 12:04 Glucose 173 H POC Glucose 195 H 207 H OUTPATIENT ANTIDIABETIC REGIMEN: * Tresiba 32 units HS * NPH 12 units * Novolog 33 units TIDM ASSESSMENT: * Mr Broderick is a 78 y/o M with a PMH of IDDM who presents with weakness. He has been on a prolonged prednisone taper. Most recently he has been on prednisone 15 mg daily. * Patient initially started on hydrocortisone 50 mg IV q6 hours. This was changed to q12 today. * BSGs today are 195-207 mg/dL. * Patient received Lantus 15 units yesterday. Gave 30 units this AM (15 units as "make up" for half dose yesterday + 15 units for steroid hyperglycemia). * Will have scale this evening depending on BSG. * Novolog weight-based stress 3. Will utilize tighter CR since patient requires more Novolog with meals as demonstrated by home regimen. PLAN FOR INPATIENT GLYCEMIC CONTROL: * Basal insulin * Lantus 30 units SQ x 1 then 0-30 units HS * Bolus insulin * NovoLog per scale ACHS or Q6hrs while NPO * Goal Range: Low 110 mg/dL - High 140 mg/dL * Correction Factor: 25 mg/dL/unit * Nutritional / Prandial insulin per carb ratio of 1 unit per 5 grams CHO consumed
[2023-02-03] MEDS ORDERED: ACETAMINOPHEN 500 MG TAB PO PRN (16:07)
[2023-02-03 16:53] LABS: A calco-baum cmplx NotReported Not Detected (NotDetected); Bact fragilis Not Reported Not Detected (NotDetected); Blood Culture Id Panel See PCR Comment (NotDetected); C auris Not Reported Not Detected (NotDetected); Calbicans Not Reported Not Detected (NotDetected); Candida glabrata Not Reported Not Detected (NotDetected); Candida krusei Not Reported Not Detected (NotDetected); Cneoformans/gatti Not Reported Not Detected (NotDetected); Cparapsilosis Not Reported Not Detected (NotDetected); E cloacae compx Not Reported Not Detected (NotDetected); Efaecalis Not Reported Not Detected (NotDetected); Efaecium Not Reported Not Detected (NotDetected); Enterobacterales Not Reported Not Detected (NotDetected); Escherichia coli Not Reported Not Detected (NotDetected); H influenzae Not Reported Not Detected (NotDetected); K aerogenes Not Reported Not Detected (NotDetected); Koxytoca Not Reported Not Detected (NotDetected); Kpneumoniae grp Not Reported Not Detected (NotDetected); Lmonocyt Not Reported Not Detected (NotDetected); N meningitidis Not Reported Not Detected (NotDetected); P aeruginosa Not Reported Not Detected (NotDetected); Proteus spp Not Reported Not Detected (NotDetected); Salmonella spp Not Reported Not Detected (NotDetected); Smarcescens Not Reported Not Detected (NotDetected); Staph lugdunensis Not Reported Not Detected (NotDetected); Staph spp. Not Reported DETECTED (NotDetected); Staphaureus Not Reported Not Detected (NotDetected); Staphepi Not Reported DETECTED (NotDetected); Stenmaltophilia Not Reported Not Detected (NotDetected); Strep agal(GrpB) Not Reported Not Detected (NotDetected); Strep pneum Not Reported Not Detected (NotDetected); Strep pyog (GrpA) Not Reported Not Detected (NotDetected); Strep spp Not Reported Not Detected (NotDetected); mecAC Resistant Gene Not Detected (NotDetected)
[2023-02-03 17:11] LABS: Staphylococcus epidermidis DETECTED (NotDetected); Staphylococcus spp. DETECTED (NotDetected)
[2023-02-03] MEDS ORDERED: MELATONIN 3 MG TAB PO PRN (17:15)
[2023-02-03 19:18] LABS: Hematocrit (blood only) 24.8 % (42.0-52.0); Hemoglobin 8.1 g/dl (14.0-18.0); Mean Corpuscular Hemoglobin 31.4 pg (25.0-34.0); Mean Corpuscular Hgb Conc 32.7 g/dL (32.0-36.0); Mean Corpuscular Volume 96.1 fL (80.0-100.0); Platelet Count 194 K/uL (130-400); RDW Coefficient of Variation 15.9 % (11.5-14.5); RDW Standard Deviation 55.8 fL (36.4-46.3); Red Blood Count 2.58 M/uL (4.70-6.10); White Blood Count 14.42 K/ul (4.8-10.8)
[2023-02-03] MEDS: DOXAZosin MESYLATE 4 MG TAB PO SCH (20:25)
[2023-02-03] MEDS ORDERED: LANTUS PER UNIT CHARGE SQ SCH (21:00)
[2023-02-04 01:21] LABS: Hematocrit (blood only) 22.3 % (42.0-52.0); Hemoglobin 7.4 g/dl (14.0-18.0); Mean Corpuscular Hemoglobin 31.9 pg (25.0-34.0); Mean Corpuscular Hgb Conc 33.2 g/dL (32.0-36.0); Mean Corpuscular Volume 96.1 fL (80.0-100.0); Mean Platelet Volume 11.1 fL (9.4-12.4); Platelet Count 187 K/uL (130-400); RDW Coefficient of Variation 15.9 % (11.5-14.5); RDW Standard Deviation 54.9 fL (36.4-46.3); Red Blood Count 2.32 M/uL (4.70-6.10); White Blood Count 14.06 K/ul (4.8-10.8)
[2023-02-04] MEDS: CEFEPIME 1,000 MG in SYRINGE 0 ML IV SCH ×2 (04:30→17:43)
[2023-02-04 07:31] LABS: Hemoglobin 7.4 g/dl (14.0-18.0); Mean Corpuscular Hemoglobin 31.9 pg (25.0-34.0); Mean Corpuscular Hgb Conc 33.6 g/dL (32.0-36.0); Mean Corpuscular Volume 94.8 fL (80.0-100.0); Mean Platelet Volume 11.2 fL (9.4-12.4); Platelet Count 187 K/uL (130-400); RDW Coefficient of Variation 15.9 % (11.5-14.5); RDW Standard Deviation 54.8 fL (36.4-46.3); Red Blood Count 2.32 M/uL (4.70-6.10); White Blood Count 13.08 K/ul (4.8-10.8)
[2023-02-04 07:33] LABS: BUN Creatinine Ratio 46.4 (10-20); Calcium 8.4 mg/dl (8.6-10.3); Creatinine Clr Calc Pharmacy 27.9 ml/min; Est GFR (African American) 23.8 ml/min; Est GFR (Non-African American) 20.5 ml/min; Magnesium 2.6 mg/dl (1.7-2.4)
[2023-02-04] MEDS: FLUCONAZOLE 200 MG/100 ML BAG IV SCH (09:12)
[2023-02-04] MEDS: allopurinoL 100 MG TAB PO SCH (09:13)
[2023-02-04] MEDS: carvediloL 12.5 MG TAB PO SCH ×2 (09:13→20:43)
[2023-02-04] MEDS: HYDROCORTISONE SOD 50 MG in SYRINGE 0 ML IV SCH (09:13)
[2023-02-04] MEDS: INSULIN ASPART PER UNIT CHARGE SC SCH ×4 (09:13→20:42)
[2023-02-04] MEDS: ASPIRIN 81 MG ECTAB PO SCH (09:13)
[2023-02-04] MEDS: ISOSORBIDE MONO EXTENDED REL 30 MG TABCR PO SCH ×2 (09:13→20:43)
[2023-02-04] MEDS: PANTOprazole 40 MG TAB PO SCH ×2 (09:13→20:43)
--- NOTE | 2023-02-04 10:42 | Gastrointestinal Consultation ---
Date of Consultation February 04, 2023 Assessment & Plan (1) Anemia: (2) Acute kidney injury superimposed on CKD: (3) Cellulitis: Pt is a 78 yo male w weakness, bilateral LE swelling, noted to have IDALMIS on CKD, LE cellulitis and sacral ulcer. Worsening anemia w recent endoscopic evals wo obvious GI bleeding source. Was having dark stools for "month" but no over GI bleeding signs such as melena or hematochezia since last endoscopy. - Defer repeat endoscopies - Recommend outpt VCE evaluation - Monitor blood ct and transfuse prn - Protonix 40mg BID - [facility] [facility] resumes coverage 02/05; recall GI prn Supervising Physician Co-Signing Physician Notes I saw and evaluated the patient on 02/04/2023 with ABEL Haq and agree with her findings nad plan of care. GI consulted for anemia. He just had an EGD and colonoscopy done last week by Dr. Ramos. EGD unremarkable, colonoscopy with one polyp. No source found to explain patient's anemia. Patient has no overt signs of GI bleeding including melena, hematemesis, or hematochezia and patient and report last BM hasn't even been for 1 week. He has other reasons to have anemia including CKD, decubitus ulcer (chronic illness), and cellulitis. No benefit to repeat e ndoscopy at this time. Would recommend outpatient capsule endoscopy. Trend H/H and transfuse for hgb <7. PPI 40 mg BID. No plans for any inpatient endoscopy. Yanira Hooper, DO Gastroenterology and Hepatology History of Present Illness Reason for Consultation: Anemia, ? GI bleeding Requesting Physician: Dr. Carter Helms Attending Physician: Dr. Yanira Hooper History of Present Illness Pt is a 78 yo male w PMHx of CKD, chronic anemia, HTN, asthma, DM II, LBBB, giant cell arteritis on Prednisone taper, who presented w c/o increased weakness, sacral ulcer and edema on bilateral LE. On evaluation, noted to have cellulitis on bilateral LE, IDALMIS on CKD, and worsening anemia Hgb 7 (baseline 8-9 earlier this month). He was recently admitted earlier this month for similar issues, and concerns for GI bleeding, anemia. Had EGD and colonoscopy done on 01/27 by [facility], wo acute GI bleeding source findings. Pt's reported that since his endoscopic evals, he hasn't been eating/drinking much. He was having dark stools for 'months' but none since last week. He currently denies abd pain, n/v. Pt has been on Prednisone taper, ASA 81mg daily but no anticoagulants. Was taking Ibuprofen up till couple of day prior to admission. Allergies Allergy/AdvReac Type Severity Reaction Status Date / Time atorvastatin Allergy Intermediate MUSCLE Verified 01/29/23 09:03 ACHES exenatide Allergy Intermediate SWELLING Verified 01/29/23 09:03 metformin Allergy Intermediate KIDNEY Verified 01/29/23 09:03 DISEASE phenol Allergy Intermediate SWELLING Verified 01/29/23 09:03 pioglitazone Allergy Intermediate SWELLING Verified 01/29/23 09:03 simvastatin Allergy Intermediate MUSCLE Verified 01/29/23 09:03 ACHES ether Allergy Mild n/v Verified 01/29/23 09:03 Home Medications Medication Instructions Recorded Confirmed Type nitroglycerin 0.3 mg sublingual 0.3 mg sublingual Q5M PRN chest 07/11/20 02/02/23 Rx tablet (Nitrostat) pain #30 tabs flash glucose sensor (FreeStyle #1 ea 11/17/21 01/29/23 Rx Saleem 2 Sensor kit) levalbuterol tartrate 45 2 inh inhalation Q6H PRN shortness 05/19/22 02/02/23 Rx mcg/actuation aerosol inhaler of breath #15 grams (Xopenex HFA) alirocumab 75 mg/mL subcutaneous 75 mg subcut Q14D #1 mL 06/23/22 02/02/23 Rx pen injector (Praluent Pen) isosorbide mononitrate 30 mg 30 mg PO BID #180 tabs 07/22/22 02/02/23 Rx tablet,extended release 24 hr azelastine 137 mcg (0.1 %) nasal 2 spray intranasal BID PRN nasal 07/29/22 02/02/23 Rx spray aerosol congestion #30 mL Tresiba FlexTouch U-200 200 32 unit (0.16 mL) subcut HS 30 10/06/22 02/02/23 Rx unit/mL (3 mL) subcutaneous pen days #4.8 Boxes (insulin degludec) allopurinol 100 mg tablet 100 mg PO QAM 10/14/22 02/02/23 History aspirin 81 mg tablet,delayed 81 mg PO QAM 10/14/22 02/02/23 History release (Adult Low Dose Aspirin) fluticasone propionate 50 2 spray intranasal UD PRN 10/14/22 02/02/23 History mcg/actuation nasal Congestion spray,suspension nystatin 100,000 unit/gram topical 1 applic topical DAILY PRN Rash 10/14/22 02/02/23 History powder polyethylene glycol 3350 17 gram 17 g PO HS 10/14/22 02/02/23 History oral powder packet (Miralax) acetaminophen 500 mg tablet 1,000 mg PO TID PRN Pain 10/22/22 02/02/23 History (Tylenol Extra Strength) doxazosin 4 mg tablet (Cardura) 4 mg PO HS 10/28/22 02/02/23 History omeprazole 20 mg capsule,delayed 20 mg PO BID #180 caps 10/30/22 02/02/23 Rx release pen needle, diabetic 32 gauge x #150 ea 11/17/22 01/29/23 Rx 5/32" (BD Denia 2nd Gen Pen Needle) insulin aspart U-100 100 unit/mL 33 unit (0.33 mL) subcut TIDM #2 11/20/22 02/02/23 Rx (3 mL) subcutaneous pen (Novolog Boxes FlexPen U-100 Insulin aspart) Lactobacillus rhamnosus-Bifidobac. 1 cap PO QAM 12/03/22 02/02/23 History animalis 3 billion cell capsule ([employer]) miscellaneous medical supply #2 ea 01/06/23 01/29/23 Rx (Anti-Embolism Stockings) carvedilol 12.5 mg tablet 12.5 mg PO BID 01/20/23 02/02/23 History ergocalciferol (vitamin D2) 1,250 1,250 mcg PO Q30D 01/20/23 02/02/23 History mcg (50,000 unit) capsule nystatin 100,000 unit/mL oral 5 ml PO UD 01/20/23 02/02/23 History suspension olmesartan 40 mg tablet 40 mg PO QAM 01/20/23 02/02/23 History torsemide 40 mg tablet 40 mg PO UD 01/20/23 02/02/23 History insulin NPH isoph U-100 human 100 12 unit subcut QAM 01/29/23 02/02/23 History unit/mL (3 mL) subcutaneous pen (Novolin N FlexPen) prednisone 20 mg tablet 15 mg PO QAM 01/29/23 02/02/23 History Patient History Medical History Arthritis Wound of back currently seeing wound care for small wound on lower back/top of buttocks, next visit w/wound dr will be on 01/26/23 Weakness generalized currently trying to get in home therapy Temporal arteritis LYNDA (obstructive sleep apnea) no device Type 2 diabetes mellitus IDDM Umbilical hernia present Eye problem right/hole present in this eye for yrs/follows Dr. Mclean - 2 mon ago vessel broken & healing/recent f/u2 weeks ago and told eye is fine. History of anesthesia reaction age 2 w/ tonsillectomy/ ether : n/v. Unique anesthetic considerations on preoperative anesthesia assessment becomes anxious when lies flat/worries he will be short of breath Snoring Positive colorectal cancer screening using Cologuard test seeing GI specialist after up coming procedure Gallstones present for several yrs Gastroparesis Hx of gout Hyperlipidemia Chronic rhinitis Chronic idiopathic urticaria hx Chronic kidney disease, stage 4 (severe) follows with Dr. Lance, Baseline Cr 2.4 w/ EGFR 24 cc/min Chronic diastolic congestive heart failure follows with Dr. Issa Bilateral tinnitus Sensorineural hearing loss (SNHL) of both ears wears hearing aids both ears Diabetic peripheral neuropathy associated with type 2 diabetes mellitus MRSA (methicillin resistant staph aureus) culture positive no known hx that is aware of Left bundle-branch block chronic Hypertension Anemia Surgical History History of tooth extraction History of myringotomy History of carpal tunnel surgery left History of surgical removal of skin lesion History of tonsillectomy Family History Father Bladder cancer Diabetes Mother Uterine cancer Breast cancer Heart disease Hypertension Denies family history of Ovarian cancer Prostate cancer Coronary heart disease Myocardial infarction Colorectal cancer Social History Smoking Status: Former smoker Tobacco Type: Cigarettes Age Started Using Tobacco: 14; Age Quit Using Tobacco: 24; packs per day: 3; Second Hand Exposure: No; Do You Dip or Chew Tobacco: No; Hx Alcohol Use: No Hx Substance Use: No Preferred Language: Maltese Communication Ability: Effective Communication Ability Comment: [place] - uses hearing aides and microphone /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 Feels Safe at Home: Yes Childhood Exposure to Second-Hand Smoke: No Diet: diabetic and regular caffeine: Yes during the past year weight has: decreased > 10 lbs Dental Care, Regularly: No Physical Activity Frequency: Daily Seatbelt Use: never Sunscreen Use: No Assistive Devices: Walker and Wheelchair Review of Systems Review of Systems: All systems reviewed & are unremarkable except as noted in HPI & below Physical Exam Constitutional: WD/WN, vitals as above well groomed, cooperative and comfortable Eyes: PERRL, conjunctivae normal, anicteric sclerae ENMT: external ear and nose normal, oropharynx normal Respiratory: normal respiratory effort, lungs clear to auscultation Cardiovascular: RRR, no murmur, no edema Gastrointestinal (Abdomen): normal bowel sounds, soft, nontender, no hepatosplenomegaly Skin: no rashes, warm and dry no jaundice Neurologic: Motor/Sensory: no asterixis Psychiatric: A+Ox3, euthymic affect Lymphatic: no lymphedema Results & Data Vital Signs (Past 12 Hours) Vital Signs Temp Pulse Pulse Resp BP Pulse Ox O2 Del Method 02/04/23 08:04 Room Air 02/04/23 07:19 70 02/04/23 07:14 36.6 C 69 18 155/67 H 98 Room Air 02/04/23 03:18 36.5 C 71 18 158/70 H 98 Room Air 02/04/23 01:06 63 02/03/23 22:53 36.3 C L 73 18 148/70 H 99 Room Air (1) Anemia Anemia type: unspecified type Qualified Code(s): D64.9 - Anemia, unspecified (3) Cellulitis Laterality: right Site of cellulitis: extremity Site of cellulitis of extremity: lower extremity Qualified Code(s): L03.115 - Cellulitis of right lower limb
[2023-02-04 11:13] LABS: C Reactive Protein 15.63 mg/dl (0-0.5)
[2023-02-04 11:32] LABS: Ferritin 466.5 ng/ml (8-388)
--- NOTE | 2023-02-04 13:47 | XCELERA ---
[id number] [id number]
[2023-02-04] MEDS ORDERED: SODIUM CHLORIDE 0.9% 250 ML IV PRN (15:56)
[2023-02-04] MEDS ORDERED: DAPTOmycin 375 MG in SYRINGE 0 ML IV SCH (20:00)
[2023-02-04] MEDS: DOXAZosin MESYLATE 4 MG TAB PO SCH (20:43)
--- NOTE | 2023-02-04 20:56 | Hospitalist Progress Note ---
Date of Service February 04, 2023 Assessment & Plan (1) Anemia: Plan: Hemodynamically stable Hemoglobin recently with a baseline around 8, was last elevated at 9.4 in 01/17 Is iron deficient and was pending an iron transfusion 02/04, this is held pending treatment of suspected active infection and cellulitis. Patient should have at least 1 dose of this prior to discharge No signs of active bleeding Stool occult pending Continue clear diet, may advance if no signs of decreasing hemoglobin/Hemoccult negative - Reticulocyte count 5.9%, hematocrit 24.1, reticulocyte index 1.69 indicating hypoproliferation. Suspect due to iron deficiency. PPI twice daily Patient will need transfusion of PRBC. will monitor. Discussed with family. Consulted GI for possible scope. (2) Cellulitis of right leg: Plan: - Right leg with 24 hours of acute warmth, tenderness, demarcated erythema asymmetrical compared to the left. With associated leukocytosis and elevated procalcitonin Cefepime/daptomycin ordered Continue broad coverage due to comorbidities, narrow once clinically improving. High sensitive troponin was mildly elevated suspect demand ischemia, this is downtrending -Wound care consulted for both unna boots and sacral wound. Sacral wound is without evidence of superimposed cellulitis/infection (3) Acute kidney injury superimposed on CKD: Plan: Baseline creatinine around 3, acutely elevated to 3.62 on admission and now beginning to down trended Patient suspected to have third spacing in the setting of infection Olmesartan held Continue oral fluids, hemodynamically stable Trend BMP daily Will likely need diuresis once infection is treated and third spacing improves (4) Stage III pressure ulcer of right buttock: Plan: -Wound care nurse consult placed -Does not appear infected on exam today -Turn and position q2h ordered (5) Temporal arteritis: Plan: -Has been on a slow Prednisone taper since July per his -Was recently reduced from 20 mg PO daily to 15 with first dose yesterday -Gave 100 mg IV solu-medrol on admission, continue on 50 mg IV every 6 Blood pressure is rapidly improved, will space to twice daily at this time and then continue to down titrate to lower breast dose as clinically (6) Esophageal candidiasis: Plan: -Has been treated for esophageal candidiasis with Oral Nystatin for months per patient's without improvement -Noted to have signs of ongoing infection on exam today IV fluconazole continued, total course 14-day (7) Bilateral lower extremity edema: Plan: -Known chronic venous insufficiency - states that patient doesn't like to have CHI stockings in place -Stressed the importance of CHI stockings, patient is willing to try -BL CHI's ordered -Holding torsemide due to IDALMIS and suspected intravascular depletion (8) Weakness: Plan: -Likely multifactorial with baseline poor health exacerbated by cellulitis, worsening anemia, and IDALMIS -Could also have a component of adrenal insufficiency -Will continue treatment of his acute illnesses -Stress dose steroids started -PT/OT consults placed -Fall precautions (9) Type 2 diabetes mellitus, with long-term current use of insulin: Plan: -Monitor BSG ACHS goal is 110-160 while on stress dosed steroids -Will start 15 units lantus BID -CF of 40 ACHS, hold carb ratio while on clear liquid diet -Pharmacy glycemic consult placed (10) Hypertension: Plan: -Stable -Holding torsemide and Olmesartan for now with IDALMIS -Continue Carvedilol Admission and Anticipated Discharge Date Admission Date: February 02, 2023 Subjective Patient reports no new symptoms. Review of Systems Review of Systems: All systems reviewed & are unremarkable except as noted in HPI & below Physical Exam Physical Exam: General: A&Ox3. NAD. Cooperative. HEENT: Atraumatic, normocephalic. Vision and hearing grossly intact Pulm: CTAB A&P. -wheezes, -rales, -rhonchi. Symmetrical chest rise. No increased work of breathing. No respiratory distress. Cardiac: RRR, -mrg. Radial pulses intact and symmetrical. Skin: 3X areas of superficial skin erosion and sacral pressure ulcers. Covered with dressing, no signs of superimposed cellulitis on admission Abdominal: Nontender, nondistended, soft. BS present. Extremities: 2+ pitting edema in the lower extremities bilaterally, right lower extremity with acute and asymmetric warmth, erythema, and tenderness consistent with cellulitis sensation soft touch intact in hands and feet bilaterally Results & Data Results & Data Vital Signs (Past 12 Hours) Vital Signs Temp Pulse Pulse Resp BP BP Pulse Ox 02/04/23 19:46 36.4 C L 66 16 168/74 H 98 02/04/23 19:16 36.4 C L 68 18 142/86 H 99 02/04/23 19:00 02/04/23 17:41 36.8 C 68 18 147/66 H 99 02/04/23 17:11 36.4 C L 62 18 132/67 98 02/04/23 16:56 36.3 C L 69 18 129/56 L 99 02/04/23 16:40 36.3 C L 71 18 148/66 H 98 02/04/23 16:00 65 02/04/23 15:02 36.8 C 62 18 142/60 H 99 02/04/23 11:21 36.4 C L 65 18 165/71 H 99 Pulse Ox O2 Del Method O2 Del Method 02/04/23 19:46 Room Air 02/04/23 19:16 02/04/23 19:00 95 Room Air 02/04/23 17:41 02/04/23 17:11 02/04/23 16:56 02/04/23 16:40 02/04/23 16:00 02/04/23 15:02 Room Air 02/04/23 11:21 Room Air PG Care Time/CCT Total # of Minutes Spent Total Time Spent with Patient: Total time spent is greater than 50% in coordination of care (as documented) at patient's floor/unit and/or counseling patient: Coding Level of Care Code 00514 SUB INP/OBS CARE 3/50MIN Diagnoses Anemia D64.9 Anemia type: unspecified type Cellulitis of right leg L03.115 Acute kidney injury superimposed on CKD N17.9; N18.9 Stage III pressure ulcer of right buttock L89.313 Temporal arteritis M31.6 Esophageal candidiasis B37.81 Bilateral lower extremity edema R60.0 Weakness R53.1 Type 2 diabetes mellitus, with long-term current use of insulin E11.9; Z79.4 Primary hypertension I10 Hypertension type: primary hypertension Time Spent (min) 50 (1) Anemia Anemia type: unspecified type Qualified Code(s): D64.9 - Anemia, unspecified (10) Hypertension Hypertension type: primary hypertension Qualified Code(s): I10 - Essential (primary) hypertension
[2023-02-04] MEDS ORDERED: LANTUS PER UNIT CHARGE SQ SCH (21:00)
[2023-02-05] MEDS: CEFEPIME 1,000 MG in SYRINGE 0 ML IV SCH (03:21)
[2023-02-05 06:33] LABS: Mean Corpuscular Hemoglobin 31.4 pg (25.0-34.0); Mean Corpuscular Hgb Conc 33.3 g/dL (32.0-36.0); Mean Corpuscular Volume 94.1 fL (80.0-100.0); Mean Platelet Volume 10.7 fL (9.4-12.4); Platelet Count 179 K/uL (130-400); RDW Coefficient of Variation 16.2 % (11.5-14.5); RDW Standard Deviation 56.3 fL (36.4-46.3); Red Blood Count 2.87 M/uL (4.70-6.10); White Blood Count 11.11 K/ul (4.8-10.8)
[2023-02-05 06:56] LABS: BUN Creatinine Ratio 41.9 (10-20); C Reactive Protein 11.16 mg/dl (0-0.5); Calcium 8.4 mg/dl (8.6-10.3); Creatinine Clr Calc Pharmacy 27.1 ml/min; Est GFR (African American) 22.9 ml/min; Est GFR (Non-African American) 19.8 ml/min; Magnesium 2.6 mg/dl (1.7-2.4); Potassium 3.9 mmol/L (3.5-5.1)
[2023-02-05] MEDS: PANTOprazole 40 MG TAB PO SCH (08:19)
[2023-02-05] MEDS: ASPIRIN 81 MG ECTAB PO SCH (08:20)
[2023-02-05] MEDS: FLUCONAZOLE 200 MG/100 ML BAG IV SCH (08:20)
[2023-02-05] MEDS: ISOSORBIDE MONO EXTENDED REL 30 MG TABCR PO SCH (08:20)
[2023-02-05] MEDS: allopurinoL 100 MG TAB PO SCH (08:20)
[2023-02-05] MEDS: carvediloL 12.5 MG TAB PO SCH (08:20)
[2023-02-05] MEDS ORDERED: HYDROCORTISONE SOD 50 MG in SYRINGE 0 ML IV SCH (09:00)
[2023-02-05] MEDS ORDERED: predniSONE 20 MG TAB PO SCH (09:00)
[2023-02-05] MEDS ORDERED: INSULIN HUMAN NPH SC SCH (09:00)
[2023-02-05] MEDS: INSULIN ASPART PER UNIT CHARGE SC SCH ×2 (09:47→13:55)
[2023-02-05] MEDS ORDERED: IRON SUCROSE 200 MG in 0.9 % SODIUM CHLORIDE 100 ML IV ONE (11:33)
[2023-02-05] MEDS ORDERED: LACTATED RINGER'S 1,000 ML IV SCH (11:45)
--- NOTE | 2023-02-05 13:54 | Pharmacy Report ---
Pharmacy Glycemic Short Note 2 - Date of Service February 05, 2023 - Glycemic Short BSG Results (Last 24 hours): 02/04/23 02/04/23 02/05/23 17:01 20:31 06:13 Glucose 71 POC Glucose 203 H 208 H 02/05/23 02/05/23 07:37 11:51 Glucose POC Glucose 85 189 H OUTPATIENT ANTIDIABETIC REGIMEN: * Tresiba 32 units HS * NPH 12 units * Novolog 33 units TIDM ASSESSMENT: 02/05/23 * BSGs yesterday were [phone] mg/dL. Patient received 56 units of insulin (30 units of basal and 26 units of bolus). * Fasting today is 85 mg/dL. Patient changed to prednisone 20 mg PO daily. * Decrease Lantus to 15 units (50% reduction) due to steep decline in fasting. * Add NPH 20 units (0.2 units/kg) for prednisone hyperglycemia. * Continue Novolog. BACKGROUND * Mr Broderick is a 78 y/o M with a PMH of IDDM who presents with weakness. He has been on a prolonged prednisone taper. Most recently he has been on prednisone 15 mg daily. * Patient initially started on hydrocortisone 50 mg IV q6 hours. This was c hanged to q12 today. * BSGs today are 195-207 mg/dL. * Patient received Lantus 15 units yesterday. Gave 30 units this AM (15 units as "make up" for half dose yesterday + 15 units for steroid hyperglycemia). * Will have scale this evening depending on BSG. * Novolog weight-based stress 3. Will utilize tighter CR since patient requires more Novolog with meals as demonstrated by home regimen. PLAN FOR INPATIENT GLYCEMIC CONTROL: * Basal insulin * Lantus 15 units SQ HS * Bolus insulin * NovoLog per scale ACHS or Q6hrs while NPO * Goal Range: Low 110 mg/dL - High 140 mg/dL * Correction Factor: 25 mg/dL/unit * Nutritional / Prandial insulin per carb ratio of 1 unit per 4 grams CHO consumed
--- NOTE | 2023-02-05 15:46 | Discharge Summary ---
Date of Service February 05, 2023 Admission HPI Per Admitting Provider David is a 78 year old male with a PMH significant for CKD, chronic anemia, hypertension, HFpEF, asthma, diabetes mellitus, left bundle branch block, and giant cell arteritis (Currently on Prednisone tape) who presented to the [facility] ED via EMS on 02/02 with complaints of increased weakness, sacral ulcer, and worsening edema to the BL LE's. They called his PCP today as he was reportedly supposed to have an iron infusion in the near future and was directed to go to the ED for further evaluation. He was initially tachycardic at 100 BPM but otherwise stable. Labs were significant for a leukocytosis of 21 with neutrophil predominance of 19 (both increased since 01/28), Hgb of 8.1 (down from 12 as of October), Cr of 3.62 (baseline is near 3.0), BUN of 171, initial high sen trop of 31 --> 29 on 2 hour repeat, procal of 0.62. Chest xray was read as "Cardiomegaly with no acute cardiopulmonary abnormality identified.". Prior to admission the patient was given a dose of Cefepime and 1L NSS. The patient was recently admitted on 01/17 with same day discharge for concerns of acute GI bleed, anemia, BL LE swelling, and stage 2 pressure ulcer of the sacrum. Per the discharge summary, the patient has been on a steroid taper due to giant cell arteritis and has been on 20 mg PO daily. He was reportedly taking BID ibuprofen on top of his daily baby aspirin, he stopped the ibuprofen approximately 2 days prior to his last admission. His initial Hemoccult test was inconclusive with 2 repeats being negative. He remained stable and did not require transfusion while admitted. The patient did not want to stay for inpatient GI workup and was discharged home off Ibuprofen but still on Aspirin and Prednisone. At the time of the exam the patient was sitting in bed in no acute distress with his /Primary Caregiver sitting bedside, history was obtained from both. The patient's states that since getting his EGD and Colonoscopy on 01/27 the patient has on progressive generalized weakness. Normally he is able to get out of bed with his 's assistance and ambulate with the use of a walker. Today, his states that he was too weak to get out of bed. He appetite has been good. He is no longer taking Ibuprofen. He is currently on 15 mg PO Prednisone daily. They deny recent fever, chills, chest pain, cough, SOB, and pain, nausea, vomiting, diarrhea, dysuria, hematuria, and recent trauma. When asked, they state that his stool has been "dark" for "months" as noted on his last admission. They deny bright red blood on recent BM's. His states that the patient right LE became acutely erythematous earlier today. She confirms that it usually has chronic skin changes from venous stasis like his LLE. When asked, they explain that he has been treated with oral Nystatin for chronic esophageal Candidiasis for "months" without improvement. He is a full code and his is his primary decision maker if he is unable to make decisions himself. His is asking if we can order him something for sleep as he has been having ongoing insomnia for the past few months, she confirms he takes his prednisone in the am. Principal Diagnosis anemia Discharge Exam General: A&Ox3. NAD. Cooperative. HEENT: Atraumatic, normocephalic. Vision and hearing grossly intact Pulm: CTAB A&P. No increased work of breathing. No respiratory distress. Cardiac: RRR, -mrg. Radial pulses intact and symmetrical. Skin: 3X areas of superficial skin erosion and sacral pressure ulcers. Covered with dressing, no signs of superimposed cellulitis on admission Abdominal: Nontender, nondistended, soft. BS present. Extremities: 2+ pitting edema in the lower extremities bilaterally, right lower extremity withdecreased warmth, erythemasoft touch intact in hands and feet bilaterally Discharge Data Allergies Allergy/AdvReac Type Severity Reaction Status Date / Time atorvastatin Allergy Intermediate MUSCLE Verified 01/29/23 09:03 ACHES exenatide Allergy Intermediate SWELLING Verified 01/29/23 09:03 metformin Allergy Intermediate KIDNEY Verified 01/29/23 09:03 DISEASE phenol Allergy Intermediate SWELLING Verified 01/29/23 09:03 pioglitazone Allergy Intermediate SWELLING Verified 01/29/23 09:03 simvastatin Allergy Intermediate MUSCLE Verified 01/29/23 09:03 ACHES ether Allergy Mild n/v Verified 01/29/23 09:03 Consultations 02/02/23 16:18 ED Decision to Admit Stat 02/04/23 09:47 Consult Gastroenterology Routine Hospital Course (1) Anemia: Hemodynamically stable Hemoglobin recently with a baseline around 8, was last elevated at 9.4 in 12/10 Is iron deficient and was pending an iron transfusion 02/04, this is held pending treatment of suspected active infection and cellulitis. Patient should have at least 1 dose of this prior to discharge No signs of active bleeding Stool occult pending Continue clear diet, may advance if no signs of decreasing he moglobin/Hemoccult negative - Reticulocyte count 5.9%, hematocrit 24.1, reticulocyte index 1.69 indicating hypoproliferation. Suspect due to iron deficiency. PPI twice daily -s/p one unit transfusion of PRBC Discussed with family. Consulted GI: recommend outpatient capsule endoscopy. will discharge on oral iron (2) Cellulitis of right leg: - Right leg with 24 hours of acute warmth, tenderness, demarcated erythema asymmetrical compared to the left. With associated leukocytosis and elevated procalcitonin Cefepime/daptomycin ordered Continue broad coverage due to comorbidities, narrow once clinically improving. High sensitive troponin was mildly elevated suspect demand ischemia, this is downtrending -Wound care consulted for both unna boots and sacral wound. Sacral wound is without evidence of superimposed cellulitis/infection will discharge on doxycline/cephalexin (3) Acute kidney injury superimposed on CKD: Baseline creatinine around 3, acutely elevated to 3.62 on admission and now beginning to down trended Patient suspected to have third spacing in the setting of infection Olmesartan held will defer to PCP when to restart. Continue oral fluids, hemodynamically stable (4) Stage III pressure ulcer of right buttock: -Wound care nurse consult placed -Does not appear infected on exam today -Turn and position q2h ordered (5) Temporal arteritis: -Has been on a slow Prednisone taper since July per his -Was recently reduced from 20 mg PO daily to 15 with first dose yesterday -Gave 100 mg IV solu-medrol on admission, continue on 50 mg IV every 6 titrated back to regular home dose (6) Esophageal candidiasis: -Has been treated for esophageal candidiasis with Oral Nystatin for months per patient's without improvement -Noted to have signs of ongoing infection on exam today IV fluconazole continued, total course 14-day (7) Bilateral lower extremity edema: -Known chronic venous insufficiency - states that patient doesn't like to have CHI stockings in place -Stressed the importance of CHI stockings, patient is willing to try -BL CHI's ordered -Held torsemide due to IDALMIS and suspected intravascular depletion (8) Weakness: -Likely multifactorial with baseline poor health exacerbated by cellulitis, worsening anemia, and IDALMIS -Could also have a component of adrenal insufficiency -Will continue treatment of his acute illnesses -Stress dose steroids started -PT/OT consults placed -Fall precautions (9) Type 2 diabetes mellitus, with long-term current use of insulin: -Monitor BSG ACHS goal is 110-160 while on stress dosed steroids -Will start 15 units lantus BID -CF of 40 ACHS, hold carb ratio while on clear liquid diet -Pharmacy glycemic consult placed resume home meds (10) Hypertension: -Stable -Holding torsemide and Olmesartan for now with IDALMIS resume torsemide as an outpatient -Continue Carvedilol Total Time Total Time Spent Total Time Spent (In Minutes): 32 Discharge Plan Discharge Items Patient Disposition: Home - Self-Care Reason For Visit: GENERALIZED WEAKNESS, WORSENING ANEMIA, AMBULATORY Discharge Diagnosis: generalized weakness, worsening anemia, ambulatory Activity: Resume your previous activity Non-emergency contact: Primary Care Provider Call non-emergency contact if: you have any medication questions Follow-up/Referrals: Mariusz Bustamante MD [Primary Care Provider] - 02/15/23 3:00 pm (APPT. WITH Margaret DOTSON PA-C) Diet: Carb Consistent or DM2 and Heart Healthy Addtl Attending Provider Instructions: Recommend following up cephalexin 500 mg 4 times a day for 7 days starting tonight, try to take it 6 hours apart. Also take doxycycline 100 mg twice a day, take next dose tomorrow night. WIll recommend followup with PCP in 1 week to recheck blood work. Pending Studies at Discharge: No Stand-Alone Forms: [facility] [place], Smoking Cessation Medications and DC Order Prescriptions: New fluconazole [Diflucan] 100 mg Tablet 200 mg PO Q24H Qty: 14 0RF melatonin 3 mg Tablet 6 mg PO HS PRN (Reason: insomnia) Qty: 30 0RF cephalexin 500 mg tablet 500 mg PO QID 7 Days Qty: 28 0RF Rx Instructions: Take first dose PM of 02/05 Try to take 6 hours apart doxycycline hyclate 100 mg tablet 100 mg PO BID 5 Days Qty: 10 0RF Rx Instructions: Take first dose on 02/06 PM ferrous sulfate 325 mg (65 mg iron) tablet 325 mg PO Q OTHER DAY Qty: 30 0RF Continued (DME) FreeStyle Saleem 2 Sensor Kit See Rx Instructions .Route Qty: 1 0RF Rx Instructions: Change sensor every 14 days levalbuterol tartrate [Xopenex HFA] 45 mcg/actuation HFA aerosol inhaler 2 inh INH Q6H PRN (Reason: shortness of breath) Qty: 15 2RF isosorbide mononitrate 30 mg tablet extended release 24 hr 30 mg PO BID Qty: 180 3RF insulin degludec [Tresiba FlexTouch U-200] 200 unit/mL (3 mL) insulin pen 32 unit SQ HS 30 Days Qty: 4.8 5RF Patient Comments: 16 units omeprazole 20 mg capsule,delayed release(DR/EC) 20 mg PO BID Qty: 180 3RF (DME) pen needle, diabetic [BD Denia 2nd Gen Pen Needle] 32 gauge x 5/32" needle See Rx Instructions miscellaneous .MEDSUPPLY Qty: 150 5RF Rx Instructions: change new pen needle 5x a day insulin aspart U-100 [Novolog FlexPen U-100 Insulin] 100 unit/mL (3 mL) insulin pen 33 unit SQ TIDM Qty: 2 3RF Patient Comments: 4 units Rx Instructions: Inject per sliding scale with meals up to 33 units daily (DME) Anti-Embolism Stockings Misc See Rx Instructions .Route Qty: 2 0RF Rx Instructions: As directed anti-embolism stockings nitroglycerin [Nitrostat] 0.3 mg tablet, sublingual 0.3 mg sublingual Q5M PRN (Reason: chest pain) Qty: 30 3RF Patient Comments: has never needed it Rx Instructions: do not exceed 3 doses per episode Novolin N FlexPen 100 unit/mL (3 mL) insulin pen 12 unit subcut QAM Patient Comments: 14 units Rx Instructions: To start 23 units in the morning with Prednisone. Titrate up per protocol up to 46 units every morning. azelastine 137 mcg (0.1 %) aerosol,spray 2 spray intranasal BID PRN (Reason: nasal congestion) Qty: 30 11RF Rx Instructions: administer into each nostril acetaminophen [Tylenol Extra Strength] 500 mg tablet 1,000 mg PO TID PRN (Reason: Pain) Praluent Pen 75 mg/mL pen injector 75 mg subcut Q14D Qty: 1 6RF Patient Comments: most recent dose 01/15/23 Rx Instructions: inject subcutaneously into abdomen, thigh, or upper arm; rotate sites prednisone 20 mg tablet 15 mg PO QAM Patient Comments: on 01/25, will go down to 15mg daily for 2 weeks allopurinol 100 mg tablet 100 mg PO QAM aspirin [Adult Low Dose Aspirin] 81 mg tablet,delayed release (DR/EC) 81 mg PO QAM fluticasone propionate 50 mcg/actuation spray,suspension 2 spray intranasal UD PRN (Reason: Congestion) Rx Instructions: administer into each nostril polyethylene glycol 3350 [Miralax] 17 gram Powder In Packet 17 g PO HS doxazosin [Cardura] 4 mg tablet 4 mg PO HS [employer] 3 billion cell Capsule 1 cap PO QAM carvedilol 12.5 mg tablet 12.5 mg PO BID ergocalciferol (vitamin D2) 1,250 mcg (50,000 unit) capsule 1,250 mcg PO Q30D Rx Instructions: TAKE THIS MED MONTHLY ON THE FIRST WEDNESDAY OF THE MONTH. torsemide 40 mg tablet 40 mg PO UD Rx Instructions: Alternate 40 mg daily and 20 mg HS Discontinued nystatin 100,000 unit/gram powder 1 applic TOP DAILY PRN (Reason: Rash) nystatin 100,000 unit/mL suspension 5 ml PO UD Rx Instructions: swish and spit out olmesartan 40 mg tablet 40 mg PO QAM Discharge Orders: Discharge Order (Routine); Ordered 02/05/23 Ordered By: Carter Helms Admission Data Admit Date/Time: 02/02/23 17:11 Attending Provider: Carter Helms Admit Provider: Hiren Morocho Primary Care Provider: Mariusz Bustamante Other Providers: Hiren Morocho; Rafi Ramos Other Interventions: Discharge Summary Assessment (RN) Last Done: 02/05/23 17:13 Coding Level of Care Code 80272 INP/OBS DISCH >30 MIN Diagnoses Anemia D64.9 Anemia type: unspecified type Cellulitis of right leg L03.115 Acute kidney injury superimposed on CKD N17.9; N18.9 Stage III pressure ulcer of right buttock L89.313 Temporal arteritis M31.6 Esophageal candidiasis B37.81 Bilateral lower extremity edema R60.0 Weakness R53.1 Type 2 diabetes mellitus, with long-term current use of insulin E11.9; Z79.4 Primary hypertension I10 Hypertension type: primary hypertension
[2023-02-05] MEDS ORDERED: FLUCONAZOLE 100 MG TAB PO SCH (19:00)
[2023-02-05] MEDS ORDERED: LANTUS PER UNIT CHARGE SQ SCH (21:00)
== END 2023-02-05 18:20 | disposition home health service (06) | DRG 811 ==
LOC: ED 12:29 → SUATTDRO 17:11 → EDINP 17:11 → 2N 22:40

== ENCOUNTER 2024-05-18 13:05 | Inpatient (IN) ==
--- NOTE | 2024-05-18 14:34 | XRay Report ---
XR chest 1V portable CLINICAL HISTORY: sob COMPARISON STUDY: 04/14/2024 FINDINGS: Compared with a prior examination, mild vascular congestion is progressive. There is a smal l amount of fluid in the minor fissure. Heart size remains enlarged. A focal area of increased parenc hymal density is present in the right cardiophrenic angle. IMPRESSION: Suspected CHF. Right basilar infiltrate not excluded. ACT 112: Negative or not required by law. Electronically signed by: Snow Beltre M.D. 05/18/2024 2:33 PM
[2024-05-18] MEDS: CALCIUM GLUCONATE 1,000 MG/60 ML BAG IV STA (14:35)
[2024-05-18 14:53] LABS: Albumin Globulin Ratio 1.4 (0.9-2); Albumin Level 3.7 gm/dl (3.4-5.0); BUN Creatinine Ratio 20.9 (10-20); Bilirubin,Total 0.6 mg/dl (0.2-1.0); Calcium 8.6 mg/dl (8.6-10.3); Creatinine Clr Calc Pharmacy 17.3 ml/min; Globulin 2.7 gm/dl (2.5-4.0); Magnesium 2.5 mg/dl (1.7-2.4); Potassium 3.1 mmol/L (3.5-5.1); Total Protein 6.4 gm/dl (6.0-8.3)
[2024-05-18 14:54] LABS: Troponin I High Sensitivity 18.6 pg/ml (0-20)
[2024-05-18 14:57] LABS: Basophils # (auto) 0.03 K/uL (0.00-0.20); Basophils % (auto) 0.4 %; Eosinophils # (auto) 0.19 K/uL (0.00-0.50); Eosinophils % (auto) 2.5 %; Hematocrit (blood only) 28.2 % (42.0-52.0); Hemoglobin 9.4 g/dl (14.0-18.0); Immature Granulocytes # (auto) 0.03 K/uL (0.01-0.20); Immature Granulocytes % (auto) 0.4 %; Lymphocytes # (auto) 0.76 K/uL (1.20-3.40); Lymphocytes % (auto) 9.8 %; Mean Corpuscular Hemoglobin 31.1 pg (25.0-34.0); Mean Corpuscular Hgb Conc 33.3 g/dL (32.0-36.0); Mean Corpuscular Volume 93.4 fL (80.0-100.0); Mean Platelet Volume 11.6 fL (9.4-12.4); Monocytes # (auto) 0.69 K/uL (0.11-0.59); Monocytes % (auto) 8.9 %; Neutrophils # (auto) 6.03 K/uL (1.40-6.50); Platelet Count 158 K/uL (130-400); RDW Coefficient of Variation 14.6 % (11.5-14.5); Red Blood Count 3.02 M/uL (4.70-6.10); White Blood Count 7.73 K/ul (4.8-10.8)
--- NOTE | 2024-05-18 17:04 | Emergency Department Note ---
History of Present Illness General Chief Complaint: Swelling/Edema to Extremity Stated Complaint: NEEDS IV, DOC REFERRED Time Seen by Provider: 05/18/24 13:52 History of Present Illness Provider Complaint: shortness of breath Onset (ago): day(s) (2) Severity: similar to previous episodes Consistency/Duration: + progressively worsening Relieved By: + upright position Exacerbated By: + lying flat Known history of: congestive heart failure and other (End-stage renal disease) Associated symptoms: + orthopnea and + chest congestion; no chest pain, no pain with inspiration, no fever, no cough, no wheezing, no sputum production, no hemoptysis or no abdominal pain Home Medications Medication Instructions Recorded Confirmed Type nitroglycerin 0.3 mg sublingual 0.3 mg sublingual Q5M PRN chest 07/11/20 05/18/24 Rx tablet (Nitrostat) pain #30 tabs levalbuterol tartrate 45 2 inh inhalation Q6H PRN shortness 05/19/22 05/18/24 Rx mcg/actuation aerosol inhaler of breath #15 grams (Xopenex HFA) azelastine 137 mcg (0.1 %) nasal 2 spray intranasal BID PRN nasal 07/29/22 05/18/24 Rx spray congestion #30 mL aspirin 81 mg tablet,delayed 81 mg PO QAM 10/14/22 05/18/24 History release (Adult Low Dose Aspirin) fluticasone propionate 50 2 spray intranasal UD PRN 10/14/22 05/18/24 History mcg/actuation nasal Congestion spray,suspension acetaminophen 500 mg tablet 1,000 mg PO TID PRN Pain 10/22/22 05/18/24 History (Tylenol Extra Strength) pen needle, diabetic 32 gauge x #150 ea 11/17/22 05/18/24 Rx 5/32" (BD Denia 2nd Gen Pen Needle) miscellaneous medical supply #2 ea 01/06/23 05/18/24 Rx (Anti-Embolism Stockings) ergocalciferol (vitamin D2) 1,250 1,250 mcg PO Q30D 01/20/23 05/18/24 History mcg (50,000 unit) capsule melatonin 3 mg tablet 12 mg (4 x 3 mg) PO HS PRN 05/26/23 05/18/24 Rx insomnia #120 tabs isosorbide mononitrate 30 mg 30 mg PO BID #180 tabs 07/12/23 05/18/24 Rx tablet,extended release 24 hr carvedilol 12.5 mg tablet 12.5 mg PO BID #180 tabs 08/24/23 05/18/24 Rx allopurinol 100 mg tablet 100 mg PO QAM #90 tabs 09/24/23 05/18/24 Rx nystatin 100,000 unit/gram topical 1 applic topical DAILY PRN Rash 09/27/23 05/18/24 Rx powder #30 grams doxazosin 4 mg tablet (Cardura) 4 mg PO HS #90 tabs 10/21/23 05/18/24 Rx insulin aspart U-100 100 unit/mL See Rx Instructions subcut DAILY 11/15/23 05/18/24 Rx (3 mL) subcutaneous pen (Novolog #15 mL FlexPen U-100 Insulin aspart) pantoprazole 40 mg tablet,delayed 40 mg PO BID #90 tabs 11/18/23 05/18/24 Rx release glucagon 3 mg/actuation nasal spray 3 mg intranasal ONCE PRN 11/29/23 05/18/24 Rx hypoglycemia #2 ea amlodipine 2.5 mg tablet 2.5 mg PO QAM 12/07/23 05/18/24 History alirocumab 75 mg/mL subcutaneous 75 mg subcut Q14D #2 mL 12/23/23 05/18/24 Rx pen injector (Praluent Pen) budesonide-formoterol HFA 80 1 inh inhalation BID #10.2 grams 01/20/24 05/18/24 Rx mcg-4.5 mcg/actuation aerosol inhaler polyethylene glycol 3350 17 17 g PO DAILY 03/13/24 05/18/24 History gram/dose oral powder (Miralax) flash glucose sensor (FreeStyle #1 ea 04/10/24 05/18/24 Rx Saleem 2 Sensor kit) guaifenesin 600 mg tablet, 600 mg PO BID 04/18/24 05/18/24 History extended release 12 hr (Mucinex) hydrocortisone acetate 25 mg 25 mg WV HS PRN Hemorrhoids 04/18/24 05/18/24 History rectal suppository insulin degludec 200 unit/mL (3 16 unit subcut HS 04/18/24 05/18/24 History mL) subcutaneous pen (Tresiba FlexTouch U-200 insulin) oxycodone-acetaminophen 5 mg-325 1 tab PO Q6H PRN pain #20 tabs 04/21/24 05/18/24 Rx mg tablet (Percocet) olmesartan 40 mg tablet 40 mg PO DAILY 04/24/24 05/18/24 History albuterol sulfate 90 mcg/actuation 1 inh inhalation QID PRN shortness 05/03/24 05/18/24 Rx aerosol inhaler of breath or wheezing #6.7 grams sodium zirconium cyclosilicate 10 10 g PO DAILY #30 ea 05/04/24 05/18/24 Rx gram oral powder packet (Lokelma) torsemide 20 mg tablet 40 mg PO QAM 05/18/24 05/18/24 History Allergies Allergy/AdvReac Type Severity Reaction Status Date / Time exenatide Allergy Intermediate Swelling Verified 05/16/24 15:07 metformin Allergy Intermediate Kidney Verified 05/16/24 15:07 Disease phenol Allergy Intermediate Swelling Verified 05/16/24 15:07 pioglitazone Allergy Intermediate Swelling Verified 05/16/24 15:07 ether Allergy Mild Nausea/Vomi Verified 05/16/24 15:07 ting atorvastatin AdvReac Intermediate Muscle Verified 05/16/24 15:07 Aches simvastatin AdvReac Intermediate Muscle Verified 05/16/24 15:07 Aches Past Med/Surg History Problem List (Updated 05/18/24 @ 17:04 by Otf Kendall MD) Fluid overload (Acute) Pulmonary nodule S/P vascular surgery Valvular heart disease LUQ pain Constipation (HFpEF) heart failure with preserved ejection fraction Venous insufficiency Esophageal candidiasis Bilateral lower extremity edema Weakness (Acute) Anemia (Acute) SOB (shortness of breath) (Acute) Iron deficiency anemia On corticosteroid therapy Left shoulder pain Left-sided headache Otalgia, left ear Dysfunction of both eustachian tubes Bradycardia Contusion, hip Encounter for pre-operative examination History of carpal tunnel surgery of right wrist Positive colorectal cancer screening using Cologuard test seeing GI specialist after up coming procedure Bilateral chronic serous otitis media Follows with ENT- last seen 02/2024 Bilateral high frequency sensorineural hearing loss Mixed hearing loss, bilateral Skin lesion Dry skin dermatitis Obesity (BMI 30-39.9) (Chronic) Gout Gastroparesis Mild non proliferative diabetic retinopathy Abdominal bloating Gallstones LYDNA (obstructive sleep apnea) Abnormal weight gain Mixed hyperlipidemia (Chronic) Chronic kidney disease, stage 5, kidney failure (Chronic) Metabolic syndrome (Chronic) Loss of protective sensation of skin of foot (Chronic) Fatigue (Chronic) Diabetes type 2, uncontrolled (Chronic) Vitamin D deficiency (Chronic) Spinal stenosis (Chronic) Secondary hyperparathyroidism (Chronic) Proteinuria (Chronic) Left bundle-branch block (Chronic) chronic Hypertension Diabetic nephropathy associated with type 2 diabetes mellitus (Chronic) Benign prostatic hyperplasia (Chronic) Background diabetic retinopathy associated with type 2 diabetes mellitus (Chronic) Asthma (Chronic) Anxiety (Chronic) Medical History Hx of temporal arteritis ~2020, tx w/prednisone 60mg daily until 2 years ago Abnormal cardiovascular stress test - Presumed CAD per cardio records - 2020 showing inferior/inferolateral ischemia - based on lack of symptoms and high risk renal failure- managed medically Hx of gastroesophageal reflux (GERD) Hx of spinal stenosis Constipation History of bradycardia no recent issues; f/u dr. issa, al cardio Hx of Lyme disease completed antibiotic tx; "many years ago" lost voice for 5 months saw specialist at [facility], resolved History of blood transfusion 01/2024 [facility] Metabolic syndrome LBBB (left bundle branch block) [facility] Cardio Dr Issa Hypertension Hx of shortness of breath w/exertion only per BPH (benign prostatic hyperplasia) Asthma Anxiety hx, no current meds Anemia Blood Transfusion 01/2024 - [facility] 1x Iron Transfusion Chronic kidney disease, stage 4 (severe) Dr Lance (HFpEF) heart failure with preserved ejection fraction [facility] Luis Manuel Euvolemic at 03/13/24 HF visit Arthritis Weakness generalized as per LYNDA (obstructive sleep apnea) no device Type 2 diabetes mellitus IDDM - Saleem Monitor Umbilical hernia present - no surgery Eye problem - right - hole present for yrs/follows Dr. Gonzalez in [place] - has had eye injections previously - left eye-macular degeneration, has had 3 injections in the past, none in last 10 months. - Per ophthalmology records= choroidal neovascularization of left eye, DM retinopathy, macular edema, retinal telangiectasia bilaterally History of anesthesia reaction age 2 w/ tonsillectomy/ ether : n/v. Unique anesthetic considerations on preoperative anesthesia assessment As per patients - patient is now able to lay flat. becomes anxious when lies flat/worries he will be short of breath Gallstones present for several yrs - no surgery - avoids aggravating foods Gastroparesis Hx of gout no recent issues Hyperlipidemia Chronic rhinitis Chronic idiopathic urticaria hx Bilateral tinnitus Sensorineural hearing loss (SNHL) of both ears bilateral hearing aids Diabetic peripheral neuropathy associated with type 2 diabetes mellitus MRSA (methicillin resistant staph aureus) culture positive pts denies Surgical History Hx of colonoscopy (2022) Hx of esophagogastroduodenoscopy (2023) History of tooth extraction Upper/Lower Dentures-only wears upper dentures per History of myringotomy History of carpal tunnel surgery left History of surgical removal of skin lesion right hand History of tonsillectomy Family History Father Bladder cancer Diabetes Mother Uterine cancer Breast cancer Heart disease Hypertension Denies family history of Ovarian cancer Prostate cancer Coronary heart disease Myocardial infarction Colorectal cancer Social History Smoking Status: Former smoker Tobacco Type: Cigarettes Age Started Using Tobacco: 14; Age Quit Using Tobacco: 24; packs per day: 3; Second Hand Exposure: No; Do You Dip or Chew Tobacco: No; Hx Alcohol Use: Yes (none since 1971) Hx Substance Use: No Preferred Language: Jordanian Communication Ability: Effective Communication Ability Comment: [place] - uses hearing aides and microphone /pt does phone interview Visual Impairment: Limited Hearing Ability: Use of Hearing Aid Project Surveyor Required: No Beliefs That Will Affect Care: None marital status: Current Living Situation: Spouse Current Living Situation Comment: Spouse, grand daughter, her , and their two children current occupational status: retired 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 Feels Safe at Home: Yes Childhood Exposure to Second-Hand Smoke: No Diet: diabetic and regular caffeine: Yes during the past year weight has: decreased > 10 lbs Dental Care, Regularly: No Physical Activity Frequency: Daily Seatbelt Use: always Sunscreen Use: No Do you think of yourself as: straight/heterosexual Gender Identity: Male Assistive Devices: Cane, Denture - Upper, Hearing Aid - Bilateral and Walker Physical Exam 2 Vital Signs: Vital Signs - 24 hr 05/18/24 13:26 05/18/24 14:13 05/18/24 14:37 Temperature 36.6 C Temperature Source Temporal Artery Sc an Pulse Rate 70 69 Pulse Rate [Apical ] 66 Pulse Strength [Ap ical] Normal Respiratory Rate 20 Respiratory Effort / Characteristics Non-Labored Sponta neous Respiratory Depth Normal Respiratory Patter n Regular Blood Pressure 146/67 H Blood Pressure Jade n 93 Pulse Oximetry 93 96 Oxygen Delivery Me thod Room Air Room Air Sepsis Recent Feve r Within 48 Hours No Sepsis New/Unexpla ined Change in Men kolby Status N/A Sepsis Action Take n by Nursing No Action Required 05/18/24 15:00 05/18/24 15:36 Temperature Temperature Source Pulse Rate 68 64 Pulse Rate [Apical ] Pulse Strength [Ap ical] Respiratory Rate 13 15 Respiratory Effort / Characteristics Respiratory Depth Respiratory Patter n Blood Pressure Blood Pressure Jade n Pulse Oximetry Oxygen Delivery Me thod Sepsis Recent Feve r Within 48 Hours Sepsis New/Unexpla ined Change in Men kolby Status Sepsis Action Take n by Nursing Physical Exam: Physical Exam GENERAL: oriented to person, place, and time. appears well-developed and well- nourished. HENT: Exam performed. - Head: Normocephalic and atraumatic. EYES: Conjunctivae and EOM are normal. Right eye exhibits no discharge. Left eye exhibits no discharge. No scleral icterus. NECK: Normal range of motion. Neck supple. CV: Normal rate, regular rhythm, systolic murmur and intact distal pulses. 3+ pitting edema of the bilateral lower extremities palpable radial pulses bue. PULM/CHEST: Effort normal and breath sounds normal. No respiratory distress. No stridor. no wheezes. no rales. ABD: The abdomen is soft. There is no tenderness. MUSC: Left upper extremity fistula with a palpable thrill NEURO: Motor and sensation grossly intact. Course Course 1352: The patient was evaluated in room B11. A complete history and physical exam was performed Cardiac monitoring: An order was placed for continuous cardiac monitoring. The monitor shows a rate of 70 with sinus rhythm interpreted by me 1605: Vital signs stable. Labs show white blood cell count of 7.73. Hemoglobin 9.4. Potassium 3.1. BUN 97 creatinine 4.64. High-sensitivity troponin 18.6 BNP 992. X-ray shows fluid overload. Discussed with admitting team Dr. Garcia and he states he will evaluate the patient for admission. He recommends giving Bumex 3 mg IV at this time. Administered Medications Discontinued Medications Calcium Gluconate () 1,000 mg in 60 mls @ 240 mls/hr IV NOW STA Stop: 05/18/24 14:24 Last Infusion: 05/18/24 15:11 Dose: Infused Documented By: Admin: 05/18/24 14:35 Dose: 240 mls/hr Documented By: SNS Medical Decision Making Laboratory Data Attestation: I reviewed the patient's lab results. 05/18/24 14:36 05/18/24 13:50 Lab Results 05/18/24 05/18/24 Range/Units 13:50 14:36 WBC 7.73 (4.8-10.8) K/ul RBC 3.02 L (4.70-6.10) M/uL Hgb 9.4 L (14.0-18.0) g/dl Hct 28.2 L (42.0-52.0) % MCV 93.4 (80.0-100.0) fL MCH 31.1 (25.0-34.0) pg MCHC 33.3 (32.0-36.0) g/dL RDW Std Deviation 49.0 H (36.4-46.3) fL RDW Coeff of [place] 14.6 H (11.5-14.5) % Plt Count 158 (130-400) K/uL MPV 11.6 (9.4-12.4) fL Immature Gran % (Auto) 0.4 % Neut % (Auto) 78.0 % Lymph % (Auto) 9.8 % [place] % (Auto) 8.9 % Eos % (Auto) 2.5 % Baso % (Auto) 0.4 % Neut # (Auto) 6.03 (1.40-6.50) K/uL Lymph # (Auto) 0.76 L (1.20-3.40) K/uL [place] # (Auto) 0.69 H (0.11-0.59) K/uL Eos # (Auto) 0.19 (0.00-0.50) K/uL Baso # (Auto) 0.03 (0.00-0.20) K/uL Immature Gran # (Auto) 0.03 (0.01-0.20) K/uL Sodium 138 (136-145) mmol/L Potassium 3.1 L (3.5-5.1) mmol/L Chloride 102 (98-107) mmol/L Carbon Dioxide 25 (21-32) mmol/L Anion Gap 11 (3-11) BUN 97 H (6-23) mg/dl Creatinine 4.64 H* (0.6-1.4) mg/dl Est Cr Clr Drug Dosing 17.3 ml/min eGFR 12.06 BUN/Creatinine Ratio 20.9 H (10-20) Glucose 228 H (70-99(Fasting)) mg/dl Calcium 8.6 (8.6-10.3) mg/dl Magnesium 2.5 H (1.7-2.4) mg/dl Total Bilirubin 0.6 (0.2-1.0) mg/dl AST 15 (13-39) U/L ALT 8 (7-52) U/L Alkaline Phosphatase 119 H (34-104) U/L Troponin I High Sens 18.6 (0-20) pg/ml B-Natriuretic Peptide 992 H (0-100) pg/ml Total Protein 6.4 (6.0-8.3) gm/dl Albumin 3.7 (3.4-5.0) gm/dl Globulin 2.7 (2.5-4.0) gm/dl Albumin/Globulin Ratio 1.4 (0.9-2) Imaging Data Attestation: I personally reviewed and interpreted this imaging study as follows: My Impression: Chest x-ray: Cardiomegaly with fluid overload Radiologist's Impression: Chest X-Ray 05/18/24 13:32 XR chest 1V portable CLINICAL HISTORY: sob COMPARISON STUDY: 04/14/2024 FINDINGS: Compared with a prior examination, mild vascular congestion is progressive. There is a small amount of fluid in the minor fissure. Heart size remains enlarged. A focal area of increased parenchymal density is present in the right cardiophrenic angle. IMPRESSION: Suspected CHF. Right basilar infiltrate not excluded. ACT 112: Negative or not required by law. Electronically signed by: Snow Beltre M.D. 05/18/2024 2:33 PM ECG Data Attestation: I personally reviewed and interpreted this ECG as follows: Interpretation: EKG #1 at 1355: Sinus rhythm with a rate of 64. QRS 160 QTc 486. Left bundle branch block present. Sgarbossa negative. Baseline wander and artifact. EKG #2 at 1408: Sinus rhythm with a rate of 70. WV 248 QRS 162 QTc 479. Left bundle branch block present. Sgarbossa negative. [facility] Narrative 1352: The patient was evaluated in room B11. A complete history and physical exam was performed Cardiac monitoring: An order was placed for continuous cardiac monitoring. The monitor shows a rate of 70 with sinus rhythm interpreted by me 1605: Vital signs stable. Labs show white blood cell count of 7.73. Hemoglobin 9.4. Potassium 3.1. BUN 97 creatinine 4.64. High-sensitivity troponin 18.6 BNP 992. X-ray shows fluid overload. Discussed with admitting team Dr. Garcia and he states he will evaluate the patient for admission. He recommends giving Bumex 3 mg IV at this time. Impression & Plan Fluid overload Discharge Plan Visit Data Chief Complaint: Swelling/Edema to Extremity Stated Complaint: NEEDS IV, DOC REFERRED ED Provider: Otf Kendall Discharge Problem: Fluid overload Patient Disposition: Admitted As Inpatient Forms Stand Alone Forms: [facility] Prescriptions Prescriptions: No Action levalbuterol tartrate [Xopenex HFA] 45 mcg/actuation HFA aerosol inhaler 2 inh INH Q6H PRN (Reason: shortness of breath) Qty: 15 2RF (DME) pen needle, diabetic [BD Denia 2nd Gen Pen Needle] 32 gauge x 5/32" needle See Rx Instructions miscellaneous .MEDSUPPLY Qty: 150 5RF Rx Instructions: change new pen needle 5x a day (DME) Anti-Embolism Stockings Misc See Rx Instructions .Route Qty: 2 0RF Rx Instructions: As directed anti-embolism stockings melatonin 3 mg tablet 12 mg PO HS PRN (Reason: insomnia) Qty: 120 5RF isosorbide mononitrate 30 mg tablet extended release 24 hr 30 mg PO BID Qty: 180 3RF carvedilol 12.5 mg tablet 12.5 mg PO BID Qty: 180 3RF allopurinol 100 mg tablet 100 mg PO QAM Qty: 90 3RF nystatin 100,000 unit/gram powder 1 applic TOP DAILY PRN (Reason: Rash) Qty: 30 4RF doxazosin [Cardura] 4 mg tablet 4 mg PO HS Qty: 90 3RF insulin aspart U-100 [Novolog FlexPen U-100 Insulin] 100 unit/mL (3 mL) insulin pen See Rx Instructions SQ DAILY Qty: 15 5RF Patient Comments: 4 units Rx Instructions: Inject 4 units with meals plus sliding scale; TDD 35 units Praluent Pen 75 mg/mL pen injector 75 mg subcut Q14D Qty: 2 6RF Patient Comments: "hasn't been taking - does see Dr Issa today and may renew order" as per patients (DME) FreeStyle Saleem 2 Sensor Kit See Rx Instructions .Route Qty: 1 3RF Rx Instructions: Change sensor every 14 days Lokelma 10 gram powder in packet 10 g PO DAILY Qty: 30 2RF nitroglycerin [Nitrostat] 0.3 mg tablet, sublingual 0.3 mg sublingual Q5M PRN (Reason: chest pain) Qty: 30 3RF Patient Comments: has never needed it Rx Instructions: do not exceed 3 doses per episode azelastine 137 mcg (0.1 %) aerosol,spray 2 spray intranasal BID PRN (Reason: nasal congestion) Qty: 30 11RF Rx Instructions: administer into each nostril acetaminophen [Tylenol Extra Strength] 500 mg tablet 1,000 mg PO TID PRN (Reason: Pain) albuterol sulfate 90 mcg/actuation HFA aerosol inhaler 1 inh inhalation QID PRN (Reason: shortness of breath or wheezing) Qty: 6.7 5RF glucagon 3 mg/actuation spray,non-aerosol 3 mg intranasal ONCE PRN (Reason: hypoglycemia) Qty: 2 1RF polyethylene glycol 3350 [Miralax] 17 gram/dose powder 17 g PO DAILY pantoprazole 40 mg tablet,delayed release (DR/EC) 40 mg PO BID Qty: 90 3RF budesonide-formoterol 80-4.5 mcg/actuation HFA aerosol inhaler 1 inh inhalation BID Qty: 10.2 2RF aspirin [Adult Low Dose Aspirin] 81 mg tablet,delayed release (DR/EC) 81 mg PO QAM fluticasone propionate 50 mcg/actuation spray,suspension 2 spray intranasal UD PRN (Reason: Congestion) Rx Instructions: administer into each nostril ergocalciferol (vitamin D2) 1,250 mcg (50,000 unit) capsule 1,250 mcg PO Q30D Rx Instructions: TAKE THIS MED MONTHLY ON THE FIRST WEDNESDAY OF THE MONTH. torsemide 20 mg tablet 40 mg PO QAM Rx Instructions: FOR INCREASED SWELLING MAY INCREASE TO 60MG DAILY amlodipine 2.5 mg tablet 2.5 mg PO QAM guaifenesin [Mucinex] 600 mg Tablet Extended Release 12hr 600 mg PO BID hydrocortisone acetate 25 mg suppository 25 mg WV HS PRN (Reason: Hemorrhoids) Rx Instructions: Use for 7-10 days prn, repeat as needed. insulin degludec [Tresiba FlexTouch U-200] 200 unit/mL (3 mL) insulin pen 16 unit SQ HS oxycodone-acetaminophen [Percocet] 5-325 mg tablet 1 tab PO Q6H PRN (Reason: pain) Qty: 20 0RF olmesartan 40 mg tablet 40 mg PO DAILY Hold Instructions: hyperkalemia Rx Instructions: TAKE 1 TABLET BY MOUTH DAILY Referrals Referrals: Mariusz Bustamante MD [Primary Care Provider] -
[2024-05-18] MEDS: BUMETANIDE 3 MG in SYRINGE 0 ML IV ONE (17:52)
--- NOTE | 2024-05-18 18:12 | History & Physical Report ---
Date of Service May 18, 2024 Assessment & Plan (1) Fluid overload: (2) Pulmonary edema: (3) Acute kidney injury superimposed on CKD: (4) Chronic kidney disease, stage 5, kidney failure: (5) Anemia: (6) Left bundle-branch block: (7) Diabetic nephropathy associated with type 2 diabetes mellitus: (8) Hypertension: (9) Benign prostatic hyperplasia: (10) Asthma: (11) Morbid obesity: (12) Hx of temporal arteritis: (13) Type 2 diabetes mellitus: Plan 79yo male with history of CKD stage 4/5, recent LUE AV fistula creation (04/21/24), morbid obesity BMI ~40, T2DM, HTN, previous temporal arteritis treated with 12+ months of steroid therapy - now off such, gout, presumed CAD, GERD, LBBB -- presenting with evidence of pulm edema/volume overload. His volume overload is likely on the basis of advanced CKD rather than a primary cardiac issue. #volume overload / pulmonary edema - in the face of mild IDALMIS on CKD stage 4/5 - * had been taking torsemide 40mg TID at home with no effective diuresis and ongoing weight gains * I do not suspect his volume overload is due to primary cardiac issues; rather, his advanced CKD is the likely culprit * trial of bumex 3mg IV x 1 this afternoon * if no significant diuresis with such and if BMP tomorrow is stable could try 4mg of bumex or bumex drip - but I am not optimistic he will improve his volume status with escalating diuretics * I spoke with Dr Guillen from nephrology - in light of advanced CKD he may need HD initiation sooner rather than later for volume control * pt & his would like to delay initiation of HD as long as possible but they also acknowledge that with his severe kidney disease we may not have that luxury * if he needs HD started this admission would need vascular surgery consult with Dr Carrizales for permcath placement as AVF is not mature yet * strict I/O's * daily standing scale weights * daily BMP * check TSH * formal nephrology consult requested * Dr Guillen suggests making Mr Broderick NPO after MN tonight and, if needed, Dr Carrizales can be consulted tomorrow for dialysis catheter placement #hypokalemia - * K 3.1 * replace with PO KCL * repeat BMP am * mag level noted to be normal #T2DM - * a1c 7.9% in 01/31 * repeat a1c while here * lantus-novolog ordered * adjust as needed #LBBB - * chronic, no Rx needed * no obvious ischemic symptoms at this time #HTN - * cont amlodipine * cont coreg BID * diuretics - bumex IV today * imdur BID * olmesartan or formulary equivalent * adjust as needed #morbid obesity - BMI ~39/40 #asthma - * no exacerbation at this time * doubt contributing to dyspnea, etc #h/o chronic diastolic CHF - * could consider repeat echo while here but suspect his volume overload is kidney-related rather than diastolic CHF #h/o temporal arteritis - * resolved, in remission * no recent headaches * no recent prednisone usage #anemia - * 2nd to advanced CKD * h/h at baseline today * trend the hemoglobins to ensure stability #DVT proph - * hold off on chemical means in the event he needs permcath placement tomorrow or the next day pt's updated multiple times during the admissions process care d/w Dr Guillen from nephrology History of Present Illness Chief Complaint: dyspnea on exertion, weight gain Primary Care Provider: Mariusz Bustamante MD 79yo male with history of CKD stage 4/5, recent LUE AV fistula creation (04/21/24), morbid obesity BMI ~40, T2DM, HTN, previous temporal arteritis treated with 12+ months of steroid therapy - now off such, gout, presumed CAD, GERD, LBBB - presents from home with a 4 pound weight gain over 1-2 days, worsening dyspnea on exertion, worsening abdominal swelling & edema. This is despite use of torsemide 40mg TID. He is only voiding about 3-4 times/daily despite copious diuretics. Denies chest pain or chest tightness. Denies use of night-time O2/CPAP/BiPAP. Patient mentioned that his potassium was recently high and he was placed on Lokelma for such on 05/05/24. Allergies Allergy/AdvReac Type Severity Reaction Status Date / Time exenatide Allergy Intermediate Swelling Verified 05/16/24 15:07 metformin Allergy Intermediate Kidney Verified 05/16/24 15:07 Disease phenol Allergy Intermediate Swelling Verified 05/16/24 15:07 pioglitazone Allergy Intermediate Swelling Verified 05/16/24 15:07 ether Allergy Mild Nausea/Vomi Verified 05/16/24 15:07 ting atorvastatin AdvReac Intermediate Muscle Verified 05/16/24 15:07 Aches simvastatin AdvReac Intermediate Muscle Verified 05/16/24 15:07 Aches Home Medications Medication Instructions Recorded Confirmed Type nitroglycerin 0.3 mg sublingual 0.3 mg sublingual Q5M PRN chest 07/11/20 05/18/24 Rx tablet (Nitrostat) pain #30 tabs levalbuterol tartrate 45 2 inh inhalation Q6H PRN shortness 05/19/22 05/18/24 Rx mcg/actuation aerosol inhaler of breath #15 grams (Xopenex HFA) azelastine 137 mcg (0.1 %) nasal 2 spray intranasal BID PRN nasal 07/29/22 05/18/24 Rx spray congestion #30 mL aspirin 81 mg tablet,delayed 81 mg PO QAM 10/14/22 05/18/24 History release (Adult Low Dose Aspirin) fluticasone propionate 50 2 spray intranasal UD PRN 10/14/22 05/18/24 History mcg/actuation nasal Congestion spray,suspension acetaminophen 500 mg tablet 1,000 mg PO TID PRN Pain 10/22/22 05/18/24 History (Tylenol Extra Strength) pen needle, diabetic 32 gauge x #150 ea 11/17/22 05/18/24 Rx 5/32" (BD Denia 2nd Gen Pen Needle) miscellaneous medical supply #2 ea 01/06/23 05/18/24 Rx (Anti-Embolism Stockings) ergocalciferol (vitamin D2) 1,250 1,250 mcg PO Q30D 01/20/23 05/18/24 History mcg (50,000 unit) capsule melatonin 3 mg tablet 12 mg (4 x 3 mg) PO HS PRN 05/26/23 05/18/24 Rx insomnia #120 tabs isosorbide mononitrate 30 mg 30 mg PO BID #180 tabs 07/12/23 05/18/24 Rx tablet,extended release 24 hr carvedilol 12.5 mg tablet 12.5 mg PO BID #180 tabs 08/24/23 05/18/24 Rx allopurinol 100 mg tablet 100 mg PO QAM #90 tabs 09/24/23 05/18/24 Rx nystatin 100,000 unit/gram topical 1 applic topical DAILY PRN Rash 09/27/23 05/18/24 Rx powder #30 grams doxazosin 4 mg tablet (Cardura) 4 mg PO HS #90 tabs 10/21/23 05/18/24 Rx insulin aspart U-100 100 unit/mL See Rx Instructions subcut DAILY 11/15/23 05/18/24 Rx (3 mL) subcutaneous pen (Novolog #15 mL FlexPen U-100 Insulin aspart) pantoprazole 40 mg tablet,delayed 40 mg PO BID #90 tabs 11/18/23 05/18/24 Rx release glucagon 3 mg/actuation nasal spray 3 mg intranasal ONCE PRN 11/29/23 05/18/24 Rx hypoglycemia #2 ea amlodipine 2.5 mg tablet 2.5 mg PO QAM 12/07/23 05/18/24 History alirocumab 75 mg/mL subcutaneous 75 mg subcut Q14D #2 mL 12/23/23 05/18/24 Rx pen injector (Praluent Pen) budesonide-formoterol HFA 80 1 inh inhalation BID #10.2 grams 01/20/24 05/18/24 Rx mcg-4.5 mcg/actuation aerosol inhaler polyethylene glycol 3350 17 17 g PO DAILY 03/13/24 05/18/24 History gram/dose oral powder (Miralax) flash glucose sensor (FreeStyle #1 ea 04/10/24 05/18/24 Rx Saleem 2 Sensor kit) guaifenesin 600 mg tablet, 600 mg PO BID 04/18/24 05/18/24 History extended release 12 hr (Mucinex) hydrocortisone acetate 25 mg 25 mg OK HS PRN Hemorrhoids 04/18/24 05/18/24 History rectal suppository insulin degludec 200 unit/mL (3 16 unit subcut HS 04/18/24 05/18/24 History mL) subcutaneous pen (Tresiba FlexTouch U-200 insulin) oxycodone-acetaminophen 5 mg-325 1 tab PO Q6H PRN pain #20 tabs 04/21/24 05/18/24 Rx mg tablet (Percocet) olmesartan 40 mg tablet 40 mg PO DAILY 04/24/24 05/18/24 History albuterol sulfate 90 mcg/actuation 1 inh inhalation QID PRN shortness 05/03/24 05/18/24 Rx aerosol inhaler of breath or wheezing #6.7 grams sodium zirconium cyclosilicate 10 10 g PO DAILY #30 ea 05/04/24 05/18/24 Rx gram oral powder packet (Lokelma) torsemide 20 mg tablet 40 mg PO QAM 05/18/24 05/18/24 History Past Med/Surg History Problem List (Updated 05/19/24 @ 01:20 by Bhargav Garcia MD) Morbid obesity Pulmonary edema Fluid overload (Acute) Pulmonary nodule S/P vascular surgery Valvular heart disease LUQ pain Constipation (HFpEF) heart failure with preserved ejection fraction Venous insufficiency Esophageal candidiasis Bilateral lower extremity edema Weakness (Acute) Anemia (Acute) SOB (shortness of breath) (Acute) Iron deficiency anemia On corticosteroid therapy Left shoulder pain Left-sided headache Otalgia, left ear Dysfunction of both eustachian tubes Bradycardia Contusion, hip Encounter for pre-operative examination History of carpal tunnel surgery of right wrist Positive colorectal cancer screening using Cologuard test seeing GI specialist after up coming procedure Bilateral chronic serous otitis media Follows with ENT- last seen 02/2024 Bilateral high frequency sensorineural hearing loss Mixed hearing loss, bilateral Skin lesion Dry skin dermatitis Obesity (BMI 30-39.9) (Chronic) Gout Gastroparesis Mild non proliferative diabetic retinopathy Abdominal bloating Gallstones LYNDA (obstructive sleep apnea) Abnormal weight gain Mixed hyperlipidemia (Chronic) Chronic kidney disease, stage 5, kidney failure (Chronic) Metabolic syndrome (Chronic) Loss of protective sensation of skin of foot (Chronic) Fatigue (Chronic) Diabetes type 2, uncontrolled (Chronic) Vitamin D deficiency (Chronic) Spinal stenosis (Chronic) Secondary hyperparathyroidism (Chronic) Proteinuria (Chronic) Left bundle-branch block (Chronic) chronic Hypertension Diabetic nephropathy associated with type 2 diabetes mellitus (Chronic) Benign prostatic hyperplasia (Chronic) Background diabetic retinopathy associated with type 2 diabetes mellitus (Chronic) Asthma (Chronic) Anxiety (Chronic) Medical History (Updated 05/19/24 @ 01:20 by Bhargav Garcia MD) Hx of temporal arteritis ~2020, tx w/prednisone 60mg daily until 2 years ago Abnormal cardiovascular stress test - Presumed CAD per cardio records - 2020 showing inferior/inferolateral ischemia - based on lack of symptoms and high risk renal failure- managed medically Hx of gastroesophageal reflux (GERD) Hx of spinal stenosis Constipation History of bradycardia no recent issues; f/u dr. issa, al cardio Hx of Lyme disease completed antibiotic tx; "many years ago" lost voice for 5 months saw specialist at [facility], resolved History of blood transfusion 01/2024 [facility] Metabolic syndrome LBBB (left bundle branch block) [facility] Cardio Dr Issa Hypertension Hx of shortness of breath w/exertion only per BPH (benign prostatic hyperplasia) Asthma Anxiety hx, no current meds Anemia Blood Transfusion 01/2024 - [facility] 1x Iron Transfusion Chronic kidney disease, stage 4 (severe) Dr Lance (HFpEF) heart failure with preserved ejection fraction [facility] Cardio Luis Manuel Euvolemic at 03/13/24 HF visit Arthritis Weakness generalized as per LYNDA (obstructive sleep apnea) no device Type 2 diabetes mellitus IDDM - Saleem Monitor Umbilical hernia present - no surgery Eye problem - right - hole present for yrs/follows Dr. Gonzalez in [place] - has had eye injections previously - left eye-macular degeneration, has had 3 injections in the past, none in last 10 months. - Per ophthalmology records= choroidal neovascularization of left eye, DM retinopathy, macular edema, retinal telangiectasia bilaterally History of anesthesia reaction age 2 w/ tonsillectomy/ ether : n/v. Unique anesthetic considerations on preoperative anesthesia assessment As per patients - patient is now able to lay flat. becomes anxious when lies flat/worries he will be short of breath Gallstones present for several yrs - no surgery - avoids aggravating foods Gastroparesis Hx of gout no recent issues Hyperlipidemia Chronic rhinitis Chronic idiopathic urticaria hx Bilateral tinnitus Sensorineural hearing loss (SNHL) of both ears bilateral hearing aids Diabetic peripheral neuropathy associated with type 2 diabetes mellitus MRSA (methicillin resistant staph aureus) culture positive pts denies Surgical History (Updated 05/19/24 @ 01:12 by Bhargav Garcia MD) S/P arteriovenous (AV) fistula creation LUE - 04/2024; Dr Jef Carrizales Hx of colonoscopy (2022) Hx of esophagogastroduodenoscopy (2023) History of tooth extraction Upper/Lower Dentures-only wears upper dentures per History of myringotomy History of carpal tunnel surgery left History of surgical removal of skin lesion right hand History of tonsillectomy Family History Father Bladder cancer Diabetes Mother Uterine cancer Breast cancer Heart disease Hypertension Denies family history of Ovarian cancer Prostate cancer Coronary heart disease Myocardial infarction Colorectal cancer Social History Smoking Status: Former smoker Tobacco Type: Cigarettes Age Started Using Tobacco: 14; Age Quit Using Tobacco: 24; packs per day: 3; Second Hand Exposure: No; Do You Dip or Chew Tobacco: No; Tobacco Cessation Education Requested by Patient: No Hx Alcohol Use: No Hx Substance Use: No Preferred Language: German Communication Ability: Effective Communication Ability Comment: ELEM - uses hearing aides and microphone /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 Other Information That Helps Us Care for You: No Feels Safe at Home: Yes Safety Concerns: Feels Safe At This Time Childhood Exposure to Second-Hand Smoke: No Diet: diabetic and regular caffeine: Yes during the past year weight has: decreased > 10 lbs Dental Care, Regularly: No Physical Activity Frequency: Daily Seatbelt Use: always Sunscreen Use: No Do you think of yourself as: straight/heterosexual Gender Identity: Male Assistive Devices: Cane and Walker Review of Systems Review of Systems: gen - no fevers or chills; recent weight gains; appetite poor last few days eyes - no visual changes last week HENT - chronic post-nasal drip with "thick" sputum; no dysphagia neck - denies pain CV - denies chest pain or tightness pulm - dyspnea on exertion; chronic cough with thick sputum production GI - no abd pain or N/V; suffers from chronic constipation - no dysuria musculo - denies pain in any location skin - chronic stasis changes on shins endo - he is diabetic neuro - no recent headaches Physical Exam Physical Exam: gen - laying in bed comfortably w/o distress; pleasant eyes - PERRL HENT - thick mucous on roof of mouth & posterior pharynx neck - subtle JVD present, no lymph nodes heart - RRR, s1 s2, 1/6 AJKE LSB vascular - AVF LUE with +bruit lungs - mild b/l basilar rales, no wheezes abd - distended with ascites or body-wall edema, BS+, NT, no obvious HSM ext - at least 2+ pitting edema from distal thighs down to feet; pulses feet 1- 2+ b/l skin - stasis changes b/l shins neuro - strength 5/5 x 4 exts; no facial droop Results & Data Results & Data Vital Signs (Past 12 Hours) Vital Signs Temp Pulse Pulse Resp BP Pulse Ox O2 Del Method 05/18/24 15:36 64 15 05/18/24 15:00 68 13 05/18/24 14:37 69 05/18/24 14:13 66 96 Room Air 05/18/24 13:26 36.6 C 70 20 146/67 H 93 Room Air Laboratory Results Laboratory Results - last 24 hr 05/18/24 05/18/24 13:50 14:36 WBC 7.73 RBC 3.02 L Hgb 9.4 L Hct 28.2 L MCV 93.4 MCH 31.1 MCHC 33.3 RDW Std Deviation 49.0 H RDW Coeff of [place] 14.6 H Plt Count 158 MPV 11.6 Immature Gran % (Auto) 0.4 Neut % (Auto) 78.0 Lymph % (Auto) 9.8 [place] % (Auto) 8.9 Eos % (Auto) 2.5 Baso % (Auto) 0.4 Neut # (Auto) 6.03 Lymph # (Auto) 0.76 L [place] # (Auto) 0.69 H Eos # (Auto) 0.19 Baso # (Auto) 0.03 Immature Gran # (Auto) 0.03 Sodium 138 Potassium 3.1 L Chloride 102 Carbon Dioxide 25 Anion Gap 11 BUN 97 H Creatinine 4.64 H* Est Cr Clr Drug Dosing 17.3 eGFR 12.06 BUN/Creatinine Ratio 20.9 H Glucose 228 H Calcium 8.6 Magnesium 2.5 H Total Bilirubin 0.6 AST 15 ALT 8 Alkaline Phosphatase 119 H Troponin I High Sens 18.6 B-Natriuretic Peptide 992 H Total Protein 6.4 Albumin 3.7 Globulin 2.7 Albumin/Globulin Ratio 1.4 Diagnostic Findings Chest X-Ray 05/18/24 13:32 XR chest 1V portable CLINICAL HISTORY: sob COMPARISON STUDY: 04/14/2024 FINDINGS: Compared with a prior examination, mild vascular congestion is progressive. There is a small amount of fluid in the minor fissure. Heart size remains enlarged. A focal area of increased parenchymal density is present in the right cardiophrenic angle. IMPRESSION: Suspected CHF. Right basilar infiltrate not excluded. ACT 112: Negative or not required by law. Electronically signed by: Snow Beltre M.D. 05/18/2024 2:33 PM EKG: NSR, 1st degree AV block, LBBB, no acute ST segment changes Code Status & VTE Plan Code Status full code PG Care Time/CCT Total # of Minutes Spent Total Time Spent with Patient: Total time spent is greater than 50% in coordination of care (as documented) at patient's floor/unit and/or counseling patient: Coding Level of Care Code 59533 INT INP/OBS CARE 3/75MIN Diagnoses Fluid overload E87.70 Pulmonary edema J81.1 Acute kidney injury superimposed on CKD N17.9; N18.9 Chronic kidney disease, stage 5, kidney failure N18.5 Anemia D64.9 Anemia type: unspecified type Left bundle-branch block I44.7 Diabetic nephropathy associated with type 2 diabetes mellitus E11.21 Primary hypertension I10 Hypertension type: primary hypertension Benign prostatic hyperplasia without lower urinary tract symptoms N40.0 Lower urinary tract symptom presence: symptoms absent Asthma J45.909 Morbid obesity E66.01 Hx of temporal arteritis Z87.39 Type 2 diabetes mellitus E11.9 (5) Anemia Anemia type: unspecified type Qualified Code(s): D64.9 - Anemia, unspecified (8) Hypertension Hypertension type: primary hypertension Qualified Code(s): I10 - Essential (primary) hypertension (9) Benign prostatic hyperplasia Lower urinary tract symptom presence: symptoms absent Qualified Code(s): N40.0 - Benign prostatic hyperplasia without lower urinary tract symptoms
[2024-05-18] MEDS: POTASSIUM CHLORIDE 10 MEQ TABCR PO STA (18:56)
--- NOTE | 2024-05-18 21:28 | Electrocardiogram Report ---
Test Reason : Blood Pressure : */* mmHG Vent. Rate : 64 BPM Atrial Rate : * BPM P-R Int : 216 ms QRS Dur : 160 ms QT Int : 472 ms P-R-T Axes : * -7 160 degrees QTcB Int : 486 ms Poor data quality, interpretation may be adversely affected Probable Sinus rhythm with 1st degree A-V block Left bundle branch block Abnormal ECG When compared with ECG of 14-Apr-2024 10:58, No significant change was found Confirmed by Feliciano Moon ([id number]) on 05/18/2024 9:28:20 PM Referred By: Ralph Lance Confirmed By: Feliciano Moon
[2024-05-18] MEDS ORDERED: FLUTICASONE PROPIONATE NA SPR 16 GM BTL PRN (22:27)
[2024-05-18] MEDS ORDERED: ONDANSETRON INJ 2 MG/ML 2 ML VIAL IV PRN (22:27)
[2024-05-18] MEDS ORDERED: AZELASTINE HCL 0.1% NASAL 200 SPRAYS/27,400 MCG BTL PRN (22:27)
[2024-05-18] MEDS ORDERED: oxyCODONE/ACETAMINOPHEN 5mg/325mg TAB PO PRN (22:27)
[2024-05-18] MEDS ORDERED: NYSTATIN POWDER 15GM BTL EXT PRN (22:27)
[2024-05-18] MEDS ORDERED: ACETAMINOPHEN 500 MG TAB PO PRN (22:27)
[2024-05-18] MEDS: LANTUS PER UNIT CHARGE SQ SCH (23:05)
[2024-05-18] MEDS: INSULIN ASPART PER UNIT CHARGE SC SCH (23:05)
[2024-05-19] MEDS: ISOSORBIDE MONO EXTENDED REL 30 MG TABCR PO SCH (00:10)
[2024-05-19] MEDS: guaiFENesin 600 MG TABCR PO SCH (00:10)
[2024-05-19] MEDS: DOXAZosin MESYLATE 4 MG TAB PO SCH (00:10)
[2024-05-19] MEDS: carvediloL 12.5 MG TAB PO SCH (00:11)
[2024-05-19] MEDS: PANTOprazole 40 MG TAB PO SCH (00:11)
[2024-05-19] MEDS: MELATONIN 3 MG TAB PO PRN (00:13)
[2024-05-19] MEDS ORDERED: NITROGLYCERIN SL 0.4 MG/TAB TAB SL PRN (04:10)
[2024-05-19] MEDS: ALBUTEROL HFA 8 GM INHALER INH PRN (05:52)
[2024-05-19 07:56] LABS: BUN Creatinine Ratio 21.5 (10-20); Calcium 8.9 mg/dl (8.6-10.3); Creatinine Clr Calc Pharmacy 17.6 ml/min; Potassium 2.9 mmol/L (3.5-5.1)
[2024-05-19 08:13] LABS: Thyroid Stimulating Hormone 4.635 uIu/ml (0.300-4.500)
[2024-05-19 08:55] LABS: T4 Free Thyroxine 0.92 ng/dl (0.61-1.60)
[2024-05-19] MEDS: POTASSIUM CHLORIDE 10 MEQ TABCR PO STA (08:56)
[2024-05-19] MEDS: POTASSIUM CHLORIDE / WTR 10 MEQ/100 ML PLCT IV SCH (08:56)
[2024-05-19] MEDS: allopurinoL 100 MG TAB PO SCH (08:58)
[2024-05-19] MEDS: LOSARTAN POTASSIUM 50 MG TAB PO SCH (08:58)
[2024-05-19] MEDS: ASPIRIN 81 MG ECTAB PO SCH (08:58)
[2024-05-19] MEDS: amLODIPine BESYLATE 5 MG TAB PO SCH (08:58)
[2024-05-19] MEDS: FLUTICASONE/VILANTEROL 100/25MCG 14 PUFFS/INHALER INH SCH (08:59)
--- NOTE | 2024-05-19 09:05 | Nephrology Consultation ---
Date of Consultation May 19, 2024 Assessment & Plan (1) Fluid overload: Bumex 3 mg IV provided yesterday with inadequate response. Goals of care were discussed. Sai is unfortunately failing diuretic therapy with notable progressive edema in the setting of advanced CKD. Plan will be to initiate dialysis treatments. (2) Chronic kidney disease, stage 5, kidney failure: Dr. Carrizales has been consulted for hemodialysis permcath placement. AVF is maturing well but not mature for use at this time. I spoke to Dr. Carrizales this AM. Once HD catheter is secure, first dialysis treatment will be coordinated. I appreciate case management assistance in arranging outpatient HD at [facility] under the care of Dr. Lance. Hepatitis profile was ordered this AM. CKD is attributed to DKD and hypertension. Medications are appropriate for kidney function. Maintain renal diet. Potassium replacement is being provided for hypokalemia. Lokelma has been held. (3) Anemia: Check iron profile with next labs. Sai has not been maintained on EMA therapy. (4) Hypokalemia: Replacement is being provided. Repeat labs tomorrow AM. Hold Lokelma. History of Present Illness Reason for Consultation: volume overload, CKD stage 5 Requesting Physician: Bhargav Garcia MD Attending Physician: Bhargav Garcia MD History of Present Illness Mr. David Broderick is an 79 year-old male with CKD V A3 who presented to the ER at [facility] yesterday with volume overload and progressive weakness. The patient was seen and evaluated this AM with his at the bedside. I discussed the plan of care with Dr. Garcia (hospitalist). I also spoke to Dr. Lance who follows Mr. Broderick in the outpatient nephrology clinic. David's kidney dysfunction has been attributed to DKD, hypertension, and microvascular disease. Dr. Carrizales placed a L BC AVF creation on 04/21/24 which has healed well. The venous limb is developing appropriately and the fistula has a good thrill and bruit. Sai tolerated the procedure well. Unfortunately, he has been experiencing refractory edema and fluid retention despite taking torsemide 40 mg x 2-3/day. Sai had developed hyperkalemia which was well managed with dietary potassium restriction and regular use of Lokelma. Sai had discussed dialysis initiation with Dr. Lance. He was hoping to have a mature access but unfortunately did not have a robust response to IV Bumex overnight. Sai has progressive uremia. He was agreeable to permcath placement and initiation of dialysis at this time. He is planning IHD at [facility]. Medical history is notable for hyperk alemia managed with low dose amlodipine (increased LE edema with higher doses), carvedilol, doxazosin, olmesartan, and diuretics), AODM with neuropathy, ASCVD, sponal stenosis, BPH, gout, hyperlipidemia, hearing loss, and temporal arteritis diagnosed in December 2022 --> completed steroid taper in May 2023. Allergies Allergy/AdvReac Type Severity Reaction Status Date / Time exenatide Allergy Intermediate Swelling Verified 05/16/24 15:07 metformin Allergy Intermediate Kidney Verified 05/16/24 15:07 Disease phenol Allergy Intermediate Swelling Verified 05/16/24 15:07 pioglitazone Allergy Intermediate Swelling Verified 05/16/24 15:07 ether Allergy Mild Nausea/Vomi Verified 05/16/24 15:07 ting atorvastatin AdvReac Intermediate Muscle Verified 05/16/24 15:07 Aches simvastatin AdvReac Intermediate Muscle Verified 05/16/24 15:07 Aches Home Medications Medication Instructions Recorded Confirmed Type nitroglycerin 0.3 mg sublingual 0.3 mg sublingual Q5M PRN chest 07/11/20 05/18/24 Rx tablet (Nitrostat) pain #30 tabs levalbuterol tartrate 45 2 inh inhalation Q6H PRN shortness 05/19/22 05/18/24 Rx mcg/actuation aerosol inhaler of breath #15 grams (Xopenex HFA) azelastine 137 mcg (0.1 %) nasal 2 spray intranasal BID PRN nasal 07/29/22 05/18/24 Rx spray congestion #30 mL aspirin 81 mg tablet,delayed 81 mg PO QAM 10/14/22 05/18/24 History release (Adult Low Dose Aspirin) fluticasone propionate 50 2 spray intranasal UD PRN 10/14/22 05/18/24 History mcg/actuation nasal Congestion spray,suspension acetaminophen 500 mg tablet 1,000 mg PO TID PRN Pain 10/22/22 05/18/24 History (Tylenol Extra Strength) pen needle, diabetic 32 gauge x #150 ea 11/17/22 05/18/24 Rx 5/32" (BD Denia 2nd Gen Pen Needle) miscellaneous medical supply #2 ea 01/06/23 05/18/24 Rx (Anti-Embolism Stockings) ergocalciferol (vitamin D2) 1,250 1,250 mcg PO Q30D 01/20/23 05/18/24 History mcg (50,000 unit) capsule melatonin 3 mg tablet 12 mg (4 x 3 mg) PO HS PRN 05/26/23 05/18/24 Rx insomnia #120 tabs isosorbide mononitrate 30 mg 30 mg PO BID #180 tabs 07/12/23 05/18/24 Rx tablet,extended release 24 hr carvedilol 12.5 mg tablet 12.5 mg PO BID #180 tabs 08/24/23 05/18/24 Rx allopurinol 100 mg tablet 100 mg PO QAM #90 tabs 09/24/23 05/18/24 Rx nystatin 100,000 unit/gram topical 1 applic topical DAILY PRN Rash 09/27/23 05/18/24 Rx powder #30 grams doxazosin 4 mg tablet (Cardura) 4 mg PO HS #90 tabs 10/21/23 05/18/24 Rx insulin aspart U-100 100 unit/mL See Rx Instructions subcut DAILY 11/15/23 05/18/24 Rx (3 mL) subcutaneous pen (Novolog #15 mL FlexPen U-100 Insulin aspart) pantoprazole 40 mg tablet,delayed 40 mg PO BID #90 tabs 11/18/23 05/18/24 Rx release glucagon 3 mg/actuation nasal spray 3 mg intranasal ONCE PRN 11/29/23 05/18/24 Rx hypoglycemia #2 ea amlodipine 2.5 mg tablet 2.5 mg PO QAM 12/07/23 05/18/24 History alirocumab 75 mg/mL subcutaneous 75 mg subcut Q14D #2 mL 12/23/23 05/18/24 Rx pen injector (Praluent Pen) budesonide-formoterol HFA 80 1 inh inhalation BID #10.2 grams 01/20/24 05/18/24 Rx mcg-4.5 mcg/actuation aerosol inhaler polyethylene glycol 3350 17 17 g PO DAILY 03/13/24 05/18/24 History gram/dose oral powder (Miralax) flash glucose sensor (FreeStyle #1 ea 04/10/24 05/18/24 Rx Saleem 2 Sensor kit) guaifenesin 600 mg tablet, 600 mg PO BID 04/18/24 05/18/24 History extended release 12 hr (Mucinex) hydrocortisone acetate 25 mg 25 mg GA HS PRN Hemorrhoids 04/18/24 05/18/24 History rectal suppository insulin degludec 200 unit/mL (3 16 unit subcut HS 04/18/24 05/18/24 History mL) subcutaneous pen (Tresiba FlexTouch U-200 insulin) oxycodone-acetaminophen 5 mg-325 1 tab PO Q6H PRN pain #20 tabs 04/21/24 05/18/24 Rx mg tablet (Percocet) olmesartan 40 mg tablet 40 mg PO DAILY 04/24/24 05/18/24 History albuterol sulfate 90 mcg/actuation 1 inh inhalation QID PRN shortness 05/03/24 05/18/24 Rx aerosol inhaler of breath or wheezing #6.7 grams sodium zirconium cyclosilicate 10 10 g PO DAILY #30 ea 05/04/24 05/18/24 Rx gram oral powder packet (Lokelma) torsemide 20 mg tablet 40 mg PO QAM 05/18/24 05/18/24 History Patient History Medical History (Updated 05/19/24 @ 09:18 by Abe Guillen DO) Hx of temporal arteritis ~2020, tx w/prednisone 60mg daily until 2 years ago Abnormal cardiovascular stress test - Presumed CAD per cardio records - 2020 showing inferior/inferolateral ischemia - based on lack of symptoms and high risk renal failure- managed medically Hx of gastroesophageal reflux (GERD) Hx of spinal stenosis Constipation History of bradycardia no recent issues; f/u dr. issa[place] [facility] Hx of Lyme disease completed antibiotic tx; "many years ago" lost voice for 5 months saw specialist at [facility] [place], resolved History of blood transfusion 01/2024 [facility] Metabolic syndrome LBBB (left bundle branch block) [facility] [place] Cardio Dr Issa Hypertension Hx of shortness of breath w/exertion only per BPH (benign prostatic hyperplasia) Asthma Anxiety hx, no current meds Anemia Blood Transfusion 01/2024 - [facility] 1x Iron Transfusion Chronic kidney disease, stage 4 (severe) Dr Lance (HFpEF) heart failure with preserved ejection fraction [facility] Manuel Euvolemic at 03/13/24 HF visit Arthritis Weakness generalized as per LYNDA (obstructive sleep apnea) no device Type 2 diabetes mellitus IDDM - Saleem Monitor Umbilical hernia present - no surgery Eye problem - right - hole present for yrs/follows Dr. Gonzalez in [place] - has had eye injections previously - left eye-macular degeneration, has had 3 injections in the past, none in last 10 months. - Per ophthalmology records= choroidal neovascularization of left eye, DM retinopathy, macular edema, retinal telangiectasia bilaterally History of anesthesia reaction age 2 w/ tonsillectomy/ ether : n/v. Unique anesthetic considerations on preoperative anesthesia assessment As per patients - patient is now able to lay flat. becomes anxious when lies flat/worries he will be short of breath Gallstones present for several yrs - no surgery - avoids aggravating foods Gastroparesis Hx of gout no recent issues Hyperlipidemia Chronic rhinitis Chronic idiopathic urticaria hx Bilateral tinnitus Sensorineural hearing loss (SNHL) of both ears bilateral hearing aids Diabetic peripheral neuropathy associated with type 2 diabetes mellitus MRSA (methicillin resistant staph aureus) culture positive pts denies Surgical History (Updated 05/19/24 @ 01:12 by Bhargav Garcia MD) S/P arteriovenous (AV) fistula creation LUE - 04/2024; Dr Jef Carrizales Hx of colonoscopy (2022) Hx of esophagogastroduodenoscopy (2023) History of tooth extraction Upper/Lower Dentures-only wears upper dentures per History of myringotomy History of carpal tunnel surgery left History of surgical removal of skin lesion right hand History of tonsillectomy Family History Father Bladder cancer Diabetes Mother Uterine cancer Breast cancer Heart disease Hypertension Denies family history of Ovarian cancer Prostate cancer Coronary heart disease Myocardial infarction Colorectal cancer Social History Smoking Status: Former smoker Tobacco Type: Cigarettes Age Started Using Tobacco: 14; Age Quit Using Tobacco: 24; packs per day: 3; Second Hand Exposure: No; Do You Dip or Chew Tobacco: No; Tobacco Cessation Education Requested by Patient: No Hx Alcohol Use: No Hx Substance Use: No Preferred Language: Wolof Communication Ability: Effective Communication Ability Comment: MASHPEE - uses hearing aides and microphone /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 Other Information That Helps Us Care for You: No Feels Safe at Home: Yes Safety Concerns: Feels Safe At This Time Childhood Exposure to Second-Hand Smoke: No Diet: diabetic and regular caffeine: Yes during the past year weight has: decreased > 10 lbs Dental Care, Regularly: No Physical Activity Frequency: Daily Seatbelt Use: always Sunscreen Use: No Do you think of yourself as: straight/heterosexual Gender Identity: Male Assistive Devices: Cane and Walker Review of Systems Review of Systems: All systems reviewed & are unremarkable except as noted in HPI & below Constitutional: + fatigue, + weakness and + anorexia (de creased appetite x several months) Cardiovascular: + edema Physical Exam Constitutional: + obese; not in distress Eyes: + anicteric sclerae; no conjunctival abn ormality ENMT: Ears: + hearing impairment Neck: trachea midline, no thyromegaly Respiratory: normal respiratory effort, lungs clear to auscultation Auscultation: + diminished lung sounds and + rales Cardiovascular: Rate/Rhythm: regular rate and regular rhythm (no rub) Heart Sounds: normal S1 and normal S2 Extremities: + edema (1+ pretibial pitting edema) and + AV fistula (L BC AVF +thrill and bruit) Gastrointestinal (Abdomen): Inspection/Auscultation: + abdomen distended Percussion/Palpation: abdomen nontender and no guarding Musculoskeletal: Extremities: no cyanosis and no clubbing Skin: no rashes, warm and dry Neurologic: awake; not confused Psychiatric: Orientation: alert and oriented x 3 Results & Data Vital Signs (Past 12 Hours) Vital Signs Temp Pulse Pulse Pulse Pulse Resp BP 05/19/24 07:11 36.9 C 63 18 163/63 H 05/19/24 07:05 83 05/19/24 05:56 88 17 05/19/24 03:59 36.6 C 80 18 151/72 H 05/18/24 22:31 05/18/24 22:31 36.5 C 83 18 163/72 H 05/18/24 22:17 74 05/18/24 21:23 72 05/18/24 21:13 179/80 H Pulse Ox O2 Del Method 05/19/24 07:11 93 Room Air 05/19/24 07:05 05/19/24 05:56 94 Room Air 05/19/24 03:59 92 Room Air 05/18/24 22:31 Room Air 05/18/24 22:31 93 Room Air 05/18/24 22:17 05/18/24 21:23 93 05/18/24 21:13 Laboratory Results Laboratory Results - last 24 hr 05/18/24 05/18/24 05/18/24 13:50 14:36 19:41 WBC 7.73 RBC 3.02 L Hgb 9.4 L Hct 28.2 L MCV 93.4 MCH 31.1 MCHC 33.3 RDW Std Deviation 49.0 H RDW Coeff of [place] 14.6 H Plt Count 158 MPV 11.6 Immature Gran % (Auto) 0.4 Neut % (Auto) 78.0 Lymph % (Auto) 9.8 Alcorn % (Auto) 8.9 Eos % (Auto) 2.5 Baso % (Auto) 0.4 Neut # (Auto) 6.03 Lymph # (Auto) 0.76 L [place] # (Auto) 0.69 H Eos # (Auto) 0.19 Baso # (Auto) 0.03 Immature Gran # (Auto) 0.03 Sodium 138 Potassium 3.1 L Chloride 102 Carbon Dioxide 25 Anion Gap 11 BUN 97 H Creatinine 4.64 H* Est Cr Clr Drug Dosing 17.3 eGFR 12.06 BUN/Creatinine Ratio 20.9 H Glucose 228 H POC Glucose Calcium 8.6 Magnesium 2.5 H Total Bilirubin 0.6 AST 15 ALT 8 Alkaline Phosphatase 119 H Troponin I High Sens 18.6 B-Natriuretic Peptide 992 H Total Protein 6.4 Albumin 3.7 Globulin 2.7 Albumin/Globulin Ratio 1.4 TSH Free T4 Nasal Screen MRSA (PCR) Negative 05/18/24 05/19/24 05/19/24 22:14 06:40 07:54 WBC RBC Hgb Hct MCV MCH MCHC RDW Std Deviation RDW Coeff of [place] Plt Count MPV Immature Gran % (Auto) Neut % (Auto) Lymph % (Auto) [place]corn % (Auto) Eos % (Auto) Baso % (Auto) Neut # (Auto) Lymph # (Auto) [place]corn # (Auto) Eos # (Auto) Baso # (Auto) Immature Gran # (Auto) Sodium 140 Potassium 2.9 L Chloride 105 Carbon Dioxide 25 Anion Gap 10 BUN 98 H Creatinine 4.55 H* Est Cr Clr Drug Dosing 17.6 eGFR 12.35 BUN/Creatinine Ratio 21.5 H Glucose 125 H POC Glucose 187 H 139 H Calcium 8.9 Magnesium Total Bilirubin AST ALT Alkaline Phosphatase Troponin I High Sens B-Natriuretic Peptide Total Protein Albumin Globulin Albumin/Globulin Ratio TSH 4.635 H Free T4 0.92 Nasal Screen MRSA (PCR) Diagnostic Findings XR chest 1V portable COMPARISON STUDY: 04/14/2024 FINDINGS: Compared with a prior examination, mild vascular congestion is progressive. There is a small amount of fluid in the minor fissure. Heart size remains enlarged. A focal area of increased parenchymal density is present in the right cardiophrenic angle. IMPRESSION: Suspected CHF. Right basilar infiltrate not excluded. PG Care Time/CCT Total # of Minutes Spent Total Time Spent with Patient: Total time spent is greater than 50% in coordination of care (as documented) at patient's floor/unit and/or counseling patient: Coding Level of Care Code 37106 IN/OBS CONSULT LVL 5,80M Diagnoses Fluid overload E87.70 Chronic kidney disease, stage 5, kidney failure N18.5 Anemia D64.9 Anemia type: unspecified type Hypokalemia E87.6 (3) Anemia Anemia type: unspecified type Qualified Code(s): D64.9 - Anemia, unspecified
--- NOTE | 2024-05-19 09:29 | Consultation ---
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 Other Information That Helps Us Care for You: No Feels Safe at Home: Yes Safety Concerns: Feels Safe At This Time Childhood Exposure to Second-Hand Smoke: No Diet: diabetic and regular caffeine: Yes during the past year weight has: decreased > 10 lbs Dental Care, Regularly: No Physical Activity Frequency: Daily Seatbelt Use: always Sunscreen Use: No Do you think of yourself as: straight/heterosexual Gender Identity: Male Assistive Devices: Cane and Walker Results & Data Vital Signs (Past 12 Hours) Vital Signs Temp Pulse Pulse Pulse Pulse Resp BP 05/19/24 07:11 36.9 C 63 18 163/63 H 05/19/24 07:05 83 05/19/24 05:56 88 17 05/19/24 03:59 36.6 C 80 18 151/72 H 05/18/24 22:31 05/18/24 22:31 36.5 C 83 18 163/72 H 05/18/24 22:17 74 Pulse Ox O2 Del Method 05/19/24 07:11 93 Room Air 05/19/24 07:05 05/19/24 05:56 94 Room Air 05/19/24 03:59 92 Room Air 05/18/24 22:31 Room Air 05/18/24 22:31 93 Room Air 05/18/24 22:17
[2024-05-19] MEDS: POLYETHYLENE (MIRALAX) 17 GM PACK PO SCH (10:01)
[2024-05-19 10:55] LABS: Hepatitis B Surface Ab Quant < 3.00 mIU/mL (>or=10mIU/mL Immune); Hepatitis B Surface Antibody Non-Immune
[2024-05-19 12:45] LABS: Hep B Surface Ag with confirm Prelim Positive (Negative)
[2024-05-19] MEDS: ceFAZolin 3000MG 3,000 MG/72.5 ML BAG IV SCH (13:44)
--- NOTE | 2024-05-19 13:56 | Pre Anesthesia Assessment ---
Date of Service May 19, 2024 Pre Sedation Assessment Vital Signs Temp Pulse Pulse Pulse Pulse Resp BP 05/19/24 11:05 36.8 C 81 18 05/19/24 07:11 36.9 C 63 18 05/19/24 07:05 83 05/19/24 05:56 88 17 05/19/24 03:59 36.6 C 80 18 05/18/24 22:31 05/18/24 22:31 36.5 C 83 18 05/18/24 22:17 74 05/18/24 21:23 72 05/18/24 21:13 05/18/24 20:33 75 22 05/18/24 20:15 68 14 05/18/24 20:00 180/77 H 05/18/24 19:57 67 15 05/18/24 19:45 67 12 05/18/24 19:30 192/87 H 05/18/24 19:27 67 18 05/18/24 19:18 62 16 05/18/24 18:30 163/89 H 05/18/24 18:30 66 13 05/18/24 18:25 169/105 H 05/18/24 18:13 69 05/18/24 18:09 67 15 05/18/24 17:33 70 20 05/18/24 17:30 162/93 H 05/18/24 17:00 62 14 159/76 H 05/18/24 16:30 68 15 154/67 H 05/18/24 16:09 72 23 160/78 H 05/18/24 15:36 64 15 05/18/24 15:00 68 13 05/18/24 14:37 69 05/18/24 14:13 66 BP Pulse Ox O2 Del Method 05/19/24 11:05 147/66 H 93 Room Air 05/19/24 07:11 163/63 H 93 Room Air 05/19/24 07:05 05/19/24 05:56 94 Room Air 05/19/24 03:59 151/72 H 92 Room Air 05/18/24 22:31 Room Air 05/18/24 22:31 163/72 H 93 Room Air 05/18/24 22:17 05/18/24 21:23 93 05/18/24 21:13 179/80 H 05/18/24 20:33 05/18/24 20:15 95 05/18/24 20:00 05/18/24 19:57 96 05/18/24 19:45 96 05/18/24 19:30 05/18/24 19:27 96 05/18/24 19:18 96 05/18/24 18:30 05/18/24 18:30 96 05/18/24 18:25 05/18/24 18:13 05/18/24 18:09 97 05/18/24 17:33 96 05/18/24 17:30 05/18/24 17:00 96 05/18/24 16:30 97 05/18/24 16:09 05/18/24 15:36 05/18/24 15:00 05/18/24 14:37 05/18/24 14:13 96 Room Air Cardiovascular RRR, no murmur, no edema Respiratory normal respiratory effort, lungs clear to auscultation Pre-Sedation Airway Assessment Smoking Status: Former smoker Short, Thick Neck: Yes Thyromental Distance: > or= 3.5 Finger Breadths Oral Cavity: + Dentures Mallampati Class: III ASA: ASA4 NPO Status Date of Last Intake of Fluids: 05/18/24 Time of Last Intake of Fluids: 08:58 Last Oral Intake of Fluids Comment: sips with pills Date of Last Intake of Solid Food: 05/18/24 Procedure Planning Contraindications for Sedation: none Current Medications Reviewed: Yes Notes The planned sedation has been discussed with the patient. Informed Consent was obtained. I have identified the patient, determined the appropriateness of sedation and have assessed the patient immediately prior to the procedure. All medicine(s) and interventions are by my order.
[2024-05-19] MEDS: MIDAZOLAM HCL 1 MG/ML 2ML VIAL ONE (14:00)
[2024-05-19] MEDS: fentaNYL citrate PF 100 MCG/2 ML VIAL ONE (14:00)
[2024-05-19] MEDS: LIDOCAINE 1% LOCAL 20 ML VIAL ONE (14:14)
[2024-05-19] MEDS: HEPARIN SOD (PORCINE) 5,000 UNITS/ML VIAL ONE (14:15)
--- NOTE | 2024-05-19 14:16 | Operative Report ---
Post Operative Report Pre & Post Diagnosis Operation Date: 05/19/24 09:45 Pre-Op Diagnosis: ADVANCED CKD, VOLUME OVERLOAD I identified the patient and participated in the time-out.: Yes Procedure Operation Date: 05/19/24 09:45 Actual Procedures p Insertion of Perm Cath,Right Internal Jugular Approach, Ultrasound Localization of Right Internal Jugular Vein, Fluoroscopy for Positioning, Moderate Sedation [id number](Right) - Jones Carrizales MD Surgeon Jones Carrizales MD Service Mechanic None Estimated Blood Loss 3 Findings Consistent with Post-Op Diagnosis Specimens none Anesthesia Type RN Sedation Complications none Disposition Accompanied Patient To Recovery: No Disposition: Recovery Room Indications This is a 79-year-old gentleman who has a fistula which has not matured. Is in need of dialysis at this point. PermCath was recommended. I have discussed the risks options and benefits of the procedure with the patient. The patient understands the risks options and benefits and agrees to the procedure. Description of Procedure Patient was taken to the angio suite and placed in the supine position. The right side of the neck and chest wall were prepped and draped in a sterile manner. The patient was identified and a timeout performed. Local anesthesia was then administered to the appropriate areas of the neck and chest wall. Ultrasound was then used to locate the right internal jugular vein. The vein compressed easily, had no filing defects, and was patent. The vein was then punctured under direct ultrasound imaging. A guidewire was then passed centrally under fluoroscopic imaging. A stab wound was then made in the anterior chest wall and a 19 cm permcath was passed from the stab wound on the chest wall to the puncture site on the neck. The puncture site was then dilated till the 14Fr peel away sheath was inserted. The permcath was then inserted through the sheath to a central position in the distal superior vena cava. The peel away sheath was then removed. The catheter was then sutured in place using nylon sutures. The puncture was then closed using a 4-0 Vicryl subcuticular suture. Dermabond was used for a dressing on the puncture site. Both ports aspirated and flushed easily and were then packed with heparin. A sterile dressing was applied to the catheter. The patient left the operation room in satisfactory condition and tolerated the procedure well. All needle and sponge counts were correct at the end of the procedure. I attest to the content of the Intraoperative Record and any orders documented therein. Any exceptions are noted below.
--- NOTE | 2024-05-19 14:17 | Post Anesthesia Assessment ---
Date of Service May 19, 2024 Post Sedation Assessment Vital Signs Temp Pulse Pulse Pulse Pulse Resp BP 05/19/24 14:15 59 L 20 05/19/24 14:10 61 20 05/19/24 14:05 64 22 05/19/24 14:00 68 25 H 05/19/24 13:55 67 21 05/19/24 11:05 36.8 C 81 18 05/19/24 07:11 36.9 C 63 18 05/19/24 07:05 83 05/19/24 05:56 88 17 05/19/24 03:59 36.6 C 80 18 05/18/24 22:31 05/18/24 22:31 36.5 C 83 18 05/18/24 22:17 74 05/18/24 21:23 72 05/18/24 21:13 05/18/24 20:33 75 22 05/18/24 20:15 68 14 05/18/24 20:00 180/77 H 05/18/24 19:57 67 15 05/18/24 19:45 67 12 05/18/24 19:30 192/87 H 05/18/24 19:27 67 18 05/18/24 19:18 62 16 05/18/24 18:30 163/89 H 05/18/24 18:30 66 13 05/18/24 18:25 169/105 H 05/18/24 18:13 69 05/18/24 18:09 67 15 05/18/24 17:33 70 20 05/18/24 17:30 162/93 H 05/18/24 17:00 62 14 159/76 H 05/18/24 16:30 68 15 154/67 H 05/18/24 16:09 72 23 160/78 H 05/18/24 15:36 64 15 05/18/24 15:00 68 13 05/18/24 14:37 69 BP Pulse Ox O2 Del Method O2 Flow Rate 05/19/24 14:15 148/62 H 100 Oxymask 4 05/19/24 14:10 159/82 H 100 Oxymask 4 05/19/24 14:05 155/73 H 100 Oxymask 4 05/19/24 14:00 159/82 H 100 Oxymask 4 05/19/24 13:55 161/64 H 96 Oxymask 4 05/19/24 11:05 147/66 H 93 Room Air 05/19/24 07:11 163/63 H 93 Room Air 05/19/24 07:05 05/19/24 05:56 94 Room Air 05/19/24 03:59 151/72 H 92 Room Air 05/18/24 22:31 Room Air 05/18/24 22:31 163/72 H 93 Room Air 05/18/24 22:17 05/18/24 21:23 93 05/18/24 21:13 179/80 H 05/18/24 20:33 05/18/24 20:15 95 05/18/24 20:00 05/18/24 19:57 96 05/18/24 19:45 96 05/18/24 19:30 05/18/24 19:27 96 05/18/24 19:18 96 05/18/24 18:30 05/18/24 18:30 96 05/18/24 18:25 05/18/24 18:13 05/18/24 18:09 97 05/18/24 17:33 96 05/18/24 17:30 05/18/24 17:00 96 05/18/24 16:30 97 05/18/24 16:09 05/18/24 15:36 05/18/24 15:00 05/18/24 14:37 Recovery Score Activity: Moves 4 extremities Respiration: Deep Breath/Cough Circulation: +/-20% PreAnes Value Consciousness: Fully Awake Oxygen Saturation: > 92% On Room Air Post Anesthesia Score: 10 Discharge Sedation Level of Care: Fast Track Phase II Post Sedation Plan On clinical assessment, the patient appears to have tolerated the sedation without complications. Patient is recovering as anticipated. Patient will continue to be monitored by nursing and may be discharged when sedation discharge criteria are met per below protocol. Upon Completions of procedure up to 15 minutes continue every 5 minute vital signs and the P.A.R. score; then discharge to a Phase I or Fast Track to Phase II per the following guidelines: * Discharge Patient to appropriate Phase II area if PAR is 8 or greater or return to pre- procedure baseline. The post - procedure orders will be as directed. * If PAR score is less than 8 or not return to pre-procedure baseline then patient will follow Phase I monitoring till PAR is reached for Phase II. The Phase I may be done in procedure room or may call to secure a Phase I area. * If naloxone or flumazenil are used for reversal, hold in Phase I for continued monitoring from when last reversal dose was given for a minimum of 60 minutes or longer pending the nurse and/or physician discretion of patient condition before discharge to Phase II. Please call the Sedation Physician to re-evaluate and complete post-note for discharge to Phase II area. Do NOT discharge from procedure sedation or Phase 1 until post- sedation evaluation note is complete by procedure /sedation MD Sedation Discharge Instructions to be given to the patient at discharge to home.
--- NOTE | 2024-05-19 19:55 | Hospitalist Progress Note ---
Date of Service May 19, 2024 Assessment & Plan (1) Fluid overload: (2) Pulmonary edema: (3) Acute kidney injury superimposed on CKD: (4) Chronic kidney disease, stage 5, kidney failure: (5) Anemia: (6) Left bundle-branch block: (7) Diabetic nephropathy associated with type 2 diabetes mellitus: (8) Hypertension: (9) Benign prostatic hyperplasia: (10) Asthma: (11) Morbid obesity: (12) Hx of temporal arteritis: (13) Type 2 diabetes mellitus: (14) Hepatitis B surface antigen positive: Plan 79yo male with history of CKD stage 4/5, recent LUE AV fistula creation (04/21/24), morbid obesity BMI ~40, T2DM, HTN, previous temporal arteritis treated with 12+ months of steroid therapy - now off such, gout, presumed CAD, GERD, LBBB -- presented with pulm edema/volume overload/progressive weight gain. His volume overload is likely on the basis of advanced CKD rather than a primary cardiac issue. #volume overload / pulmonary edema - in the face of IDALMIS on CKD stage 4/5 - now at ESRD status -- * despite large dose of IV bumex yesterday (3mg) patient had little diuresis with such and his weight is unchanged * I corresponded with Dr Guillen this am; Dr Guillen & Dr Lance both feel that HD should be initiated in light of volume overload and progressive deteriation of renal function * thus, Dr Carrizales from vascular surgery was consulted and HD catheter was placed * this was followed by HD session #1 (abbreviated treatment) - by report tolerated his first treatment without difficulty * plan is for HD session #2 tomorrow * appreciate nephrology & vascular surgery assistance #hypokalemia - * K 2.9 this am - replace IV + po * repeat level in am * recent mag level noted to be normal #T2DM - * a1c 7.9% in 01/31 * repeat a1c while here * lantus-novolog * control thus far adequate #LBBB - * chronic, no Rx needed * no obvious ischemic symptoms at this time #HTN - * cont amlodipine * cont coreg BID * cont imdur BID * cont losartan (in laurie of olmesartan) #morbid obesity - BMI ~39/40 #asthma - * no exacerbation at this time * doubt contributing to dyspnea, etc #h/o chronic diastolic CHF - * could consider repeat echo while here but suspect his volume overload is kidney-related rather than diastolic CHF; defer echo for now #h/o temporal arteritis - * resolved, in remission * no recent headaches * no recent prednisone usage #anemia - * 2nd to advanced CKD * h/h at baseline #DVT proph - * since he had oozing from his permcath site today will hold off on chemical means for DVT proph * in the next day or two start heparin SC if H/H stable and permcath site is clean #HepB surface Ag + * this is prelim + * hopefully false positive as his HepBsAg was negative just 10 days earlier * a confirmatory test was dispatched & is pending pt's updated at bedside today care d/w nephrology, Dr Guillen Admission and Anticipated Discharge Date Admission Date: May 18, 2024 Subjective patient underwent HD catheter placement by Dr Carrizales this am early this afternoon when I came to check on Mr Broderick it was noted that his catheter was oozing blood myself & his bedside nurse spent about 15-20min applying direct pressure to the catheter site the oozing ultimately stopped later in the afternoon he went for his first HD session and tolerated such by report pt continues with mild dyspnea, abd bloating/body wall edema, and leg edema b/l pt's was at bedside during the visit Review of Systems Review of Systems: CV - no chest pain GI - no abd pain or N/V Physical Exam Physical Exam: gen - laying in bed comfortably w/o distress; pleasant HENT - MMM neck - JVD present heart - RRR, s1 s2, 1/6 JAKE LSB chest wall - new HD catheter, tunneled, right IJ; oozing from insertion site on chest wall; pressure applied (see this note) lungs - mild b/l basilar rales, decreased BS bases b/l abd - distended with body-wall edema, BS+, NT ext - 1-2+ pitting edema from distal thighs down to feet; pulses feet 1-2+ b/l skin - stasis changes b/l shins Results & Data Results & Data Vital Signs (Past 12 Hours) Vital Signs Temp Pulse Pulse Pulse Resp BP BP 05/19/24 19:14 36.5 C 69 160/69 H 05/19/24 18:30 63 154/66 H 05/19/24 18:00 62 145/68 H 05/19/24 17:30 64 147/62 H 05/19/24 17:00 65 143/62 H 05/19/24 16:56 66 141/63 H 05/19/24 16:49 36.6 C 67 05/19/24 15:03 36.7 C 57 L 18 147/64 H 05/19/24 14:44 60 05/19/24 14:30 36.7 C 59 L 18 153/65 H 05/19/24 14:15 59 L 20 148/62 H 05/19/24 14:10 61 20 159/82 H 05/19/24 14:05 64 22 155/73 H 05/19/24 14:00 68 25 H 159/82 H 05/19/24 13:55 67 21 161/64 H 05/19/24 11:05 36.8 C 81 18 147/66 H 05/19/24 08:00 Pulse Ox O2 Del Method O2 Flow Rate 05/19/24 19:14 05/19/24 18:30 05/19/24 18:00 05/19/24 17:30 05/19/24 17:00 05/19/24 16:56 05/19/24 16:49 05/19/24 15:03 92 Room Air 05/19/24 14:44 05/19/24 14:30 92 Room Air 05/19/24 14:15 100 Oxymask 4 05/19/24 14:10 100 Oxymask 4 05/19/24 14:05 100 Oxymask 4 05/19/24 14:00 100 Oxymask 4 05/19/24 13:55 96 Oxymask 4 05/19/24 11:05 93 Room Air 05/19/24 08:00 Room Air Laboratory Results Laboratory Results - last 24 hr 05/18/24 05/18/24 05/18/24 13:50 14:36 19:41 Sodium Potassium Chloride Carbon Dioxide Anion Gap BUN Creatinine Est Cr Clr Drug Dosing eGFR BUN/Creatinine Ratio Glucose POC Glucose Calcium TSH Free T4 Nasal Screen MRSA (PCR) Negative Hep Bs Antigen Prelim Positive A Hep Bs Ag Confirmation Pending Hep Bs Antibody Non-Immune Hep Bs Antibody, Quant < 3.00 Hep B Core IgM Ab Pending 05/18/24 05/19/24 05/19/24 22:14 06:40 07:54 Sodium 140 Potassium 2.9 L Chloride 105 Carbon Dioxide 25 Anion Gap 10 BUN 98 H Creatinine 4.55 H* Est Cr Clr Drug Dosing 17.6 eGFR 12.35 BUN/Creatinine Ratio 21.5 H Glucose 125 H POC Glucose 187 H 139 H Calcium 8.9 TSH 4.635 H Free T4 0.92 Nasal Screen MRSA (PCR) Hep Bs Antigen Hep Bs Ag Confirmation Hep Bs Antibody Hep Bs Antibody, Quant Hep B Core IgM Ab 05/19/24 05/19/24 05/19/24 11:58 13:27 16:00 Sodium Potassium Chloride Carbon Dioxide Anion Gap BUN Creatinine Est Cr Clr Drug Dosing eGFR BUN/Creatinine Ratio Glucose POC Glucose 139 H 120 H 139 H Calcium TSH Free T4 Nasal Screen MRSA (PCR) Hep Bs Antigen Hep Bs Ag Confirmation Hep Bs Antibody Hep Bs Antibody, Quant Hep B Core IgM Ab PG Care Time/CCT Total # of Minutes Spent Total Time Spent with Patient: Total time spent is greater than 50% in coordination of care (as documented) at patient's floor/unit and/or counseling patient: Coding Level of Care Code 33931 SUB INP/OBS CARE 2/35MIN Diagnoses Fluid overload E87.70 Pulmonary edema J81.1 Acute kidney injury superimposed on CKD N17.9; N18.9 Chronic kidney disease, stage 5, kidney failure N18.5 Anemia D64.9 Anemia type: unspecified type Left bundle-branch block I44.7 Diabetic nephropathy associated with type 2 diabetes mellitus E11.21 Primary hypertension I10 Hypertension type: primary hypertension Benign prostatic hyperplasia without lower urinary tract symptoms N40.0 Lower urinary tract symptom presence: symptoms absent Asthma J45.909 Morbid obesity E66.01 Hx of temporal arteritis Z87.39 Type 2 diabetes mellitus E11.9 Hepatitis B surface antigen positive R76.8 (5) Anemia Anemia type: unspecified type Qualified Code(s): D64.9 - Anemia, unspecified (8) Hypertension Hypertension type: primary hypertension Qualified Code(s): I10 - Essential (primary) hypertension (9) Benign prostatic hyperplasia Lower urinary tract symptom presence: symptoms absent Qualified Code(s): N40.0 - Benign prostatic hyperplasia without lower urinary tract symptoms
[2024-05-20 06:51] LABS: Hematocrit (blood only) 27.7 % (42.0-52.0); Hemoglobin 9.3 g/dl (14.0-18.0); Mean Corpuscular Hgb Conc 33.6 g/dL (32.0-36.0); Mean Corpuscular Volume 92.3 fL (80.0-100.0); Mean Platelet Volume 11.8 fL (9.4-12.4); Platelet Count 159 K/uL (130-400); RDW Coefficient of Variation 14.3 % (11.5-14.5); RDW Standard Deviation 47.7 fL (36.4-46.3); White Blood Count 8.42 K/ul (4.8-10.8)
[2024-05-20 07:21] LABS: Albumin Level 3.6 gm/dl (3.4-5.0); BUN Creatinine Ratio 19.8 (10-20); Calcium 8.8 mg/dl (8.6-10.3); Creatinine Clr Calc Pharmacy 22.6 ml/min; Phosphorus 4.1 mg/dl (2.5-4.9); Potassium 3.3 mmol/L (3.5-5.1)
[2024-05-20 07:41] LABS: Ferritin 404.3 ng/ml (8-388)
--- NOTE | 2024-05-20 08:51 | Nephrology Progress Note ---
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 Broderick was evaluated in his hospital room this morning. He was being prepared for dialysis. Mr. Broderick underwent right IJ TCC placement 05/19/2024. Overnight he had oozing from the catheter site. This was controlled with a pressure bandage. Mr. Broderick currently denies angina, dyspnea. He reports that he tolerated his first dialysis session yesterday without complication. 1.5 L UF was obtained. Review of Systems Constitutional: no fever Eyes: no problem reported Ear, Nose, Mouth, Throat: no problem reported Respiratory: no cough and no dyspnea Cardiovascular: no chest pain Gastrointestinal: no abdominal pain, no nausea, no vomiting and no diarrhea/loose stools Integumentary: no rash Physical Exam Constitutional: + overweight; not in distress Eyes: PERRL, conjunctivae normal, anicteric sclerae ENMT: Ears: + hearing impairment Neck: trachea midline, no thyromegaly R IJ TCC with pressure bandage in place Respiratory: normal respiratory effort, lungs clear to auscultation Cardiovascular: Rate/Rhythm: regular rate and regular rhythm (no rub) Extremities: + edema (2+ pretibial pitting edema) and + AV fistula (+ bruit) L BC AVF + bruit. Venous limb is palpable 4 inches proximal to anastamotic site Gastrointestinal (Abdomen): Inspection/Auscultation: normal bowel sounds; abdomen not distended Percussion/Palpation: no guarding Musculoskeletal: Extremities: no cyanosis Skin: no rashes, warm and dry Neurologic: awake; not confused Results & Data Vital Signs (Past 12 Hours) Vital Signs Temp Pulse Pulse Pulse Resp BP Pulse Ox 05/20/24 07:46 36.7 C 63 18 163/64 H 95 05/20/24 07:10 68 05/20/24 03:18 37.1 C 64 18 158/57 H 93 05/19/24 23:07 36.7 C 69 18 154/63 H 93 05/19/24 21:51 65 05/19/24 21:32 O2 Del Method 05/20/24 07:46 Room Air 05/20/24 07:10 05/20/24 03:18 Room Air 05/19/24 23:07 Room Air 05/19/24 21:51 05/19/24 21:32 Room Air Laboratory Results Laboratory Results - last 24 hr 05/18/24 05/18/24 05/19/24 13:50 14:36 06:40 WBC RBC Hgb Hct MCV MCH MCHC RDW Std Deviation RDW Coeff of [place] Plt Count MPV Sodium Potassium Chloride Carbon Dioxide Anion Gap BUN Creatinine Est Cr Clr Drug Dosing eGFR BUN/Creatinine Ratio Glucose POC Glucose Calcium Phosphorus Iron TIBC Transferrin Transferrin % Sat Ferritin Albumin Free T4 0.92 Hep Bs Antigen Prelim Positive A Hep Bs Ag Confirmation Pending Hep Bs Antibody Non-Immune Hep Bs Antibody, Quant < 3.00 Hep B Core IgM Ab Pending 05/19/24 05/19/24 05/19/24 11:58 13:27 16:00 WBC RBC Hgb Hct MCV MCH MCHC RDW Std Deviation RDW Coeff of [place] Plt Count MPV Sodium Potassium Chloride Carbon Dioxide Anion Gap BUN Creatinine Est Cr Clr Drug Dosing eGFR BUN/Creatinine Ratio Glucose POC Glucose 139 H 120 H 139 H Calcium Phosphorus Iron TIBC Transferrin Transferrin % Sat Ferritin Albumin Free T4 Hep Bs Antigen Hep Bs Ag Confirmation Hep Bs Antibody Hep Bs Antibody, Quant Hep B Core IgM Ab 05/19/24 05/20/24 05/20/24 20:03 06:00 07:49 WBC 8.42 RBC 3.00 L Hgb 9.3 L Hct 27.7 L MCV 92.3 MCH 31.0 MCHC 33.6 RDW Std Deviation 47.7 H RDW Coeff of [place] 14.3 Plt Count 159 MPV 11.8 Sodium 140 Potassium 3.3 L Chloride 105 Carbon Dioxide 24 Anion Gap 11 BUN 70 H D Creatinine 3.54 H D Est Cr Clr Drug Dosing 22.6 eGFR 16.69 BUN/Creatinine Ratio 19.8 Glucose 172 H POC Glucose 168 H 184 H Calcium 8.8 Phosphorus 4.1 Iron 40 TIBC 232 L Transferrin 166 L Transferrin % Sat 17 L Ferritin 404.3 H Albumin 3.6 Free T4 Hep Bs Antigen Hep Bs Ag Confirmation Hep Bs Antibody Hep Bs Antibody, Quant Hep B Core IgM Ab PG Care Time/CCT Total # of Minutes Spent Total Time Spent with Patient: Total time spent is greater than 50% in coordination of care (as documented) at patient's floor/unit and/or counseling patient: Coding Level of Care Code 87350 SUB INP/OBS CARE 3/50MIN Diagnoses End-stage renal disease needing dialysis N18.6; Z99.2 Anemia D64.9 Anemia type: unspecified type (2) Anemia Anemia type: unspecified type Qualified Code(s): D64.9 - Anemia, unspecified
[2024-05-20] MEDS ORDERED: POTASSIUM CHLORIDE 10 MEQ TABCR PO STA (10:20)
--- NOTE | 2024-05-20 12:27 | Electrocardiogram Report ---
Test Reason : Blood Pressure : */* mmHG Vent. Rate : 70 BPM Atrial Rate : 70 BPM P-R Int : 248 ms QRS Dur : 162 ms QT Int : 444 ms P-R-T Axes : 54 107 -40 degrees QTcB Int : 479 ms Sinus rhythm with 1st degree A-V block Rightward axis Left bundle branch block Abnormal ECG When compared with ECG of 18-May-2024 13:55, No significant change Confirmed by Dipesh Vincent ([id number]) on 05/20/2024 12:27:06 PM Referred By: Ralph Lance Confirmed By: Dipesh Vincent
[2024-05-20] MEDS ORDERED: Nursing to Pharmacy Communication SCH (13:45)
[2024-05-20] MEDS: POTASSIUM CHLORIDE 10 MEQ TABCR PO STA (14:14)
[2024-05-20] MEDS: IRON SUCROSE 200 MG in SODIUM CHLORIDE 0.9% 100 ML IV SCH (14:14)
--- NOTE | 2024-05-20 21:21 | Hospitalist Progress Note ---
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 His volume overload is likely on the basis of advanced CKD rather than a primary cardiac issue. #volume overload / pulmonary edema - in the face of IDALMIS on CKD stage 4/5 - now at ESRD status -- * 05/19 - HD catheter placed by Dr Carrizales * 05/19 - first HD session * 05/20, today - 2nd HD session * permcath working well; no residual bleeding issues * tolerating HD thus far * plan is for session #3 on 05/22/24 * appreciate nephrology & vascular surgery assistance #hypokalemia - * lowest K 2.9 this admission * replaced, but still low today * give additional K supplementation today * repeat level in am * recent mag level noted to be normal #T2DM - * a1c 7.9% in 01/31 * repeat a1c in am * lantus-novolog * control thus far adequate #LBBB - * chronic, no Rx needed * no obvious ischemic symptoms at this time #HTN - * cont amlodipine * cont coreg BID * cont imdur BID * cont losartan (in [place]ur[place] of olmesartan) #morbid obesity - BMI ~39/40 #asthma - * no exacerbation at this time * doubt contributing to dyspnea, etc #h/o chronic diastolic CHF - * could consider repeat echo while here but suspect his volume overload is kidney-related rather than diastolic CHF; defer echo for now #h/o temporal arteritis - * resolved, in remission * no recent headaches * no recent prednisone usage #anemia - * 2nd to advanced CKD * h/h at baseline * Fe studies reviewed; Dr Lance has ordered IV venofer #DVT proph - * since no further oozing from his permcath site will start heparin 5000 units BID on 05/21/24 #HepB surface Ag + * this is prelim + * hopefully false positive as his HepBsAg was negative just 10 days earlier * a confirmatory test was dispatched & is pending pt's updated at bedside again today appreciate nephrology assistance Admission and Anticipated Discharge Date Admission Date: May 18, 2024 Subjective tele overnight wnl no bleeding issues from his permcath overnight or today had 2nd HD session - 2 L UF removed he thinks he hasn't noticed any change in his dyspnea but it is mainly with exertion - and he only walked for the first time today into the hallway eating better, but upset about the lack of flavoring for certain foods (rice, etc) he is also having a hard time chewing due to very few [place] teeth present at bedside Review of Systems Review of Systems: CV - no chest pain pulm - no cough reported GI - no abd pain Physical Exam Physical Exam: gen - sitting at side of bed, NAD HENT - MMM neck - no JVD at 90 degrees heart - RRR, s1 s2, 1/6 JAKE LSB chest wall - new HD catheter, tunneled, right IJ -- no bleeding today; clean lungs - minimal b/l basilar rales, decreased BS bases b/l abd - distended with body-wall edema (suspected), otherwise soft, BS+, NT ext - 1+ pitting edema from knees to feet; pulses feet 1-2+ b/l skin - stasis changes b/l shins Results & Data Results & Data Vital Signs (Past 12 Hours) Vital Signs Temp Pulse Pulse Pulse Resp BP BP 05/20/24 20:23 37.0 C 70 18 169/66 H 05/20/24 15:26 36.5 C 69 20 163/67 H 05/20/24 14:02 65 05/20/24 13:00 36.5 C 62 167/70 H 05/20/24 12:30 62 135/60 05/20/24 12:00 59 L 143/59 H 05/20/24 11:40 05/20/24 11:30 61 157/66 H 05/20/24 11:00 60 155/60 H 05/20/24 10:30 65 146/63 H 05/20/24 10:00 70 151/60 H 05/20/24 09:45 36.5 C 76 Pulse Ox O2 Del Method 05/20/24 20:23 95 Room Air 05/20/24 15:26 95 Room Air 05/20/24 14:02 05/20/24 13:00 05/20/24 12:30 05/20/24 12:00 05/20/24 11:40 Room Air 05/20/24 11:30 05/20/24 11:00 05/20/24 10:30 05/20/24 10:00 05/20/24 09:45 Laboratory Results Laboratory Results - last 24 hr 05/20/24 05/20/24 05/20/24 06:00 07:49 17:03 WBC 8.42 RBC 3.00 L Hgb 9.3 L Hct 27.7 L MCV 92.3 MCH 31.0 MCHC 33.6 RDW Std Deviation 47.7 H RDW Coeff of [place] 14.3 Plt Count 159 MPV 11.8 Sodium 140 Potassium 3.3 L Chloride 105 Carbon Dioxide 24 Anion Gap 11 BUN 70 H D Creatinine 3.54 H D Est Cr Clr Drug Dosing 22.6 eGFR 16.69 BUN/Creatinine Ratio 19.8 Glucose 172 H POC Glucose 184 H 236 H Calcium 8.8 Phosphorus 4.1 Iron 40 TIBC 232 L Transferrin 166 L Transferrin % Sat 17 L Ferritin 404.3 H Albumin 3.6 05/20/24 20:37 WBC RBC Hgb Hct MCV MCH MCHC RDW Std Deviation RDW Coeff of [place] Plt Count MPV Sodium Potassium Chloride Carbon Dioxide Anion Gap BUN Creatinine Est Cr Clr Drug Dosing eGFR BUN/Creatinine Ratio Glucose POC Glucose 165 H Calcium Phosphorus Iron TIBC Transferrin Transferrin % Sat Ferritin Albumin PG Care Time/CCT Total # of Minutes Spent Total Time Spent with Patient: Total time spent is greater than 50% in coordination of care (as documented) at patient's floor/unit and/or counseling patient: Coding Level of Care Code 91317 SUB INP/OBS CARE 2/35MIN Diagnoses End-stage renal disease needing dialysis N18.6; Z99.2 Fluid overload E87.70 Pulmonary edema J81.1 Acute kidney injury superimposed on CKD N17.9; N18.9 Chronic kidney disease, stage 5, kidney failure N18.5 Anemia D64.9 Anemia type: unspecified type Left bundle-branch block I44.7 Diabetic nephropathy associated with type 2 diabetes mellitus E11.21 Primary hypertension I10 Hypertension type: primary hypertension Benign prostatic hyperplasia without lower urinary tract symptoms N40.0 Lower urinary tract symptom presence: symptoms absent Asthma J45.909 Morbid obesity E66.01 Hx of temporal arteritis Z87.39 Type 2 diabetes mellitus E11.9 Hepatitis B surface antigen positive R76.8 Hypokalemia E87.6 (6) Anemia Anemia type: unspecified type Qualified Code(s): D64.9 - Anemia, unspecified (9) Hypertension Hypertension type: primary hypertension Qualified Code(s): I10 - Essential (p rimary) hypertension (10) Benign prostatic hyperplasia Lower urinary tract symptom presence: symptoms absent Qualified Code(s): N40.0 - Benign prostatic hyperplasia without lower urinary tract symptoms
[2024-05-21] MEDS: hydrOXYzine HCl 10 MG TAB PO PRN (01:46)
[2024-05-21 07:11] LABS: Hematocrit (blood only) 27.3 % (42.0-52.0); Hemoglobin 8.9 g/dl (14.0-18.0); Mean Corpuscular Hgb Conc 32.6 g/dL (32.0-36.0); Mean Corpuscular Volume 95.1 fL (80.0-100.0); Mean Platelet Volume 11.4 fL (9.4-12.4); Platelet Count 155 K/uL (130-400); RDW Coefficient of Variation 14.4 % (11.5-14.5); RDW Standard Deviation 49.8 fL (36.4-46.3); Red Blood Count 2.87 M/uL (4.70-6.10); White Blood Count 8.42 K/ul (4.8-10.8)
[2024-05-21 07:26] LABS: Albumin Globulin Ratio 1.4 (0.9-2); Albumin Level 3.4 gm/dl (3.4-5.0); Bilirubin,Total 0.6 mg/dl (0.2-1.0); Calcium 8.6 mg/dl (8.6-10.3); Creatinine Clr Calc Pharmacy 26.4 ml/min; Globulin 2.4 gm/dl (2.5-4.0); Potassium 3.6 mmol/L (3.5-5.1); Total Protein 5.8 gm/dl (6.0-8.3)
[2024-05-21] MEDS: NEPHROCAPS PO SCH (07:58)
[2024-05-21] MEDS: HEPARIN SOD 5,000 UNIT/0.5 ML VIAL SQ SCH (07:59)
[2024-05-21 08:30] LABS: Estimated Average Glucose 163 mg/dl; Hemoglobin A1C 7.3 % (4.5-5.6)
--- NOTE | 2024-05-21 08:59 | Nephrology Progress Note ---
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 Broderick if possible Admission and Anticipated Discharge Date Admission Date: May 18, 2024 Subjective Mr. Broderick was evaluated in his hospital room this morning. He had his 2nd dialysis treatment yesterday and had 1L UF. There were no complications. Mr. Broderick reports that he slept poorly last night. He had severe anxiety and asks if it would be possible to have a private room so that his can stay with him. Review of Systems Constitutional: no fever Eyes: no problem reported Ear, Nose, Mouth, Throat: no problem reported Respiratory: no cough and no dyspnea Cardiovascular: no chest pain Gastrointestinal: no abdominal pain, no nausea, no vomiting and no diarrhea/loose stools Integumentary: no rash Physical Exam Constitutional: + overweight; not in distress Eyes: PERRL, conjunctivae normal, anicteric sclerae ENMT: Ears: + hearing impairment Neck: trachea midline, no thyromegaly Respiratory: normal respiratory effort, lungs clear to auscultation Cardiovascular: Rate/Rhythm: regular rate and regular rhythm (no rub) Extremities: + edema (1+ pretibial pitting edema) and + AV fistula (+ bruit) Gastrointestinal (Abdomen): Inspection/Auscultation: normal bowel sounds; abdomen not distended Percussion/Palpation: no guarding Musculoskeletal: Extremities: no cyanosis Skin: no rashes, warm and dry Neurologic: awake; not confused Results & Data Vital Signs (Past 12 Hours) Vital Signs Temp Pulse Pulse Resp BP Pulse Ox O2 Del Method 05/21/24 07:19 36.9 C 70 18 150/72 H 98 Room Air 05/21/24 07:03 65 05/21/24 03:23 37.1 C 104 H 18 165/73 H 93 Room Air 05/20/24 23:11 37.3 C 82 18 173/74 H 93 Room Air 05/20/24 22:10 76 05/20/24 22:01 Room Air Laboratory Results Laboratory Results - last 24 hr 05/20/24 05/20/24 05/21/24 17:03 20:37 01:08 WBC RBC Hgb Hct MCV MCH MCHC RDW Std Deviation RDW Coeff of [place] Plt Count MPV Sodium Potassium Chloride Carbon Dioxide Anion Gap BUN Creatinine Est Cr Clr Drug Dosing eGFR BUN/Creatinine Ratio Glucose POC Glucose 236 H 165 H 171 H Estimat Average Glucose Hemoglobin A1c Calcium Total Bilirubin AST ALT Alkaline Phosphatase Total Protein Albumin Globulin Albumin/Globulin Ratio 05/21/24 05/21/24 06:34 08:03 WBC 8.42 RBC 2.87 L Hgb 8.9 L Hct 27.3 L MCV 95.1 MCH 31.0 MCHC 32.6 RDW Std Deviation 49.8 H RDW Coeff of [place] 14.4 Plt Count 155 MPV 11.4 Sodium 139 Potassium 3.6 Chloride 105 Carbon Dioxide 27 Anion Gap 7 BUN 52 H Creatinine 3.06 H D Est Cr Clr Drug Dosing 26.4 eGFR 19.88 BUN/Creatinine Ratio 17.0 Glucose 172 H POC Glucose 167 H Estimat Average Glucose 163 Hemoglobin A1c 7.3 H Calcium 8.6 Total Bilirubin 0.6 AST 20 ALT 5 L Alkaline Phosphatase 92 Total Protein 5.8 L Albumin 3.4 Globulin 2.4 L Albumin/Globulin Ratio 1.4 PG Care Time/CCT Total # of Minutes Spent Total Time Spent with Patient: Total time spent is greater than 50% in coordination of care (as documented) at patient's floor/unit and/or counseling patient: Coding Level of Care Code 98131 SUB INP/OBS CARE 3/50MIN Diagnoses End-stage renal disease needing dialysis N18.6; Z99.2 Anemia D64.9 Anemia type: unspecified type (2) Anemia Anemia type: unspecified type Qualified Code(s): D64.9 - Anemia, unspecified
[2024-05-22 03:27] VITALS: RESP 18
--- NOTE | 2024-05-22 06:24 | Hospitalist Progress Note ---
Date of Service May 21, 2024 Assessment & Plan (1) End-stage renal disease needing dialysis: (2) Fluid overload: (3) Pulmonary edema: (4) Acute kidney injury superimposed on CKD: (5) Chronic kidney disease, stage 5, kidney failure: (6) Anemia: (7) Left bundle-branch block: (8) Diabetic nephropathy associated with type 2 diabetes mellitus: (9) Hypertension: (10) Benign prostatic hyperplasia: (11) Asthma: (12) Morbid obesity: (13) Hx of temporal arteritis: (14) Type 2 diabetes mellitus: (15) Hepatitis B surface antigen positive: (16) Hypokalemia: Plan 79yo male with history of CKD stage 4/5, recent LUE AV fistula creation (04/21/24), morbid obesity BMI ~40, T2DM, HTN, previous temporal arteritis treated with 12+ months of steroid therapy - now off such, gout, presumed CAD, GERD, LBBB -- presented with pulm edema/volume overload/progressive weight gain. His volume overload is on the basis of advanced CKD / development of ESRD rather than a primary cardiac issue. #volume overload / pulmonary edema - in the face of IDALMIS on CKD stage 4/5 - now at ESRD status -- * 05/19 - HD catheter placed by Dr Carrizales * 05/19 - first HD session * 05/20 - 2nd HD session * tolerated both sessions * session #3 tomorrow, 05/22 * permcath working well; no residual bleeding issues * patient plans to dialyze as outpatient at [facility] in [place]; chair time/schedule uncertain * appreciate nephrology & vascular surgery assistance #hypokalemia - * lowest K 2.9 this admission * replaced and resolved #T2DM - * a1c 7.9% in 01/31 * a1c 7.3% this admission * cont lantus-novolog * mildly high while here - adjust both insulins #LBBB - * chronic, no Rx needed * no obvious ischemic symptoms at this time #HTN - * cont amlodipine * cont coreg BID * cont imdur BID * cont losartan (in [place] of olmesartan) #morbid obesity - BMI ~39/40 #asthma - * no exacerbation at this time * doubt contributing to dyspnea, etc #h/o chronic diastolic CHF - * could consider repeat echo while here but suspect his volume overload is kidney-related rather than diastolic CHF; thus defer echo for now #h/o temporal arteritis - * resolved, in remission * no recent headaches * no recent prednisone usage #anemia - * 2nd to advanced CKD * h/h at baseline * Fe studies reviewed; Dr Lance has ordered IV venofer; dose #2 today #DVT proph - * heparin 5000 units BID #HepB surface Ag + * this is prelim + * hopefully false positive as his HepBsAg was negative just 10 days earlier * a confirmatory test was dispatched & is pending - again expect it to be negative * gave reassurances to re: such pt's updated at bedside again today appreciate nephrology assistance can likely d/c telemetry soon Admission and Anticipated Discharge Date Admission Date: May 18, 2024 Subjective patient had significant anxiety overnight which then made him feel short of breath he was anxious because he was worried about his driving home from the hospital back to their home (45 min away) he feels better today - much less anxious eating ok he walked in the hallway today - less dyspnea than previous we discussed the HepBsAg test being positive but I told them I suspect it is falsely negative discussed that with HD he will make less urine and void significantly less was wondering why he wasn't voiding that often tele overnight - stable Review of Systems Review of Systems: CV - no chest pain pulm - no dyspnea at rest GI - no abd pain or N/V; had stool 05/20 Physical Exam Physical Exam: gen - sitting at side of bed, NAD; looks better today HENT - MMM neck - no obvious JVD heart - RRR, s1 s2, 1/6 JAKE LSB chest wall - new HD catheter, tunneled, right IJ -- no bleeding lungs - mild b/l basilar rales, improved BS bases b/l, no wheezing, no distress abd - soft, BS+, NT ext - 1+ pitting edema from knees to feet - modestly improved; pulses feet 1-2+ b/l; wearing compression stockings Results & Data Results & Data Vital Signs (Past 12 Hours) Vital Signs Temp Pulse Pulse Pulse Resp BP Pulse Ox 05/21/24 15:24 36.6 C 61 18 150/71 H 97 05/21/24 11:50 36.8 C 58 L 18 142/68 H 99 05/21/24 07:19 36.9 C 70 18 150/72 H 98 Laboratory Results Laboratory Results - last 24 hr 05/21/24 06:34 WBC 8.42 RBC 2.87 L Hgb 8.9 L Hct 27.3 L MCV 95.1 MCH 31.0 MCHC 32.6 RDW Std Deviation 49.8 H RDW Coeff of [place] 14.4 Plt Count 155 MPV 11.4 Sodium 139 Potassium 3.6 Chloride 105 Carbon Dioxide 27 Anion Gap 7 BUN 52 H Creatinine 3.06 H D Est Cr Clr Drug Dosing 26.4 eGFR 19.88 BUN/Creatinine Ratio 17.0 Glucose 172 H Estimat Average Glucose 163 Hemoglobin A1c 7.3 H Calcium 8.6 Total Bilirubin 0.6 AST 20 ALT 5 L Alkaline Phosphatase 92 Total Protein 5.8 L Albumin 3.4 Globulin 2.4 L Albumin/Globulin Ratio 1.4 05/21/24 05/21/24 05/21/24 08:03 12:11 17:10 POC Glucose 167 H 165 H 181 H PG Care Time/CCT Total # of Minutes Spent Total Time Spent with Patient: Total time spent is greater than 50% in coordination of care (as documented) at patient's floor/unit and/or counseling patient: Coding Level of Care Code 83498 SUB INP/OBS CARE 2/35MIN Diagnoses End-stage renal disease needing dialysis N18.6; Z99.2 Fluid overload E87.70 Pulmonary edema J81.1 Acute kidney injury superimposed on CKD N17.9; N18.9 Chronic kidney disease, stage 5, kidney failure N18.5 Anemia D64.9 Anemia type: unspecified type Left bundle-branch block I44.7 Diabetic nephropathy associated with type 2 diabetes mellitus E11.21 Primary hypertension I10 Hypertension type: primary hypertension Benign prostatic hyperplasia without lower urinary tract symptoms N40.0 Lower urinary tract symptom presence: symptoms absent Asthma J45.909 Morbid obesity E66.01 Hx of temporal arteritis Z87.39 Type 2 diabetes mellitus E11.9 Hepatitis B surface antigen positive R76.8 Hypokalemia E87.6 (6) Anemia Anemia type: unspecified type Qualified Code(s): D64.9 - Anemia, unspecified (9) Hypertension Hypertension type: primary hypertension Qualified Code(s): I10 - Essential (primary) hypertension (10) Benign prostatic hyperplasia Lower urinary tract symptom presence: symptoms absent Qualified Code(s): N40.0 - Benign prostatic hyperplasia without lower urinary tract symptoms
[2024-05-22] MEDS ORDERED: SODIUM CHLORIDE 0.9% 1,000 ML IV PRN (07:00)
[2024-05-22 07:49] LABS: Hematocrit (blood only) 27.2 % (42.0-52.0); Mean Corpuscular Hemoglobin 31.4 pg (25.0-34.0); Mean Corpuscular Hgb Conc 33.1 g/dL (32.0-36.0); Mean Corpuscular Volume 94.8 fL (80.0-100.0); Mean Platelet Volume 11.3 fL (9.4-12.4); Platelet Count 146 K/uL (130-400); RDW Coefficient of Variation 14.6 % (11.5-14.5); RDW Standard Deviation 50.7 fL (36.4-46.3); Red Blood Count 2.87 M/uL (4.70-6.10); White Blood Count 7.82 K/ul (4.8-10.8)
[2024-05-22 08:01] LABS: BUN Creatinine Ratio 16.2 (10-20); Calcium 8.5 mg/dl (8.6-10.3); Creatinine Clr Calc Pharmacy 20.9 ml/min; Potassium 3.6 mmol/L (3.5-5.1)
--- NOTE | 2024-05-22 08:30 | Nephrology Progress Note ---
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 Orders have been placed in EMR and HD RN notified * L BC AVF placed 04/21/24, not yet mature for use * Monitor BMP * Renal diabetic diet * Nephrovite one daily * Case management consulted to set up outpatient HD at [facility] * Hepatitis B testing - negative (2) Anemia: Plan: * MENG * Day #3/ IV Venofer 200 mg daily Admission and Anticipated Discharge Date Admission Date: May 18, 2024 Subjective Mr. Broderick was evaluated in his hospital room this morning. He had a private room last evening and reports that he slept better. Mr. Broderick reports that his LE swelling is improved. Review of Systems Constitutional: no fever Eyes: no problem reported Ear, Nose, Mouth, Throat: no problem reported Respiratory: no cough and no dyspnea Cardiovascular: no chest pain Gastrointestinal: no abdominal pain, no nausea, no vomiting and no diarrhea/loose stools Integumentary: no rash Physical Exam Constitutional: + overweight; not in distress Eyes: PERRL, conjunctivae normal, anicteric sclerae ENMT: Ears: + hearing impairment Neck: trachea midline, no thyromegaly Respiratory: normal respiratory effort, lungs clear to auscultation Cardiovascular: Rate/Rhythm: regular rate and regular rhythm (no rub) Extremities: + edema (1+ pretibial pitting edema) and + AV fistula (+ bruit) Gastrointestinal (Abdomen): Inspection/Auscultation: normal bowel sounds; abdomen not distended Percussion/Palpation: no guarding Musculoskeletal: Extremities: no cyanosis Skin: no rashes, warm and dry Neurologic: awake; not confused Results & Data Vital Signs (Past 12 Hours) Vital Signs Temp Pulse Pulse Pulse Resp BP Pulse Ox 05/22/24 07:39 36.7 C 67 18 152/57 H 96 05/22/24 05:54 61 05/22/24 03:26 36.8 C 69 18 150/78 H 98 05/21/24 23:44 36.5 C 82 20 174/66 H 96 05/21/24 21:41 70 O2 Del Method O2 Flow Rate 05/22/24 07:39 Room Air 05/22/24 05:54 05/22/24 03:26 Nasal Cannula 2 05/21/24 23:44 Nasal Cannula 2 05/21/24 21:41 Laboratory Results Laboratory Results - last 24 hr 05/18/24 05/18/24 05/21/24 13:50 14:36 06:34 WBC RBC Hgb Hct MCV MCH MCHC RDW Std Deviation RDW Coeff of [place] Plt Count MPV Sodium Potassium Chloride Carbon Dioxide Anion Gap BUN Creatinine Est Cr Clr Drug Dosing eGFR BUN/Creatinine Ratio Glucose POC Glucose Estimat Average Glucose 163 Hemoglobin A1c 7.3 H Calcium Hep Bs Ag Confirmation NON-REACTIVE Hep B Core IgM Ab NON-REACTIVE Hepatitis C Ab Screen 05/21/24 05/21/24 05/21/24 12:11 17:10 20:08 WBC RBC Hgb Hct MCV MCH MCHC RDW Std Deviation RDW Coeff of [place] Plt Count MPV Sodium Potassium Chloride Carbon Dioxide Anion Gap BUN Creatinine Est Cr Clr Drug Dosing eGFR BUN/Creatinine Ratio Glucose POC Glucose 165 H 181 H 205 H Estimat Average Glucose Hemoglobin A1c Calcium Hep Bs Ag Confirmation Hep B Core IgM Ab Hepatitis C Ab Screen 05/22/24 05/22/24 07:31 08:11 WBC 7.82 RBC 2.87 L Hgb 9.0 L Hct 27.2 L MCV 94.8 MCH 31.4 MCHC 33.1 RDW Std Deviation 50.7 H RDW Coeff of [place] 14.6 H Plt Count 146 MPV 11.3 Sodium 138 Potassium 3.6 Chloride 105 Carbon Dioxide 26 Anion Gap 7 BUN 63 H Creatinine 3.88 H D Est Cr Clr Drug Dosing 20.9 eGFR 14.95 BUN/Creatinine Ratio 16.2 Glucose 114 H POC Glucose 131 H Estimat Average Glucose Hemoglobin A1c Calcium 8.5 L Hep Bs Ag Confirmation Hep B Core IgM Ab Hepatitis C Ab Screen Pending PG Care Time/CCT Total # of Minutes Spent Total Time Spent with Patient: Total time spent is greater than 50% in coordination of care (as documented) at patient's floor/unit and/or counseling patient: Coding Level of Care Code 64827 SUB INP/OBS CARE 3/50MIN Diagnoses End-stage renal disease needing dialysis N18.6; Z99.2 Anemia D64.9 Anemia type: unspecified type (2) Anemia Anemia type: unspecified type Qualified Code(s): D64.9 - Anemia, unspecified
[2024-05-22] MEDS: EPOETIN ALFA 10,000 UNITS/ML VIAL IV SCH (13:41)
[2024-05-22] MEDS: HEPARIN SOD (PORCINE) 1000 UNIT/ML IV SCH ×2 (13:41→16:32)
--- NOTE | 2024-05-22 19:19 | Hospitalist Progress Note ---
Date of Service May 22, 2024 Assessment & Plan (1) End-stage renal disease needing dialysis: (2) Fluid overload: (3) Pulmonary edema: (4) Acute kidney injury superimposed on CKD: (5) Chronic kidney disease, stage 5, kidney failure: (6) Anemia: (7) Left bundle-branch block: (8) Diabetic nephropathy associated with type 2 diabetes mellitus: (9) Hypertension: (10) Benign prostatic hyperplasia: (11) Asthma: (12) Morbid obesity: (13) Hx of temporal arteritis: (14) Type 2 diabetes mellitus: (15) Hepatitis B surface antigen positive: (16) Hypokalemia: Plan 79yo male with history of CKD stage 4/5, recent LUE AV fistula creation (04/21/24), morbid obesity BMI ~40, T2DM, HTN, previous temporal arteritis treated with 12+ months of steroid therapy - now off such, gout, presumed CAD, GERD, LBBB -- presented with pulm edema/volume overload/progressive weight gain. His volume overload is on the basis of advanced CKD / development of ESRD rather than a primary cardiac issue. #volume overload / pulmonary edema - in the face of IDALMIS on CKD stage 4/5 - now at ESRD status -- volume status IMPROVED * 05/19 - HD catheter placed by Dr Carrizales * 05/19 - first HD session * 05/20 - 2nd HD session * 05/22 - today - 3rd session, 3 L UF removed w/o issue * outpatient dialysis plan - has chair on //Sat at [facility] * there are no plans to dialyze tomorrow here at [facility] * appreciate nephrology & vascular surgery assistance #hypokalemia - * lowest K 2.9 this admission * replaced and resolved #T2DM - * a1c 7.9% in 01/31 * a1c 7.3% this admission * cont lantus-novolog #LBBB - * chronic, no Rx needed * no obvious ischemic symptoms at this time #HTN - * cont amlodipine * cont coreg BID * cont imdur BID * cont losartan (in laurie of olmesartan) #morbid obesity - BMI ~39/40 #asthma - * no exacerbation at this time * doubt contributing to dyspnea, etc #h/o chronic diastolic CHF - * could consider repeat echo while here but suspect his volume overload is kidney-related rather than diastolic CHF; thus defer echo for now #h/o temporal arteritis - * resolved, in remission * no recent headaches * no recent prednisone usage #anemia - * 2nd to advanced CKD * h/h at baseline * Fe studies reviewed; Dr Lance has ordered IV venofer; dose #3 today * will have Epogen as well #DVT proph - * heparin 5000 units BID #HepB surface Ag + * false positive; confirmatory test NEGATIVE * reassurance given to patient * HepC ab also NEGATIVE d/c home tomorrow Admission and Anticipated Discharge Date Admission Date: May 18, 2024 Subjective no events overnight had HD session #3 today - 3 L UF removed w/o issue he feels better dyspnea improved edema improved eating has improved during the stay Review of Systems Review of Systems: CV - no chest pain pulm - has not c/o cough since admission Physical Exam Physical Exam: gen - sitting at side of bed, NAD; looks very good today HENT - MMM neck - no obvious JVD heart - RRR, s1 s2, 1/6 JAKE LSB chest wall - new HD catheter, tunneled, right IJ -- clean, no bleeding lungs - scant b/l basilar rales; no wheezing, no distress, airation improved abd - soft, BS+, NT ext - <1+ pitting edema from knees to feet - improved; pulses feet 1-2+ b/l; wearing compression stockings Results & Data Results & Data Vital Signs (Past 12 Hours) Vital Signs Temp Pulse Pulse Pulse Resp BP BP 05/22/24 17:14 37.1 C 74 18 135/63 05/22/24 16:40 36.5 C 65 137/59 L 05/22/24 16:30 59 L 131/58 L 05/22/24 16:00 58 L 135/57 L 05/22/24 15:30 61 128/54 L 05/22/24 15:00 58 L 130/51 L 05/22/24 14:30 89 126/53 L 05/22/24 14:00 63 134/56 L 05/22/24 13:36 69 140/58 L 05/22/24 13:28 36.6 C 73 05/22/24 13:00 69 05/22/24 11:29 36.6 C 66 18 144/68 H 05/22/24 11:06 05/22/24 07:39 36.7 C 67 18 152/57 H Pulse Ox O2 Del Method O2 Flow Rate 05/22/24 17:14 95 Nasal Cannula 2 05/22/24 16:40 05/22/24 16:30 05/22/24 16:00 05/22/24 15:30 05/22/24 15:00 05/22/24 14:30 05/22/24 14:00 05/22/24 13:36 05/22/24 13:28 05/22/24 13:00 05/22/24 11:29 99 Nasal Cannula 2 05/22/24 11:06 Room Air 05/22/24 07:39 96 Room Air Laboratory Results Laboratory Results - last 24 hr 05/18/24 05/18/24 05/21/24 13:50 14:36 20:08 WBC RBC Hgb Hct MCV MCH MCHC RDW Std Deviation RDW Coeff of [place] Plt Count MPV Sodium Potassium Chloride Carbon Dioxide Anion Gap BUN Creatinine Est Cr Clr Drug Dosing eGFR BUN/Creatinine Ratio Glucose POC Glucose 205 H Calcium Hep Bs Ag Confirmation NON-REACTIVE Hep B Core IgM Ab NON-REACTIVE Hepatitis C Ab Screen 05/22/24 05/22/24 05/22/24 07:31 08:11 12:01 WBC 7.82 RBC 2.87 L Hgb 9.0 L Hct 27.2 L MCV 94.8 MCH 31.4 MCHC 33.1 RDW Std Deviation 50.7 H RDW Coeff of [place] 14.6 H Plt Count 146 MPV 11.3 Sodium 138 Potassium 3.6 Chloride 105 Carbon Dioxide 26 Anion Gap 7 BUN 63 H Creatinine 3.88 H D Est Cr Clr Drug Dosing 20.9 eGFR 14.95 BUN/Creatinine Ratio 16.2 Glucose 114 H POC Glucose 131 H 160 H Calcium 8.5 L Hep Bs Ag Confirmation Hep B Core IgM Ab Hepatitis C Ab Screen Negative 05/22/24 17:08 WBC RBC Hgb Hct MCV MCH MCHC RDW Std Deviation RDW Coeff of [place] Plt Count MPV Sodium Potassium Chloride Carbon Dioxide Anion Gap BUN Creatinine Est Cr Clr Drug Dosing eGFR BUN/Creatinine Ratio Glucose POC Glucose 122 H Calcium Hep Bs Ag Confirmation Hep B Core IgM Ab Hepatitis C Ab Screen PG Care Time/CCT Total # of Minutes Spent Total Time Spent with Patient: Total time spent is greater than 50% in coordination of care (as documented) at patient's floor/unit and/or counseling patient: Coding Level of Care Code 95026 SUB INP/OBS CARE MIN Diagnoses End-stage renal disease needing dialysis N18.6; Z99.2 Fluid overload E87.70 Pulmonary edema J81.1 Acute kidney injury superimposed on CKD N17.9; N18.9 Chronic kidney disease, stage 5, kidney failure N18.5 Anemia D64.9 Anemia type: unspecified type Left bundle-branch block I44.7 Diabetic nephropathy associated with type 2 diabetes mellitus E11.21 Primary hypertension I10 Hypertension type: primary hypertension Benign prostatic hyperplasia without lower urinary tract symptoms N40.0 Lower urinary tract symptom presence: symptoms absent Asthma J45.909 Morbid obesity E66.01 Hx of temporal arteritis Z87.39 Type 2 diabetes mellitus E11.9 Hepatitis B surface antigen positive R76.8 Hypokalemia E87.6 (6) Anemia Anemia type: unspecified type Qualified Code(s): D64.9 - Anemia, unspecified (9) Hypertension Hypertension type: primary hypertension Qualified Code(s): I10 - Essential (primary) hypertension (10) Benign prostatic hyperplasia Lower urinary tract symptom presence: symptoms absent Qualified Code(s): N40.0 - Benign prostatic hyperplasia without lower urinary tract symptoms
[2024-05-22] MEDS: LANTUS PER UNIT CHARGE SQ SCH (20:48)
[2024-05-23 07:42] VITALS: BP 157/67; TEMP 97.9; O2SAT 94
--- NOTE | 2024-05-23 08:38 | Nephrology Progress Note ---
Date of Service May 23, 2024 Assessment & Plan (1) End-stage renal disease needing dialysis: Plan: * ESKD due to DKD, hypertensive nephrosclerosis * R IJ TCC placed 05/19/24 and 1st run HD completed * Dialyzed yesterday for 3L UF. No complications * L BC AVF placed 04/21/24, not yet mature for use * Monitor BMP * Renal diabetic diet * Nephrovite one daily * Case management consulted to set up outpatient HD at [facility] * Hepatitis B testing - negative * If discharged home today, patient still makes urine. Please continue oral diuretic (Torsemide 40 mg BID) (2) Anemia: Plan: * MENG * Day #4/5 IV Venofer 200 mg daily Admission and Anticipated Discharge Date Admission Date: May 18, 2024 Subjective Mr. Broderick was evaluated in his hospital room. He reports that his LE swelling is improved and he was able to walk in the hallway this morning. He hopes to be discharged to home today and start outpatient HD on . Review of Systems Constitutional: no fever Eyes: no problem reported Ear, Nose, Mouth, Throat: no problem reported Respiratory: no cough and no dyspnea Cardiovascular: no chest pain Gastrointestinal: no abdominal pain, no nausea, no vomiting and no diarrhea/loose stools Integumentary: no rash Physical Exam Constitutional: + overweight; not in distress Eyes: PERRL, conjunctivae normal, anicteric sclerae ENMT: Ears: + hearing impairment Neck: trachea midline, no thyromegaly Respiratory: normal respiratory effort, lungs clear to auscultation Cardiovascular: Rate/Rhythm: regular rate and regular rhythm (no rub) Extremities: + edema (1+ pretibial pitting edema) and + AV fistula (+ bruit) Gastrointestinal (Abdomen): Inspection/Auscultation: normal bowel sounds; abdomen not distended Percussion/Palpation: no guarding Musculoskeletal: Extremities: no cyanosis Skin: no rashes, warm and dry Neurologic: awake; not confused Results & Data Vital Signs (Past 12 Hours) Vital Signs Temp Pulse Pulse Resp BP Pulse Ox O2 Del Method 05/23/24 07:41 36.6 C 70 18 157/67 H 94 Room Air 05/23/24 07:14 67 05/23/24 03:43 36.7 C 67 18 138/63 99 Nasal Cannula 05/22/24 23:17 37.0 C 66 18 129/60 99 Nasal Cannula 05/22/24 22:10 68 O2 Flow Rate 05/23/24 07:41 05/23/24 07:14 05/23/24 03:43 2 05/22/24 23:17 2 05/22/24 22:10 PG Care Time/CCT Total # of Minutes Spent Total Time Spent with Patient: Total time spent is greater than 50% in coordination of care (as documented) at patient's floor/unit and/or counseling patient: Coding Level of Care Code 10981 SUB INP/OBS CARE 3/50MIN Diagnoses End-stage renal disease needing dialysis N18.6; Z99.2 Anemia D64.9 Anemia type: unspecified type (2) Anemia Anemia type: unspecified type Qualified Code(s): D64.9 - Anemia, unspecified
--- NOTE | 2024-05-23 11:38 | Discharge Summary ---
Discharge Summary Date of Service date of admission - May 18, 2024 date of discharge - May 23, 2024 Principal Dx & Hospital Course #1 = Principal Diagnosis (1) End-stage renal disease needing dialysis: (2) Fluid overload: (3) Pulmonary edema: (4) Acute kidney injury superimposed on CKD: (5) Chronic kidney disease, stage 5, kidney failure: (6) Anemia: (7) Left bundle-branch block: (8) Diabetic nephropathy associated with type 2 diabetes mellitus: (9) Hypertension: (10) Benign prostatic hyperplasia: (11) Asthma: (12) Morbid obesity: (13) Hx of temporal arteritis: (14) Type 2 diabetes mellitus: (15) Hepatitis B surface antigen positive: (16) Hypokalemia: Plan 79yo male with history of CKD stage 4/5, recent LUE AV fistula creation (04/21/24), morbid obesity BMI ~40, T2DM, HTN, previous temporal arteritis t reated with 12+ months of steroid therapy - now off such, gout, presumed CAD, GERD, LBBB -- presented with pulm edema/volume overload/progressive weight gain. His volume overload was on the basis of advanced CKD / development of ESRD rather than a primary cardiac issue. #volume overload / pulmonary edema - in the face of IDALMIS on CKD stage 4/5 - now at ESRD status - * volume status IMPROVED s/p 3 HD sessions while hospitalized * 05/19 - tunneled HD catheter placed by Dr Jef Carrizales * 05/19 - 1st HD session * 05/20 - 2nd HD session * 05/22 - 3rd HD session * outpatient dialysis plan - has chair on //Sat at [facility] * [facility] provided HD assistance during this hospitalization * he will f/u with his primary him assistant, Dr Florencio Lance, after discharge for ongoing HD needs * nephrocaps 1 daily prescribed at discharge #hypokalemia - * lowest K 2.9 this admission * replaced and resolved #T2DM - * a1c 7.9% in 01/31 * a1c 7.3% this admission * cont Tresiba & novolog upon transition home #LBBB - * chronic, no Rx needed * no obvious ischemic symptoms at this time #HTN - * cont amlodipine 2.5mg qam * cont coreg 12.5mg BID * cont imdur 30mg BID * cont olmesartan 40mg daily * cont torsemide 40mg BID #morbid obesity - BMI ~39/40 #asthma - * no exacerbation while hospitalized * doubt contributing to current dyspnea #h/o chronic diastolic CHF - * suspect his volume overload was ESRD-related rather than diastolic CHF #h/o temporal arteritis - * resolved, in remission * no recent headaches * no recent prednisone usage #anemia - * 2nd to advanced CKD * h/h at baseline while here * Fe studies checked, transferrin sat <20%; thus received IV venofer while here (4 doses) * s/p Epogen during the stay #HepB surface Ag + * false positive; confirmatory test was NEGATIVE * reassurance given to patient & his * HepC ab also NEGATIVE #Insomnia & anxiety - * patient requested medicine for such * was given hydroxyzine 10mg q8h prn and tolerated the medicine without excess sedation * small # of hydroxyzine tabs 10mg were given at discharge for prn usage Cleared by PT/OT for home Will set patient up with home PT/OT to help with gait, conditioning, etc. Notes For Next Care Provider Hemodialysis schedule -- //Saturdays -- [facility] Medication Changes From Visit hydroxyzine 10mg q8h prn sleep or anxiety nephrocaps 1 daily Admission HPI Per Admitting Provider 79yo male with history of CKD stage 4/5, recent LUE AV fistula creation (04/21/24), morbid obesity BMI ~40, T2DM, HTN, previous temporal arteritis treated with 12+ months of steroid therapy - now off such, gout, presumed CAD, GERD, LBBB - presents from home with a 4 pound weight gain over 1-2 days, worsening dyspnea on exertion, worsening abdominal swelling & edema. This is despite use of torsemide 40mg TID. He is only voiding about 3-4 times/daily despite copious diuretics. Denies chest pain or chest tightness. Denies use of night-time O2/CPAP/BiPAP. Patient mentioned that his potassium was recently high and he was placed on Lokelma for such on 05/05/24. Discharge Exam gen - sitting at side of bed, NAD; looks good HENT - MMM neck - no obvious JVD heart - RRR, s1 s2, 1/6 JAKE LSB chest wall - new HD catheter, tunneled, right IJ -- clean, no bleeding lungs - scant b/l basilar rales; no wheezing, no distress, airation improved abd - soft, BS+, NT ext - <1+ pitting edema from knees to feet - improved; pulses feet 1-2+ b/l; wearing compression stockings psych - a/o x 3 vascular - LUE - AV fistula present with thrill Discharge Plan Discharge Items Patient Disposition: Home - Home Health Services Reason For Visit: ADVANCED KIDNEY DISEASE; VOLUME OVERLOAD Discharge Diagnosis: 1. end-stage renal disease with initiation of dialysis 2. difficulty breathing due to fluid build-up from kidney disease - improved with dialysis treatments 3. volume overload/fluid build-up in legs/abdomen - due to kidney disease - improving with dialysis 4. diabetes 5. false positive hepatitis B test; you do not have hepatitis B or C 6. high blood pressure 7. left arm AV fistula Activity: As commented below Activity Comment: always protect your left arm due to the fistula present (see handout) Bathing Comment: keep your dialysis catheter covered, clean, and dry; tub baths only Non-emergency contact: Primary Care Provider and Welder Tech Call non-emergency contact if: you have any medication questions and your symptoms worsen Follow-up/Referrals: Ralph Lance MD [Physician] - (report to the [facility] on , 05/25 as scheduled for your first outpatient dialysis treatment; please call Dr Lance if you have any questions or concerns ) Mariusz Bustamante MD [Primary Care Provider] - 05/30/24 11:00 am () Jones Carrizales MD [Physician] - (please call Dr Carrizales's office if you have any concerns about your new dialysis catheter) Diet: Carb Consistent or DM2 and Dialysis Renal Fluids: 1800ml (7 cups) Diet Texture: Dental soft (bite-sized) Addtl Attending Provider Instructions: Mr Broderick, You were admitted to the hospital due to difficulty breathing and increasing fluid weight gain. All of your symptoms as well as the fluid build-up were due to worsening kidney disease. At this point the nephrology team felt you had reached end-stage kidney disease status and recommended starting dialysis treatments. Dr Jef Carrizales placed a dialysis catheter in your right upper chest, and subsequently you had 3 dialysis treatments while here. Your shortness of breath, edema/fluid, and your weight all improved with removal of fluid through the dialysis treatments. Thus far you have tolerated the treatments well. Of note - your labs did NOT show evidence of hepatitis B or hepatitis C infection. The hepatitis B test that was positive was a false positive test. Recommendations - 1. report to the [facility] this , 05/25/24, as scheduled for your first treatment 2. please take 40mg of torsemide upon return home today; just take 1 dose today because of the timing of your discharge 3. then start torsemide 40mg twice daily as previous on 05/24/24 4. see handouts on caring for your fistula, kidney disease diet, etc. 5. limit total fluid consumption to about 1800ml each day 6. please talk to Dr Bustamante about getting a sleep study later this year 7. for anxiety or sleep - * hydroxyzine 10mg every 12 hours as needed * side effects - dry mouth, dry eyes, sleepiness 8. take special vitamins for those with kidney problems - * nephrocaps 1 daily * script sent to pharmacy for you Follow-up - see separate section Return to [facility] if - * you have fevers over 100 degrees * you have any concerns about your new dialysis catheter * you have worsening shortness of breath * you have chest pains * any other concerns It was our pleasure to care for you! -Dr Garcia Pending Studies at Discharge: No Stand-Alone Forms: My [facility] [employer], Smoking Cessation Medications and DC Order Prescriptions: New Renal Caps 1 mg Capsule 1 cap PO QAM Qty: 30 5RF Continued levalbuterol tartrate [Xopenex HFA] 45 mcg/actuation HFA aerosol inhaler 2 inh INH Q6H PRN (Reason: shortness of breath) Qty: 15 2RF (DME) pen needle, diabetic [BD Denia 2nd Gen Pen Needle] 32 gauge x 5/32" needle See Rx Instructions miscellaneous .MEDSUPPLY Qty: 150 5RF Rx Instructions: change new pen needle 5x a day (DME) Anti-Embolism Stockings Misc See Rx Instructions .Route Qty: 2 0RF Rx Instructions: As directed anti-embolism stockings melatonin 3 mg tablet 12 mg PO HS PRN (Reason: insomnia) Qty: 120 5RF isosorbide mononitrate 30 mg tablet extended release 24 hr 30 mg PO BID Qty: 180 3RF carvedilol 12.5 mg tablet 12.5 mg PO BID Qty: 180 3RF allopurinol 100 mg tablet 100 mg PO QAM Qty: 90 3RF nystatin 100,000 unit/gram powder 1 applic TOP DAILY PRN (Reason: Rash) Qty: 30 4RF doxazosin [Cardura] 4 mg tablet 4 mg PO HS Qty: 90 3RF insulin aspart U-100 [Novolog FlexPen U-100 Insulin] 100 unit/mL (3 mL) insulin pen See Rx Instructions SQ DAILY Qty: 15 5RF Patient Comments: 4 units Rx Instructions: Inject 4 units with meals plus sliding scale; TDD 35 units Praluent Pen 75 mg/mL pen injector 75 mg subcut Q14D Qty: 2 6RF Patient Comments: "hasn't been taking - does see Dr Issa today and may renew order" as per patients (DME) FreeStyle Saleem 2 Sensor Kit See Rx Instructions .Route Qty: 1 3RF Rx Instructions: Change sensor every 14 days nitroglycerin [Nitrostat] 0.3 mg tablet, sublingual 0.3 mg sublingual Q5M PRN (Reason: chest pain) Qty: 30 3RF Patient Comments: has never needed it Rx Instructions: do not exceed 3 doses per episode azelastine 137 mcg (0.1 %) aerosol,spray 2 spray intranasal BID PRN (Reason: nasal congestion) Qty: 30 11RF Rx Instructions: administer into each nostril acetaminophen [Tylenol Extra Strength] 500 mg tablet 1,000 mg PO TID PRN (Reason: Pain) glucagon 3 mg/actuation spray,non-aerosol 3 mg intranasal ONCE PRN (Reason: hypoglycemia) Qty: 2 1RF polyethylene glycol 3350 [Miralax] 17 gram/dose powder 17 g PO DAILY budesonide-formoterol 80-4.5 mcg/actuation HFA aerosol inhaler 1 inh inhalation BID Qty: 10.2 2RF aspirin [Adult Low Dose Aspirin] 81 mg tablet,delayed release (DR/EC) 81 mg PO QAM fluticasone propionate 50 mcg/actuation spray,suspension 2 spray intranasal UD PRN (Reason: Congestion) Rx Instructions: administer into each nostril ergocalciferol (vitamin D2) 1,250 mcg (50,000 unit) capsule 1,250 mcg PO Q30D Rx Instructions: TAKE THIS MED MONTHLY ON THE FIRST WEDNESDAY OF THE MONTH. amlodipine 2.5 mg tablet 2.5 mg PO QAM guaifenesin [Mucinex] 600 mg Tablet Extended Release 12hr 600 mg PO BID hydrocortisone acetate 25 mg suppository [address] HS PRN (Reason: Hemorrhoids) Rx Instructions: Use for 7-10 days prn, repeat as needed. insulin degludec [Tresiba FlexTouch U-200] 200 unit/mL (3 mL) insulin pen 16 unit SQ HS oxycodone-acetaminophen [Percocet] 5-325 mg tablet 1 tab PO Q6H PRN (Reason: pain) Qty: 20 0RF olmesartan 40 mg tablet 40 mg PO DAILY Hold Instructions: hyperkalemia Rx Instructions: TAKE 1 TABLET BY MOUTH DAILY Changed torsemide 20 mg tablet 40 mg PO BID Qty: 0 0RF Rx Instructions: take every morning and each afternoon albuterol sulfate 90 mcg/actuation HFA aerosol inhaler 2 inh inhalation QID PRN (Reason: shortness of breath or wheezing) Qty: 6.7 5RF Discontinued Lokelma 10 gram powder in packet 10 g PO DAILY Qty: 30 2RF No Action pantoprazole 40 mg tablet,delayed release (DR/EC) 40 mg PO BID Qty: 180 3RF hydroxyzine HCl 10 mg tablet 10 mg PO Q12H PRN (Reason: anxiety or sleep) Qty: 30 0RF Discharge Orders: Discharge Order (Routine); Ordered 05/23/24 Ordered By: Bhargav Arnold/Other Patient Handouts: Managing Type 2 Diabetes, Hemodialysis, Caring for Your Hemodialysis Access, ED Diet for Chronic Kidney Disease Admission Data Admit Date/Time: 05/18/24 18:06 Attending Provider: Bhargav Garcia Admit Provider: Bhargav Garcia Primary Care Provider: Mariusz Bustamante Other Providers: Abe Guillen; Jones Carrizales; [facility]; Ralph Lance Other Interventions: Discharge Summary Assessment (RN) Last Done: 05/23/24 12:28 Hospital Stay Data Consultations 05/18/24 22:27 Consult Nephrology Routine 05/19/24 08:56 Consult Vascular Surgery Routine PT, OT Procedures Performed Operation Date: 05/19/24 09:45 Actual Procedures Insertion of Perm Cath,Right Internal Jugular Approach, Ultrasound Localization of Right Internal Jugular Vein, Fluoroscopy for Positioning, Moderate Sedation [id number] - Jones Carrizales MD HD x 3 sessions Diagnostic Imagining Performed Chest X-Ray 05/18/24 13:32 XR chest 1V portable CLINICAL HISTORY: sob COMPARISON STUDY: 04/14/2024 FINDINGS: Compared with a prior examination, mild vascular congestion is progressive. There is a small amount of fluid in the minor fissure. Heart size remains enlarged. A focal area of increased parenchymal density is present in the right cardiophrenic angle. IMPRESSION: Suspected CHF. Right basilar infiltrate not excluded. ACT 112: Negative or not required by law. Electronically signed by: Snow Beltre M.D. 05/18/2024 2:33 PM Discharge Instructions Given to Patient (Per Discharging Provider) Mr Broderick, Rashid were admitted to the hospital due to difficulty breathing and increasing fluid weight gain. All of your symptoms as well as the fluid build-up were due to worsening kidney disease. At this point the nephrology team felt you had reached end-stage kidney disease status and recommended starting dialysis treatments. Dr Jef Carrizales placed a dialysis catheter in your right upper chest, and subseq uently you had 3 dialysis treatments while here. Your shortness of breath, edema/fluid, and your weight all improved with removal of fluid through the dialysis treatments. Thus far you have tolerated the treatments well. Of note - your labs did NOT show evidence of hepatitis B or hepatitis C infection. The hepatitis B test that was positive was a false positive test. Recommendations - 1. report to the [facility] this , 05/25/24, as scheduled for your first treatment 2. please take 40mg of torsemide upon return home today; just take 1 dose today because of the timing of your discharge 3. then start torsemide 40mg twice daily as previous on 05/24/24 4. see handouts on caring for your fistula, kidney disease diet, etc. 5. limit total fluid consumption to about 1800ml each day 6. please talk to Dr Bustamante about getting a sleep study later this year 7. for anxiety or sleep - * hydroxyzine 10mg every 12 hours as needed * side effects - dry mouth, dry eyes, sleepiness 8. take special vitamins for those with kidney problems - * nephrocaps 1 daily * script sent to pharmacy for you Follow-up - see separate section Return to [place] if - * you have fevers over 100 degrees * you have any concerns about your new dialysis catheter * you have worsening shortness of breath * you have chest pains * any other concerns It was our pleasure to care for you! -Dr Garcia Total Time Total Time Spent Total Time Spent (In Minutes): 45 Coding Level of Care Code 31183 INP/OBS DISCH >30 MIN Diagnoses End-stage renal disease needing dialysis N18.6; Z99.2 Fluid overload E87.70 Pulmonary edema J81.1 Acute kidney injury superimposed on CKD N17.9; N18.9 Chronic kidney disease, stage 5, kidney failure N18.5 Anemia D64.9 Anemia type: unspecified type Left bundle-branch block I44.7 Diabetic nephropathy associated with type 2 diabetes mellitus E11.21 Primary hypertension I10 Hypertension type: primary hypertension Benign prostatic hyperplasia without lower urinary tract symptoms N40.0 Lower urinary tract symptom presence: symptoms absent Asthma J45.909 Morbid obesity E66.01 Hx of temporal arteritis Z87.39 Type 2 diabetes mellitus E11.9 Hepatitis B surface antigen positive R76.8 Hypokalemia E87.6
[2024-05-23 12:30] VITALS: PULSE 80
== END 2024-05-23 13:48 | disposition home health service (06) | DRG 981 ==
LOC: SUATTDRO → ED 13:05 → 2W 18:06
DX: J45.909 Unspecified asthma, uncomplicated; N40.0 Benign prostatic hyperplasia without lower urinary tract symptoms; Z99.2 Dependence on renal dialysis; Z83.3 Family history of diabetes mellitus; Z79.899 Other long term (current) drug therapy; J81.1 Chronic pulmonary edema; E87.6 Hypokalemia; M10.9 Gout, unspecified; N17.9 Acute kidney failure, unspecified; E87.70 Fluid overload, unspecified; D63.1 Anemia in chronic kidney disease; I25.10 Atherosclerotic heart disease of native coronary artery without angina pectoris; I13.2 Hypertensive heart and chronic kidney disease with heart failure and with stage 5 chronic kidney disease, or end stage renal disease; Z79.82 Long term (current) use of aspirin; E11.42 Type 2 diabetes mellitus with diabetic polyneuropathy; E11.21 Type 2 diabetes mellitus with diabetic nephropathy; E11.311 Type 2 diabetes mellitus with unspecified diabetic retinopathy with macular edema; E66.01 Morbid (severe) obesity due to excess calories; K21.9 Gastro-esophageal reflux disease without esophagitis; E11.22 Type 2 diabetes mellitus with diabetic chronic kidney disease; Z79.4 Long term (current) use of insulin; Z88.8 Allergy status to other drugs, medicaments and biological substances; M19.90 Unspecified osteoarthritis, unspecified site; I50.32 Chronic diastolic (congestive) heart failure; D50.9 Iron deficiency anemia, unspecified; N18.6 End stage renal disease; Z87.891 Personal history of nicotine dependence; I44.7 Left bundle-branch block, unspecified; Z87.39 Personal history of other diseases of the musculoskeletal system and connective tissue; Z68.39 Body mass index [BMI] 39.0-39.9, adult; Z82.49 Family history of ischemic heart disease and other diseases of the circulatory system